=== PATIENT | male | born 1975 | race Caucasian/White ===

== ENCOUNTER 2016-05-29 22:00 | Emergency (ER) | payer OTHER ==
[~2016-05-29] VITALS: Ht 198.1 cm; Wt 113.0 kg
[~2016-05-29 22:00] MED LIST: COPA20KI INJ; PERC10TA27 PO
[2016-05-29 22:03] VITALS: BP 124/69; PULSE 60; RESP 16; TEMP 98; O2SAT 100
[2016-05-29] MEDS ORDERED: COPA20KI SQ ×2 (23:20→23:28)
--- NOTE | 2016-05-29 23:21 | PD ---
HPI Chief Complaint: Back/ Neck Pain or Injury Time Seen by Provider: 23:17 Travel History International Travel<30 days: No Contact w/Intl Traveler<30days: No Traveled to known affect area: No History of Present Illness HPI 40-year-old black male with a history of MS presents to emergency department requesting a refill of his medications. He states that he is in a residential. Someone has taken his medications. He states that he's been homeless now for the last several years. He has multiple sclerosis. He was sent to a residential this past week. He has had no recent illness. Patient complains of chronic muscle weakness. [facility] Past Medical History Narrative Medical MS, homelessness Neurologic: Yes (multiple sclerosis) Tetanus Vaccination: < 5 Years Past Surgical History Surgical History: No Previous Surgery Social History Alcohol Use: No Tobacco Use: Yes (03/29 PPD) Substance Use: Yes Allergies-Medications (Allergen,Severity, Reaction): Coded Allergies: No Known Allergies (Unverified , 05/29/16) Reported Meds & Prescriptions Reported Meds & Active Scripts Active Reported Copaxone Inj (Glatiramer Inj) 20 Mg/Ml Syr 20 Mg SQ DAILY Review of Systems Except as stated in HPI: all other systems reviewed are Neg General / Constitutional: No: Fever Eyes: No: Blurred Vision, Photophobia HENT: No: Sore Throat Cardiovascular: No: Chest Pain or Discomfort, Palpitations Respiratory: No: Cough, Shortness of Breath Gastrointestinal: No: Nausea, Vomiting Genitourinary: No: Dysuria, Hematuria Musculoskeletal: Positive: Myalgias, Arthralgias, Limited ROM, Pain (myalgias) Skin: No Rash, No Itching Neurologic: Positive: Weakness (chronic secondary to MS), Coordination Problem , No: Headache Physical Exam Narrative GENERAL: This is a well-nourished, well-developed patient, in no apparent distress. SKIN: No rashes, ecchymoses or lesions. Warm and dry. HEAD: Atraumatic. Normocephalic. EYES: PERRL, EOMI, no discharge or injection. No scleral icterus. EARS: Clear NOSE: Nasal turbinates appear normal. THROAT: Mucosa pink and moist. Airway patent. NECK: Trachea midline. supple, moves head freely. LUNGS: Clear to auscultation. CV: Regular in rhythm. ABDOMEN: Soft nontender. EXT: No clubbing cyanosis or edema. Chronic rigidity and muscle weakness secondary to his MS Data Data Last Documented VS Vital Signs Date Time Temp Pulse Resp B/P Pulse Ox O2 Delivery O2 Flow Rate FiO2 05/29/16 22:03 98.0 60 16 124/69 100 MDM Medical Decision Making Medical Screen Exam Complete: Yes Emergency Medical Condition: Yes Medical Record Reviewed: Yes Differential Diagnosis Differential diagnoses: Multiple sclerosis, med refill, homelessness Narrative Course Unfortunately we don't carry this medication here at the hospital. He is given a prescription and discharged in stable condition. This is medication refill, MS, homelessness Diagnosis Primary Impression: Medication refill Additional Impressions: Multiple sclerosis Homelessness Patient Instructions: General Instructions Additional Instructions: Rest. Medications as directed. Return to the ER for emergencies. Med/Other Pt SpecificInfo: Prescription(s) given Disposition: 01 DISCHARGE HOME Condition: Stable Marck Calvert May 29, 2016 23:21 Marck Calvert May 29, 2016 23:21
== END 2016-05-30 12:58 | disposition home or self-care (01) ==
LOC: NEPB 22:00
DX: G35 Multiple sclerosis (principal); Z76.0 Encounter for issue of repeat prescription; Z59.0 Homelessness
CPT/HCPCS: 99282

== ENCOUNTER 2016-06-14 19:30 | Emergency (ER) | payer OTHER ==
[~2016-06-14 19:30] MED LIST changes: -COPA20KI INJ; +COPA20KI SQ; -PERC10TA27 PO
[2016-06-14 19:33] VITALS: BP 141/68; PULSE 67; RESP 16; TEMP 97.9; O2SAT 98
[2016-06-14] MEDS ORDERED: SODIUM CHLORIDE 0.9% FLUSH 5 ML FLUSH IVF PRN (23:45)
[2016-06-14 23:56] LABS: AUTOMATED NEUTROPHIL # 6.4 TH/MM3 (1.8-7.7); BASOPHIL # 0.1 TH/MM3 (0-0.2); BASOPHIL % 0.8 % (0.0-2.0); EOSINOPHIL # 0.1 TH/MM3 (0-0.4); EOSINOPHIL % 1.4 % (0.0-4.0); HEMATOCRIT 38.8 % (39.0-51.0); HEMO FLAGS DIFF FINAL; LYMPH % 20.8 % (9.0-44.0); LYMPHOCYTE # 1.9 TH/MM3 (1.0-4.8); MEAN CELL VOLUME 95.3 FL (80.0-100.0); MEAN CORPUSCULAR HEMOGLOBIN 31.9 PG (27.0-34.0); MEAN CORPUSCULAR HGB CONC 33.5 % (32.0-36.0); MONO % 7.8 % (0.0-8.0); NEUT % 69.2 % (16.0-70.0); PLATELET COUNT 257 TH/MM3 (150-450); RED BLOOD COUNT 4.07 MIL/MM3 (4.50-5.90); RED CELL DISTRIBUTION WIDTH 15.3 % (11.6-17.2); WHITE BLOOD COUNT 9.2 TH/MM3 (4.0-11.0)
[2016-06-15] LABS: AMPHETAMINE, URINE NEG (NEG); BARBITURATES, URINE NEG (NEG); COCAINE, URINE NEG (NEG)
[2016-06-15 00:09] LABS: ALT (GPT) 29 U/L (12-78); ANION GAP 8 MEQ/L (5-15); AST (GOT) 18 U/L (15-37); BLOOD UREA NITROGEN 9 MG/DL (7-18); CHLORIDE 105 MEQ/L (98-107); GLOMERULAR FILTRATION RATE 99 ML/MIN (>89); POTASSIUM 4.1 MEQ/L (3.5-5.1); SODIUM (NA) 141 MEQ/L (136-145)
[2016-06-15 00:12] LABS: ACETAMINOPHEN LESS THAN 2.0 MCG/ML (10.0-30.0); ALKALINE PHOSPHATASE 92 U/L (45-117); TOTAL BILIRUBIN ADULT 0.4 MG/DL (0.2-1.0)
--- NOTE | 2016-06-15 01:15 | PD ---
HPI Chief Complaint: Edema Time Seen by Provider: 23:03 Travel History International Travel<30 days: No Contact w/Intl Traveler<30days: No Traveled to known affect area: No History of Present Illness HPI The patient's 40 years old. He arrives complaining of "my feet, my legs, my back." He reports history of chronic back pain. He's had no fever. He's had no chest pain. He denies drug or alcohol abuse today. Patient reports to the triage nurse he is homeless. He also reports he has had edema of the bilateral lower extremities for a couple months now. [facility] Past Medical History Diminished Hearing: No Musculoskeletal: Yes (back pain) Neurologic: Yes (multiple sclerosis) Tetanus Vaccination: > 5 Years Influenza Vaccination: No Past Surgical History Surgical History: No Previous Surgery Social History Alcohol Use: No Tobacco Use: Yes (1/2 PPD) Substance Use: Yes Allergies-Medications (Allergen,Severity, Reaction): Coded Allergies: No Known Allergies (Unverified , 06/14/16) Reported Meds & Prescriptions Reported Meds & Active Scripts Active Review of Systems Except as stated in HPI: all other systems reviewed are Neg General / Constitutional: No: Fever, Chills Musculoskeletal: Positive: Edema Physical Exam Narrative GENERAL: 40-year-old male, no acute distress, resting comfortably in his wheelchair SKIN: Warm and dry. HEAD: Atraumatic. Normocephalic. EYES: Pupils equal and round. No scleral icterus. No injection or drainage. ENT: No nasal bleeding or discharge. Mucous membranes pink and moist. NECK: Trachea midline. No JVD. CARDIOVASCULAR: Regular rate and rhythm. No murmur appreciated. RESPIRATORY: No accessory muscle use. Clear to auscultation. Breath sounds equal bilaterally. GASTROINTESTINAL: Abdomen soft, non-tender, nondistended. Hepatic and splenic margins not palpable. MUSCULOSKELETAL: No obvious deformities. No clubbing. No cyanosis. 2+ pitting edema of the dorsal feet to the knees. No asymmetry or erythema. History NEUROLOGICAL: Awake and alert. No obvious cranial nerve deficits. Motor grossly within normal limits. Normal speech. PSYCHIATRIC: Appropriate mood and affect; insight and judgment normal. Data Data Last Documented VS Vital Signs Date Time Temp Pulse Resp B/P Pulse Ox O2 Delivery O2 Flow Rate FiO2 06/14/16 23:02 18 Room Air 06/14/16 19:33 97.9 67 141/68 98 Vital signs reviewed Orders Complete Blood Count With Diff (06/14/16 23:32) Comprehensive Metabolic Panel (06/14/16 23:32) Blood Glucose (06/14/16 23:32) Ecg Monitoring (06/14/16 23:32) Iv Access Insert/Monitor (06/14/16 23:32) Oximetry (06/14/16 23:32) Sodium Chloride 0.9% Flush (Ns Flush) (06/14/16 23:45) Drug Screen, Random Urine (06/14/16 23:32) Alcohol (Ethanol) (06/14/16 23:32) Salicylates (Aspirin) (06/14/16 23:32) Tylenol (Acetaminophen) (06/14/16 23:32) Labs Laboratory Tests Test 06/14/16 23:40 White Blood Count 9.2 TH/MM3 Red Blood Count 4.07 MIL/MM3 Hemoglobin 13.0 GM/DL Hematocrit 38.8 % Mean Corpuscular Volume 95.3 FL Mean Corpuscular Hemoglobin 31.9 PG Mean Corpuscular Hemoglobin 33.5 % Concent Red Cell Distribution Width 15.3 % Platelet Count 257 TH/MM3 Mean Platelet Volume 7.6 FL Neutrophils (%) (Auto) 69.2 % Lymphocytes (%) (Auto) 20.8 % Monocytes (%) (Auto) 7.8 % Eosinophils (%) (Auto) 1.4 % Basophils (%) (Auto) 0.8 % Neutrophils # (Auto) 6.4 TH/MM3 Lymphocytes # (Auto) 1.9 TH/MM3 Monocytes # (Auto) 0.7 TH/MM3 Eosinophils # (Auto) 0.1 TH/MM3 Basophils # (Auto) 0.1 TH/MM3 CBC Comment DIFF FINAL Differential Comment Sodium Level 141 MEQ/L Potassium Level 4.1 MEQ/L Chloride Level 105 MEQ/L Carbon Dioxide Level 28.0 MEQ/L Anion Gap 8 MEQ/L Blood Urea Nitrogen 9 MG/DL Creatinine 0.85 MG/DL Estimat Glomerular Filtration 99 ML/MIN Rate Random Glucose 107 MG/DL Calcium Level 9.0 MG/DL Total Bilirubin 0.4 MG/DL Aspartate Amino Transf 18 U/L (AST/SGOT) Alanine Aminotransferase 29 U/L (ALT/SGPT) Alkaline Phosphatase 92 U/L Total Protein 7.8 GM/DL Albumin 4.0 GM/DL Salicylates Level 4.0 MG/DL Urine Opiates Screen NEG Acetaminophen Level LESS THAN 2.0 MCG/ML Urine Barbiturates Screen NEG Urine Amphetamines Screen NEG Urine Benzodiazepines Screen NEG Urine Cocaine Screen NEG Urine Cannabinoids Screen POS Ethyl Alcohol Level LESS THAN 3 MG/DL MDM Medical Decision Making Medical Screen Exam Complete: Yes Emergency Medical Condition: Yes Medical Record Reviewed: Yes Differential Diagnosis Hypoalbuminemia, anemia, renal failure Narrative Course CBC & BMP Diagram 06/14/16 23:40 LFTs normal U drug screen wen-negative EtOH < 3 Patient has rested comfortably throughout his ER stay. Workup is essentially unremarkable. The patient can be discharged. Diagnosis Primary Impression: Bilateral lower extremity edema Referrals: Primary Care Physician 2 days Additional Instructions: You have a choice when it comes to health care, and we are glad that you chose [facility]. Hopefully, we have met your expectations on today's visit. You are welcome to return to [facility] at any time, as we are committed to meeting the health care needs of our community. Med/Other Pt SpecificInfo: No Change to Meds Disposition: 01 DISCHARGE HOME Condition: Tin Mckinney MD Jun 15, 2016 01:15
[2016-06-15 03:48] VITALS: BP 139/95; PULSE 84; RESP 18; TEMP 98.4; O2SAT 100
== END 2016-06-15 04:33 | disposition home or self-care (01) ==
LOC: NEPE 19:30
DX: R60.0 Localized edema (principal); G35 Multiple sclerosis; G89.29 Other chronic pain; F17.210 Nicotine dependence, cigarettes, uncomplicated
CPT/HCPCS: 80053; 80307; 85025; 99284

== ENCOUNTER 2016-06-18 03:09 | Emergency (ER) | payer OTHER ==
[2016-06-18 03:28] VITALS: BP 132/74; PULSE 76; RESP 18; TEMP 97.6; O2SAT 96
--- NOTE | 2016-06-18 03:38 | PD ---
HPI Chief Complaint: chronic leg swelling Time Seen by Provider: 03:31 Travel History International Travel<30 days: No Contact w/Intl Traveler<30days: No Traveled to known affect area: No History of Present Illness HPI 40-year-old male presents to emergency department by EMS for evaluation of leg swelling. This is a patient who had just been seen here in the ER a few days ago for the same problem. Police responded to people loitering at a convenience store. Once they arrived on scene one of the 2 individuals requested medical care. The other individual was arrested and brought to residential. The patient has a history of MS and is wheelchair-bound. He is homeless. He has a history of chronic leg edema and lower back pain. His presenting complaint is the same. There has been no acute changes since his last evaluation. The patient here closes his eyes and goes to sleep readily. He wakes up only momentarily to answer a few questions and falls back to sleep. PFSH Past Medical History Narrative Medical Multiple sclerosis, CHRONIC BACK PAIN, CHRONIC PEDAL EDEMA Diminished Hearing: No Musculoskeletal: Yes (back pain) Neurologic: Yes (multiple sclerosis) Tetanus Vaccination: Unknown Social History Alcohol Use: No Tobacco Use: Yes (03/29 PPD) Substance Use: Yes Allergies-Medications (Allergen,Severity, Reaction): Coded Allergies: No Known Allergies (Unverified , 06/14/16) Reported Meds & Prescriptions Reported Meds & Active Scripts Active Review of Systems Except as stated in HPI: all other systems reviewed are Neg General / Constitutional: No: Fever, Chills Eyes: No: Blurred Vision, Photophobia HENT: No: Headaches, Neck Stiffness Cardiovascular: No: Chest Pain or Discomfort, Palpitations Respiratory: No: Cough, Shortness of Breath Gastrointestinal: No: Nausea, Vomiting Genitourinary: No: Dysuria, Hematuria Musculoskeletal: Positive: Arthralgias, Weakness, Edema, Pain Skin: No Rash Physical Exam Narrative GENERAL: This is a well-nourished, well-developed patient, in no apparent distress. SKIN: No rashes, ecchymoses or lesions. Warm and dry. HEAD: Atraumatic. Normocephalic. EYES: PERRL, EOMI, no discharge or injection. No scleral icterus. EARS: Clear NOSE: Nasal turbinates appear normal. THROAT: Mucosa pink and moist. Airway patent. NECK: Trachea midline. supple, moves head freely. LUNGS: Clear to auscultation. CV: Regular in rhythm. ABDOMEN: Soft nontender. EXT: No clubbing cyanosis has 2+ pitting edema from the knees down into the feet. The skin is intact. He has intact gross sensation and Refill. MDM Medical Decision Making Medical Screen Exam Complete: Yes Emergency Medical Condition: Yes Medical Record Reviewed: Yes Differential Diagnosis Differential diagnoses: Electrolyte abnormality, chronic pedal edema, chronic back pain, malingering Narrative Course This is a 40-year-old homeless male with a history of chronic back pain and pedal edema in a wheelchair. I suspect his complaint for evaluation is directed related to the police encounter. The patient has no emergent condition identified. I've reviewed his record from a few days ago. There is no secondary intervention needed. The patient is somnolent. He's arousable for exam but falls asleep readily. I suspect this is most likely a malingering aspect on the patient Chronic pedal edema, chronic back pain Diagnosis Primary Impression: Bilateral lower extremity edema Additional Impressions: Chronic back pain Malingering Additional Instructions: Rest. Follow-up with a primary care doctor for recheck next week. [facility]. Med/Other Pt SpecificInfo: No Meds Exist/No RX given Disposition: 01 DISCHARGE HOME Condition: Stable Marck Calvert Jun 18, 2016 03:38
== END 2016-06-18 06:10 | disposition home or self-care (01) ==
LOC: NEPB 03:09
DX: R60.0 Localized edema (principal); M54.5 Low back pain; G89.29 Other chronic pain; G35 Multiple sclerosis; F17.200 Nicotine dependence, unspecified, uncomplicated; Z76.5 Malingerer [conscious simulation]; Z99.3 Dependence on wheelchair; Z59.0 Homelessness; Z87.39 Personal history of other diseases of the musculoskeletal system and connective tissue
CPT/HCPCS: 99283

== ENCOUNTER 2016-06-21 01:14 | Emergency (ER) | payer OTHER ==
[~2016-06-21] VITALS: Ht 198.1 cm; Wt 100.0 kg
[2016-06-21 01:29] VITALS: BP 145/100; PULSE 88; RESP 18; TEMP 98.1; O2SAT 99
--- NOTE | 2016-06-21 01:34 | PD ---
HPI Chief Complaint: Psychiatric Symptoms Time Seen by Provider: 01:31 Travel History International Travel<30 days: No Contact w/Intl Traveler<30days: No Traveled to known affect area: No History of Present Illness HPI Patient comes in under [place] act by police for having suicidal thoughts. He states he thought about rolling his wheelchair in front of the truck however the right truck had not come along yet and is why he could not do it. Patient states he is just tired of everything and tired of being homeless. Patient's only medical complaint is his chronic back pain and chronic bilateral lower extremity edema. Denies any chest pain, shortness breath, fever, headaches, or abdominal pain. PFSH Past Medical History Diminished Hearing: No Musculoskeletal: Yes (back pain) Neurologic: Yes (multiple sclerosis) ?: Not Social History Alcohol Use: No Tobacco Use: Yes (1/2 PPD) Substance Use: Yes Allergies-Medications (Allergen,Severity, Reaction): Coded Allergies: No Known Allergies (Unverified , 06/14/16) Reported Meds & Prescriptions Reported Meds & Active Scripts Active Review of Systems Except as stated in HPI: all other systems reviewed are Neg Physical Exam Narrative GENERAL: Well-developed, well nourished, in no acute distress, and non-ill appearing. SKIN: Warm and dry. HEAD: Atraumatic. Normocephalic. EYES: Pupils equal and round. EOMI. No scleral icterus. No injection or drainage. ENT: No nasal bleeding or discharge. Mucous membranes pink and moist. NECK: Trachea midline. Supple. No nuclear rigidity. CARDIOVASCULAR: Regular rate and rhythm. No murmur appreciated. RESPIRATORY: No accessory muscle use. No respiratory distress. Clear to auscultation. Breath sounds equal bilaterally. MUSCULOSKELETAL: No obvious deformities. No clubbing. No cyanosis. 2+ pitting edema bilateral lower extremities dorsal aspect of feet to the knee. Appears unchanged from previous visits and is reported to chronic by patient.. Full range of motion of bilateral upper extremities. NEUROLOGICAL: Awake and alert. No obvious cranial nerve deficits. Motor grossly within normal limits. Normal speech. PSYCHIATRIC: Appropriate mood and affect. Data Data Last Documented VS Vital Signs Date Time Temp Pulse Resp B/P Pulse Ox O2 Delivery O2 Flow Rate FiO2 06/21/16 01:29 98.1 88 18 145/100 99 Orders Complete Blood Count With Diff (06/21/16 01:21) Comprehensive Metabolic Panel (06/21/16 01:21) Psych Screen (06/21/16 01:21) Drug Screen, Random Urine (06/21/16 01:21) Alcohol (Ethanol) (06/21/16 01:21) Salicylates (Aspirin) (06/21/16 01:21) Tylenol (Acetaminophen) (06/21/16 01:21) Labs Laboratory Tests Test 06/21/16 01:30 White Blood Count 7.1 TH/MM3 Red Blood Count 3.82 MIL/MM3 Hemoglobin 12.4 GM/DL Hematocrit 35.8 % Mean Corpuscular Volume 93.7 FL Mean Corpuscular Hemoglobin 32.5 PG Mean Corpuscular Hemoglobin 34.7 % Concent Red Cell Distribution Width 15.6 % Platelet Count 344 TH/MM3 Mean Platelet Volume 9.1 FL Neutrophils (%) (Auto) 49.4 % Lymphocytes (%) (Auto) 35.3 % Monocytes (%) (Auto) 11.7 % Eosinophils (%) (Auto) 2.4 % Basophils (%) (Auto) 1.2 % Neutrophils # (Auto) 3.5 TH/MM3 Lymphocytes # (Auto) 2.5 TH/MM3 Monocytes # (Auto) 0.8 TH/MM3 Eosinophils # (Auto) 0.2 TH/MM3 Basophils # (Auto) 0.1 TH/MM3 CBC Comment DIFF FINAL Differential Comment Sodium Level 139 MEQ/L Potassium Level 4.5 MEQ/L Chloride Level 107 MEQ/L Carbon Dioxide Level 26.2 MEQ/L Anion Gap 6 MEQ/L Blood Urea Nitrogen 15 MG/DL Creatinine 0.82 MG/DL Estimat Glomerular Filtration 104 ML/MIN Rate Random Glucose 97 MG/DL Calcium Level 8.7 MG/DL Total Bilirubin 0.3 MG/DL Aspartate Amino Transf 28 U/L (AST/SGOT) Alanine Aminotransferase 22 U/L (ALT/SGPT) Alkaline Phosphatase 88 U/L Total Protein 7.4 GM/DL Albumin 3.7 GM/DL Salicylates Level 3.7 MG/DL Acetaminophen Level LESS THAN 2.0 MCG/ML Ethyl Alcohol Level LESS THAN 3 MG/DL MDM Medical Decision Making Medical Screen Exam Complete: Yes Emergency Medical Condition: Yes Differential Diagnosis Homicidal, suicidal, malingering, electrolyte abnormality, homeless, other Narrative Course Patient was seen and examined. Labs were obtained and reviewed with the exception urine drug screen that has not been sent. Patient medically cleared for further treatment and evaluation by psych. Final disposition per psych. Diagnosis Primary Impression: Suicidal ideation Additional Impression: Bilateral lower extremity edema Condition: Stable Og Oseguera Jun 21, 2016 01:34
[2016-06-21 01:44] LABS: AUTOMATED NEUTROPHIL # 3.5 TH/MM3 (1.8-7.7); BASOPHIL # 0.1 TH/MM3 (0-0.2); BASOPHIL % 1.2 % (0.0-2.0); EOSINOPHIL # 0.2 TH/MM3 (0-0.4); EOSINOPHIL % 2.4 % (0.0-4.0); HEMATOCRIT 35.8 % (39.0-51.0); HEMO FLAGS DIFF FINAL; LYMPH % 35.3 % (9.0-44.0); LYMPHOCYTE # 2.5 TH/MM3 (1.0-4.8); MEAN CELL VOLUME 93.7 FL (80.0-100.0); MEAN CORPUSCULAR HEMOGLOBIN 32.5 PG (27.0-34.0); MEAN CORPUSCULAR HGB CONC 34.7 % (32.0-36.0); MONO % 11.7 % (0.0-8.0); NEUT % 49.4 % (16.0-70.0); PLATELET COUNT 344 TH/MM3 (150-450); RED BLOOD COUNT 3.82 MIL/MM3 (4.50-5.90); RED CELL DISTRIBUTION WIDTH 15.6 % (11.6-17.2); WHITE BLOOD COUNT 7.1 TH/MM3 (4.0-11.0)
[2016-06-21 01:57] LABS: ALKALINE PHOSPHATASE 88 U/L (45-117); TOTAL BILIRUBIN ADULT 0.3 MG/DL (0.2-1.0)
[2016-06-21 02:12] LABS: ALT (GPT) 22 U/L (12-78); AST (GOT) 28 U/L (15-37); BLOOD UREA NITROGEN 15 MG/DL (7-18); GLOMERULAR FILTRATION RATE 104 ML/MIN (>89)
[2016-06-21 02:13] LABS: ACETAMINOPHEN LESS THAN 2.0 MCG/ML (10.0-30.0); ANION GAP 6 MEQ/L (5-15); BICARBONATE 26.2 MEQ/L (21.0-32.0); CHLORIDE 107 MEQ/L (98-107); POTASSIUM 4.5 MEQ/L (3.5-5.1); SODIUM (NA) 139 MEQ/L (136-145)
[2016-06-21 05:45] LABS: AMPHETAMINE, URINE NEG (NEG); BARBITURATES, URINE NEG (NEG); COCAINE, URINE NEG (NEG)
[2016-06-21 06:51] VITALS: BP 166/81; PULSE 79; RESP 18; TEMP 97.6; O2SAT 97
[2016-06-21 11:43] VITALS: BP 129/76; PULSE 71; RESP 18; O2SAT 98
--- NOTE | 2016-06-21 16:21 | PD ---
History of Present Illness Chief Complaint: Psychiatric Symptoms Time Seen by Provider: 15:00 Travel History International Travel<30 Days: No Contact w/Intl Traveler<30days: No Known affected area: No Legal Status Legal Status: Miguel Act Mgiuel Act Signed By: Jessica Cerda History of Present Illness: History of Present Illness HPI Patient is a 40 year old male with no previous psychiatric history who comes in under Miguel act initiated by police. As per the report he reported to the police that he was going to roll his wheelchair into traffic so that a car would hit him. Also reported feeling depressed with no where to go. Patient reports he is homeless. As per ED documentation he told the ed provider " he thought about rolling his wheelchair in front of the truck however the right truck had not come along yet and is why he could not do it." Patient has presented to ED twice within this week with complaints of swelling in his legs and has not reported any depression or suicidal ideation. EMR is reviewed. He was evaluated as an ex parte in 2015 and was discharged home as he presented no justifiable criteria or psychiatric symptoms. Current toxicology is positive for cannabinoids. Patient is seen in [facility]. He is asleep but awakens but is sleepy. He is unkempt and very tanned. His speech is hyperverbal. No pressure,. It is clear and logical. He does not appear internally stimulated and denies any hallucinatory problems. He states " I need a place to live and I need to get my money. I have been living on the streets since I got out of longterm and I'm tired of that. No one is doing anything for me. He does not endorse any suicidal ideation at this time . He is focused on getting an apartment and getting his social security check. I inform him that [facility] get [facility] connected with a skilled nursing . He initially refuses this option and states " I am not looking for a skilled nursing I need my own apartment". He comes across as very demanding and entitled. [facility] Past Medical History Diminished Hearing: No Musculoskeletal: Yes (back pain) Neurologic: Yes (multiple sclerosis) ?: Not Past Surgical History Surgical History: No Previous Surgery Psychiatric History Psychiatric History Hx Psychiatric Treatment: PT STATES HX OF ADHD A CHILD No tx as an adult History of Inpatient Treatment: No Guns or firearms in home: No Social History Born in [place]. Single. Homeless x 4 months. Has been incarcerated for most of his adult life. Hx Alcohol Use: No Hx Tobacco Use: Yes (1/2 PPD) Hx Substance Use: Yes Substance Use Type: Alcohol, Crack, Marijuana, Nicotine/Cigarettes Other Substances Used: HX OF Hx of Substance Use Treatment: Yes Family Psychiatric History None reported Allergies-Medications (Allergen,Severity, Reaction): Coded Allergies: No Known Allergies (Unverified , 06/14/16) Reported Meds & Prescriptions Reported Meds & Active Scripts Active Active Prescriptions or Reported Medications Unobtainable Review of Systems Constitutional: COMPLAINS OF: Fatigue Endocrine: DENIES: Heat/cold intolerance, Polydipsia, Polyuria, Polyphagia Eyes: DENIES: Blurred vision, Diplopia, Eye inflammation, Eye pain, Vision loss , Photosensitivity, Double Vision Ears, nose, mouth, throat: DENIES: Tinnitus, Hearing loss, Vertigo, Nasal discharge, Oral lesions, Throat pain, Hoarseness, Ear Pain, Running Nose, Epistaxis, Sinus Pain, Toothache, Odynophagia Respiratory: DENIES: Apneas, Cough, Snoring, Wheezing, Hemoptysis, Sputum production, Shortness of breath Cardiovascular: COMPLAINS OF: Lower Extremity Edema Gastrointestinal: DENIES: Abdominal pain, Black stools, Bloody stools, Constipation, Diarrhea, Nausea, Vomiting, Difficulty Swallowing, Anorexia Genitourinary: COMPLAINS OF: Urinary incontinence Musculoskeletal: COMPLAINS OF: Joint pain, Back pain Integumentary: DENIES: Abnormal pigmentation, Nail changes, Pruritus, Rash Hematologic/lymphatic: DENIES: Bruising, Lymphadenopathy Immunologic/allergic: DENIES: Eczema, Urticaria Neurologic: COMPLAINS OF: Localized weakness, Poor Balance (pt wheelchair bound ) Psychiatric: DENIES: Anxiety, Confusion, Mood changes, Depression, Hallucinations, Agitation, Suicidal Ideation, Homicidal Ideation, Delusions Exam Alert: Yes [place]: Person (ox4) Mood: Angry Affect: Euthymic Speech: Clear, Logical, Fast Eye Contact: Indirect Memory Intact: Comment (no impairmetn) Hallucinations: Other (neagtive) Delusions: No Suicidal: Ideation (denies any) Homicidal: Ideation (denies any) Insight/Judgement poor. not impaired MDM Medical Decision Making Medical Record Reviewed: Yes Assessment/Plan 40 year old male with MS, wheelchair bound, homeless after release from longterm who presents to ED under a BA after he reported to the police he was thinking of rolling his wheelchair into traffic. Patient with no significant psychiatric symptomatology . He had presented twice before to the Ed and presented no suicidality. I strongly suspect that he is malingering his symptoms in order to obtain housing. I will lift the BA as he does not meet criteria. Unfortunately we cannot discharge him to the street due to his medical concerns. The hospital counselors have made plans for him to be transported to [facility] tomorrow. Orders Complete Blood Count With Diff (06/21/16 01:21) Comprehensive Metabolic Panel (06/21/16 01:21) Psych Screen (06/21/16 01:21) Drug Screen, Random Urine (06/21/16 01:21) Alcohol (Ethanol) (06/21/16 01:21) Salicylates (Aspirin) (06/21/16 01:21) Tylenol (Acetaminophen) (06/21/16 01:21) Diet Regular Basic (06/21/16 Breakfast) Diet Regular Basic (06/21/16 Lunch) Results Vital Signs Date Time Temp Pulse Resp B/P Pulse Ox O2 Delivery O2 Flow Rate FiO2 06/21/16 11:43 71 18 129/76 98 Room Air 06/21/16 06:51 97.6 79 18 166/81 97 Room Air 06/21/16 01:29 98.1 88 18 145/100 99 Laboratory Tests Test 06/21/16 06/21/16 01:30 05:10 White Blood Count 7.1 Red Blood Count 3.82 Hemoglobin 12.4 Hematocrit 35.8 Mean Corpuscular Volume 93.7 Mean Corpuscular Hemoglobin 32.5 Mean Corpuscular Hemoglobin 34.7 Concent Red Cell Distribution Width 15.6 Platelet Count 344 Mean Platelet Volume 9.1 Neutrophils (%) (Auto) 49.4 Lymphocytes (%) (Auto) 35.3 Monocytes (%) (Auto) 11.7 Eosinophils (%) (Auto) 2.4 Basophils (%) (Auto) 1.2 Neutrophils # (Auto) 3.5 Lymphocytes # (Auto) 2.5 Monocytes # (Auto) 0.8 Eosinophils # (Auto) 0.2 Basophils # (Auto) 0.1 CBC Comment DIFF FINAL Differential Comment Sodium Level 139 Potassium Level 4.5 Chloride Level 107 Carbon Dioxide Level 26.2 Anion Gap 6 Blood Urea Nitrogen 15 Creatinine 0.82 Estimat Glomerular Filtration 104 Rate Random Glucose 97 Calcium Level 8.7 Total Bilirubin 0.3 Aspartate Amino Transf 28 (AST/SGOT) Alanine Aminotransferase 22 (ALT/SGPT) Alkaline Phosphatase 88 Total Protein 7.4 Albumin 3.7 Salicylates Level 3.7 Acetaminophen Level LESS THAN 2.0 Ethyl Alcohol Level LESS THAN 3 Urine Opiates Screen NEG Urine Barbiturates Screen NEG Urine Amphetamines Screen NEG Urine Benzodiazepines Screen NEG Urine Cocaine Screen NEG Urine Cannabinoids Screen NEG Diagnosis Primary Impression: Malingering Additional Impression: Bilateral lower extremity edema Ruled Out: Suicidal ideation Prescriptions Unable to Obtain Active Prescriptions or Reported Meds Condition: Stable Problem Qualifiers Gisell Lundberg Jun 21, 2016 16:20
[2016-06-21 18:23] VITALS: BP 148/70; PULSE 87; RESP 18; O2SAT 98
[2016-06-21 22:36] VITALS: BP 114/61; PULSE 75; RESP 18; O2SAT 97
[2016-06-22 02:25] VITALS: BP 150/80; PULSE 75; RESP 19; O2SAT 98
[2016-06-22 06:33] VITALS: BP 135/71; PULSE 83; RESP 16; O2SAT 99
== END 2016-06-22 10:17 | disposition home or self-care (01) ==
LOC: NEPA 01:14 → NEPJ 06-22 10:17
DX: R45.851 Suicidal ideations (principal); Z76.5 Malingerer [conscious simulation]; R60.0 Localized edema; G35 Multiple sclerosis; G89.29 Other chronic pain; F17.210 Nicotine dependence, cigarettes, uncomplicated; Z59.0 Homelessness
CPT/HCPCS: 80053; 80307; 85025; 99283

== ENCOUNTER 2016-07-04 22:02 | Inpatient (IN) | payer OTHER ==
[~2016-07-04] VITALS: Ht 198.1 cm; Wt 126.8 kg
[2016-07-04 22:26] VITALS: BP 163/98; PULSE 74; RESP 18; TEMP 98.2; O2SAT 100
[2016-07-05] VITALS (7 sets, daily range): BP systolic 125–150; BP diastolic 69–95; PULSE 73–94; RESP 16–20; TEMP 97.8–99; O2SAT 96–98
[2016-07-05] MEDS ORDERED: CLINDAMYCIN INJ 600 MG in SODIUM CHLORIDE 0.9% INJ 100 ML IV ONE (04:00)
[2016-07-05] MEDS ORDERED: ceFAZolin 2 GM PREMIX 50 ML IV ONE (04:00)
--- NOTE | 2016-07-05 04:04 | PD ---
HPI Chief Complaint: Edema Time Seen by Provider: 03:26 Travel History International Travel<30 days: No Contact w/Intl Traveler<30days: No Traveled to known affect area: No History of Present Illness HPI The patient is a 40 year old male who presents to the [facility] emergency department with a history of lower extremity edema and pain that he reports first began a month ago. Unfortunately, the patient is a poor historian and from reviewing his electronic medical record he has been in to this facility previously with reports of lower extremity edema that is chronic. The patient however at this time reports that he is concerned that he may need antibiotic. On further examination of his right lower extremity is noted to have a draining abscess along the right anterior archuleta. He is unsure exactly how long that is been there. He denies any insect bites or any known injuries. The patient is currently homeless. The patient is using a wheelchair for mobility as he does have a history of multiple sclerosis that was diagnosed in 2000. The patient reports that he has had a subjective fever and chills. He reports that he is also had occasional diarrhea. He denies having any vomiting. The patient denies any cough, congestion, neck pain, chest pain, shortness of breath, abdominal pain, new urinary symptoms, or new neurologic symptoms. [facility] Past Medical History Narrative Medical The patient's past medical history is significant for multiple sclerosis that is of the remitting relapsing nature. The patient has a history of urinary incontinence related to his multiple sclerosis. The patient has a history of chronic lower extremity edema. He denies any prior history of problems with skin infections, history of chronic back pain. Diminished Hearing: No Musculoskeletal: Yes (back pain) Neurologic: Yes (multiple sclerosis) Social History Alcohol Use: No Tobacco Use: Yes (1/2 PPD) Substance Use: Yes (marijuana occasionally) Allergies-Medications (Allergen,Severity, Reaction): Coded Allergies: No Known Allergies (Unverified , 07/05/16) Reported Meds & Prescriptions Reported Meds & Active Scripts Active Review of Systems Except as stated in HPI: all other systems reviewed are Neg General / Constitutional: Positive: Fever, Chills Eyes: No: Visual changes HENT: No: Headaches Cardiovascular: Positive: Edema, No: Chest Pain or Discomfort Respiratory: No: Shortness of Breath Gastrointestinal: Positive: Diarrhea, Changes in Bowel Habits, No: Nausea, Vomiting, Abdominal Pain, Indigestion, Loss of Appetite Genitourinary: No: Dysuria Musculoskeletal: Positive: Myalgias, Edema, Pain Skin: Positive Lumps, Positive Change in Pigmentation, No Rash Neurologic: No: Weakness, Focal Abnormalities, Change in Mentation, Slurred Speech, Sensory Disturbance Psychiatric: No: Depression Endocrine: No: Polydipsia Hematologic/Lymphatic: No: Easy Bruising Physical Exam Narrative General: The patient is well-developed well-nourished male, drowsy on arrival, although arousable to voice. Head and Neck exam: Head is normocephalic atraumatic. Eyes: EOMI, pupils are equal round and reactive to light. Nose: Midline septum with pink mucous membranes Mouth: Dentition unremarkable. Moist mucus membranes. Posterior oropharynx is not erythematous. No tonsillar hypertrophy. Uvula midline. Airway patent. Neck: No palpable lymphadenopathy. No nuchal rigidity. No thyromegaly. Cardiovascular: Regular rate and rhythm without murmurs, gallops, or rubs. Lungs: Clear to auscultation bilaterally. No wheezes, rhonchi, or rales. Abdomen: Soft, without tenderness to palpation in all 4 quadrants of the abdomen. No guarding, rebound, or rigidity. Normal bowel sounds are audible. No tenderness on palpation of McBurney's point. Extremities: No clubbing or cyanosis. The patient has 2+ pitting edema bilateral lower extremities, slightly worse on the right compared to the left with on examination of the right lower extremity and area of draining abscess along the anterior right archuleta with surrounding cellulitis and tenderness on palpation. The patient's legs bilaterally are tender to palpation. There is swelling noted and bilateral inguinal areas. Back: No spinous process tenderness to palpation. No costovertebral angle tenderness to palpation. Neurologic Exam: Grossly non-focal Data Data Last Documented VS Vital Signs Date Time Temp Pulse Resp B/P Pulse Ox O2 Delivery O2 Flow Rate FiO2 07/05/16 06:30 77 16 150/95 96 Room Air 07/04/16 22:26 98.2 Orders Complete Blood Count With Diff (07/05/16 03:46) Basic Metabolic Panel (Bmp) (07/05/16 03:46) C-Reactive Protein (Crp) (07/05/16 03:46) Urinalysis - C+S If Indicated (07/05/16 03:46) Wound Culture And Gram Stain (07/05/16 03:46) Iv Access Insert/Monitor (07/05/16 03:46) Ecg Monitoring (07/05/16 03:46) Oximetry (07/05/16 03:46) Cefazolin 2 Gm Premix (Ancef 2 Gm Premix (07/05/16 04:00) Clindamycin Inj (Cleocin Inj) (07/05/16 04:00) Us Leg Venous Doppler Bilat (07/05/16 03:48) Lorazepam Inj (Ativan Inj) (07/05/16 05:30) Admit Order (Ed Use Only) (07/05/16 07:19) Labs Laboratory Tests Test 07/05/16 07/05/16 03:50 04:00 Urine Color YELLOW Urine Turbidity CLEAR Urine pH 6.0 Urine Specific [place] 1.033 Urine Protein TRACE mg/dL Urine Glucose (UA) NEG mg/dL Urine Ketones NEG mg/dL Urine Occult Blood NEG Urine Nitrite NEG Urine Bilirubin NEG Urine Urobilinogen 2.0 MG/DL Urine Leukocyte Esterase NEG Urine RBC 2 /hpf Urine WBC LESS THAN 1 /hpf Urine Calcium Oxalate Crystals OCC /hpf Urine Mucus FEW /lpf Microscopic Urinalysis Comment CULT NOT INDICATED White Blood Count 7.1 TH/MM3 Red Blood Count 3.65 MIL/MM3 Hemoglobin 11.9 GM/DL Hematocrit 34.6 % Mean Corpuscular Volume 94.9 FL Mean Corpuscular Hemoglobin 32.5 PG Mean Corpuscular Hemoglobin 34.3 % Concent Red Cell Distribution Width 14.4 % Platelet Count 278 TH/MM3 Mean Platelet Volume 7.3 FL Neutrophils (%) (Auto) 56.3 % Lymphocytes (%) (Auto) 28.1 % Monocytes (%) (Auto) 12.3 % Eosinophils (%) (Auto) 2.4 % Basophils (%) (Auto) 0.9 % Neutrophils # (Auto) 4.0 TH/MM3 Lymphocytes # (Auto) 2.0 TH/MM3 Monocytes # (Auto) 0.9 TH/MM3 Eosinophils # (Auto) 0.2 TH/MM3 Basophils # (Auto) 0.1 TH/MM3 CBC Comment DIFF FINAL Differential Comment Sodium Level 143 MEQ/L Potassium Level 4.5 MEQ/L Chloride Level 109 MEQ/L Carbon Dioxide Level 27.3 MEQ/L Anion Gap 7 MEQ/L Blood Urea Nitrogen 17 MG/DL Creatinine 0.88 MG/DL Estimat Glomerular Filtration 95 ML/MIN Rate Random Glucose 87 MG/DL Calcium Level 8.7 MG/DL C-Reactive Protein 0.36 MG/DL Albumin 3.4 GM/DL MDM Medical Decision Making Medical Screen Exam Complete: Yes Emergency Medical Condition: Yes Interpretation(s) Last Impressions Lower Extremity Ultrasound 07/05/16 0348 Signed Impressions: Service Date/Time: Tuesday, July 05, 2016 05:18 - CONCLUSION: 1. Limited study but no definite deep venous thrombosis in the lower extremities. 2. Enlarged lymph nodes in each groin bilaterally. Serjio Bob MD Differential Diagnosis Draining abscess with associated cellulitis, versus sepsis, versus DVT Narrative Course During the course of the patients emergency department visit, the patients history, examination, and differential diagnosis were reviewed with the patient. The patient had IV access obtained and blood work sent for analysis. The patient was placed on a monitor technician with oximetry and blood pressure monitoring. An ultrasound of bilateral lower extremities was ordered. The patient was provided Ancef 2 g IV, clindamycin 600 mg IV. The patients laboratory studies were reviewed and remarkable for a white count of 7.1, hemoglobin 11.9, platelets 278 with monocytes 12.3, BNP is remarkable for chloride of 109, C-reactive protein 0.36, urinalysis is unremarkable. Radiology studies were reviewed and remarkable for an ultrasound of bilateral lower extremities that was limited as the patient was having difficulty lying still related to the pain and also because of spasms in his legs from multiple sclerosis. The patient was given Ativan 1 mg IV for this. The ultrasound revealed no evidence of DVT, enlarged lymph nodes bilaterally with in greatest dimension on the right 5.2 cm lymph node, and on the left 4.8 cm lymph node. Given these findings and the patient's poor access to follow-up, the patient will be admitted for IV antibiotic and consideration of biopsy to rule out lymphoma. The patients results were discussed with the patient, including the plan of care. I explained that further testing and/ or monitoring is indicated based on the patients history, examination, and/ or laboratory findings. Therefore, I recommended admission for additional evaluation. The patient expressed understanding and was agreeable with this plan. The patient was admitted to the hospital in stable condition and [facility] Physician Communication Physician Communication The patient's [facility] The patient's case was discussed with . Diagnosis Primary Impression: Cellulitis and abscess of leg Additional Impression: Inguinal lymphadenopathy Admitting Information Admitting Physician Requests: Admit Laurie Ramirez MD Jul 05, 2016 04:04 Laurie Ramirez MD Jul 05, 2016 04:04
[2016-07-05 04:19] LABS: BASOPHIL # 0.1 TH/MM3 (0-0.2); BASOPHIL % 0.9 % (0.0-2.0); EOSINOPHIL # 0.2 TH/MM3 (0-0.4); EOSINOPHIL % 2.4 % (0.0-4.0); HEMATOCRIT 34.6 % (39.0-51.0); HEMO FLAGS DIFF FINAL; LYMPH % 28.1 % (9.0-44.0); MEAN CELL VOLUME 94.9 FL (80.0-100.0); MEAN CORPUSCULAR HEMOGLOBIN 32.5 PG (27.0-34.0); MEAN CORPUSCULAR HGB CONC 34.3 % (32.0-36.0); MONO % 12.3 % (0.0-8.0); NEUT % 56.3 % (16.0-70.0); PLATELET COUNT 278 TH/MM3 (150-450); RED BLOOD COUNT 3.65 MIL/MM3 (4.50-5.90); RED CELL DISTRIBUTION WIDTH 14.4 % (11.6-17.2); WHITE BLOOD COUNT 7.1 TH/MM3 (4.0-11.0)
[2016-07-05 04:29] LABS: BLOOD, URINE NEG (NEG); CALCIUM OXALATE CRYSTALS,URINE OCC /hpf; GLUCOSE,URINE NEG (NEG); KETONE, URINE NEG (NEG); MUCUS URINE FEW /lpf (OCC); NITRITE,URINE NEG (NEG); URINE COLOR YELLOW (YELLW/STRAW)
[2016-07-05 04:30] LABS: COMMENT (UR) CULT NOT INDICATED; CULTURE IF INDICATED CULT NOT INDICATED
[2016-07-05 04:37] LABS: BICARBONATE 27.3 MEQ/L (21.0-32.0); POTASSIUM 4.5 MEQ/L (3.5-5.1)
[2016-07-05] MEDS ORDERED: LORazepam 2 MG/ML VIAL IV PUSH ONE (05:30)
--- NOTE | 2016-07-05 06:26 | RADRPT ---
EXAM DATE/TIME: 07/05/2016 05:18 [place] COMPARISON: No previous studies available for comparison. INDICATIONS : Bilateral leg swelling and pain. MEDICAL HISTORY : Multiple sclerosis. Substance abuse. Attempted suicide. SURGICAL HISTORY : None. ENCOUNTER: Initial ACUITY: 1 month PAIN SCORE: 4/10 LOCATION: Bilateral legs. TECHNIQUE: Venous ultrasound of the left and right leg was performed from the inguinal ligament to the proximal calf. Real-time, color Doppler and spectral tracing, compression and augmentation techniques were us ed. FINDINGS: Exam is mildly limited. RIGHT LEG: There is normal compressibility of the deep venous system from the inguinal region to the proximal ca lf. No echogenic clot is seen in the lumen of the common femoral, femoral, popliteal, and posterior tibial veins. There is a normal response of the venous system to proximal and distal augmentation an d respiration. Enlarged lymph node in the right groin measures 5.2 x 2.7 x 1.6 cm. LEFT LEG: There is normal compressibility of the deep venous system from the inguinal region to the proximal ca lf. No echogenic clot is seen in the lumen of the common femoral, femoral, popliteal, and posterior tibial veins. There is a normal response of the venous system to proximal and distal augmentation an d respiration. Enlarged lymph node in the left groin measures 4.8 x 1.6 x 0.8 cm. CONCLUSION: 1. Limited study but no definite deep venous thrombosis in the lower extremities. 2. Enlarged lymph nodes in each groin bilaterally. Serjio Bob MD on July 05, 2016 at 6:22 Board Certified Radiologist. This report was verified electronically.
[2016-07-05] MEDS ORDERED: CEPH-460 PO (06:30)
[2016-07-05] MEDS ORDERED: BACT800T5 PO (06:30)
[2016-07-05] MEDS ORDERED: ACETAMINOPHEN 325 MG TAB PO PRN (07:45)
[2016-07-05] MEDS ORDERED: ONDANSETRON HCL 4 MG/2 ML VIAL IV PUSH PRN (07:45)
--- NOTE | 2016-07-05 07:52 | HHI.HP ---
[facility] Primary Care Physician No Primary Care Physician Admission Diagnosis bilateral inguinal lymphadenopathy, leg cellulitis with abscess R Diagnoses: (1) Bilateral lower extremity edema Diagnosis: Principal (2) Cellulitis and abscess of leg Diagnosis: Principal Chief Complaint: edema of both legs Travel History International Travel<30 Days: No Contact w/Intl Traveler <30 Da: No Traveled to Known Affected Are: No History of Present Illness patient is a 40 y/o male, homeless, poor historian, with reported history of MS who presented to ER with swelling of both legs. he was seen in ER a few times recently for the same reason. information is limited since the patient is not a good historian. however reports the edema in the legs for the past month. he denies any fever or chills. he was resting comfortably at the time of my evaluation. Review of Systems ROS Limitations: Poor Historian Cardiovascular: COMPLAINS OF: Lower Extremity Edema Past Family Social History Past Medical History MS Reported Medications none reported. Allergies: Coded Allergies: No Known Allergies (Unverified , 07/05/16) Active Ordered Medications Current Medications Cefazolin Sodium/ Dextrose 50 ml @ 100 mls/hr ONCE ONCE IV Last administered on 07/05/16 04:06; Start 07/05/16 at 04:00; Stop 07/05/16 at 04:29; Status DC Clindamycin Phosphate/Sodium Chloride (Cleocin Inj/NS Inj) 104 ml @ 208 mls/hr ONCE ONCE IV Last administered on 07/05/16 04:45; Start 07/05/16 at 04:00; Stop 07/05/16 at 04:29; Status DC Lorazepam (Ativan Inj) 1 mg ONCE ONCE IV PUSH Last administered on 07/05/16 05:37; Start 07/05/16 at 05:30; Stop 07/05/16 at 05:35; Status DC Social History he smokes half a pack a day and smokes marijuana occasionally. Physical Exam Vital Signs Vital Signs Date Time Temp Pulse Resp B/P Pulse Ox O2 Delivery O2 Flow Rate FiO2 07/05/16 06:30 77 16 150/95 96 Room Air 07/05/16 03:37 76 16 137/87 97 Room Air 07/04/16 22:26 98.2 74 18 163/98 100 Room Air Physical Exam GENERAL: This is a well-nourished, well-developed patient, in no apparent distress. SKIN: open wound noted on the right leg with mild discharge HEAD: Atraumatic. Normocephalic. No temporal or scalp tenderness. EYES: Pupils equal round and reactive. Extraocular motions intact. No scleral icterus. No injection or drainage. ENT: Nose without bleeding, purulent drainage or septal hematoma. Throat without erythema, tonsillar hypertrophy or exudate. Uvula midline. Airway patent. NECK: Trachea midline. No JVD or lymphadenopathy. Supple, nontender, no meningeal signs. CARDIOVASCULAR: Regular rate and rhythm without murmurs, gallops, or rubs. RESPIRATORY: Clear to auscultation. Breath sounds equal bilaterally. No wheezes , rales, or rhonchi. GASTROINTESTINAL: Abdomen soft, non-tender, nondistended. No hepato-splenomegaly , or palpable masses. No guarding. MUSCULOSKELETAL: bilateral leg edema- worse on the right NEUROLOGICAL: Awake and alert. Cranial nerves II through XII intact. Motor and sensory grossly within normal limits. Five out of 5 muscle strength in all muscle groups. Normal speech. Laboratory Laboratory Tests Test 07/05/16 07/05/16 03:50 04:00 Urine Color YELLOW Urine Turbidity CLEAR Urine pH 6.0 Urine Specific [place] 1.033 Urine Protein TRACE Urine Glucose (UA) NEG Urine Ketones NEG Urine Occult Blood NEG Urine Nitrite NEG Urine Bilirubin NEG Urine Urobilinogen 2.0 Urine Leukocyte Esterase NEG Urine RBC 2 Urine WBC LESS THAN 1 Urine Calcium Oxalate Crystals OCC Urine Mucus FEW Microscopic Urinalysis Comment CULT NOT INDICATED White Blood Count 7.1 Red Blood Count 3.65 Hemoglobin 11.9 Hematocrit 34.6 Mean Corpuscular Volume 94.9 Mean Corpuscular Hemoglobin 32.5 Mean Corpuscular Hemoglobin 34.3 Concent Red Cell Distribution Width 14.4 Platelet Count 278 Mean Platelet Volume 7.3 Neutrophils (%) (Auto) 56.3 Lymphocytes (%) (Auto) 28.1 Monocytes (%) (Auto) 12.3 Eosinophils (%) (Auto) 2.4 Basophils (%) (Auto) 0.9 Neutrophils # (Auto) 4.0 Lymphocytes # (Auto) 2.0 Monocytes # (Auto) 0.9 Eosinophils # (Auto) 0.2 Basophils # (Auto) 0.1 CBC Comment DIFF FINAL Differential Comment Sodium Level 143 Potassium Level 4.5 Chloride Level 109 Carbon Dioxide Level 27.3 Anion Gap 7 Blood Urea Nitrogen 17 Creatinine 0.88 Estimat Glomerular Filtration 95 Rate Random Glucose 87 Calcium Level 8.7 C-Reactive Protein 0.36 Date/Time Procedure Status Source Growth 07/05/16 03:50 Gram Stain Received Wound Leg Pending 07/05/16 03:50 Wound Culture Received Wound Leg Pending Result Diagram: 07/05/1639907/05/16399 Imaging Last Impressions Lower Extremity Ultrasound 07/05/16347 Signed Impressions: Service Date/Time: Tuesday, July 05, 2016 05:18 - CONCLUSION: 1. Limited study but no definite deep venous thrombosis in the lower extremities. 2. Enlarged lymph nodes in each groin bilaterally. Serjio Bob MD Assessment and Plan Assessment and Plan A/P -cellulitis of the lower extremities with an open wound on the right leg continue with IV antibiotic- obtain the wound culture- check the soft tissue sonogram of the right leg- keep the legs elevated consult wound care. check albumin level . venous doppler negative for DVT. -MS; consult PT -homeless situation; consult case management -DVT prophylaxis with subq lovenox Discussed Condition With ER physician and the patient. Physician Certification 2 Midnight Certification Type: Admission for Inpatient Services Order for Inpatient Services The services are ordered in accordance with Medicare regulations or non- Medicare payer requirements, as applicable. In the case of services not specified as inpatient-only, they are appropriately provided as inpatient services in accordance with the 2-midnight benchmark. Estimated LOS (days): 2 days is the estimated time the patient will need to remain in the hospital, assuming treatment plan goals are met and no additional complications. Post-Hospital Plan: Not yet determined Keli Johnson MD Jul 05, 2016 07:52
--- NOTE | 2016-07-05 09:03 | RADRPT ---
EXAM DATE/TIME: 07/05/2016 08:18 [place] COMPARISON: No previous studies available for comparison. INDICATIONS : Right lower leg abscess. MEDICAL HISTORY : Multiple sclerosis. Substance abuse. Attempted suicide. SURGICAL HISTORY : None. ENCOUNTER: Initial ACUITY: 1 month PAIN SCORE: 0/10 LOCATION: Right leg. AREA EVALUATED: Right lower leg. FINDINGS: There is apparently a visible wound in the right midcalf region. Ultrasound of this area reveals a le ss than 2 cm heterogeneous hypoechoic process in the superficial subcutaneous tissues which may be an area of phlegmonous fluid. CONCLUSION: Small superficial subcutaneous collection Raphael Salas MD on July 05, 2016 at 8:59 Board Certified Radiologist. This report was verified electronically.
[2016-07-05] MEDS: CLINDAMYCIN INJ 600 MG in SODIUM CHLORIDE 0.9% INJ 100 ML IV SCH ×3 (09:50→21:59)
[2016-07-05] MEDS: ENOXAPARIN SODIUM 40 MG/0.4 ML SYRINGE SQ SCH (09:50)
[2016-07-05] MEDS ORDERED: CLINDAMYCIN 600 MG/NS 100 ML IV SCH ×2 (10:00)
[2016-07-05] MEDS: ACETAMINOPHEN/HYDROcodone 325 MG/5 MG TAB PO PRN (20:01)
[2016-07-06] VITALS: BP 128/67; PULSE 96; RESP 22; TEMP 98.5; O2SAT 97
[2016-07-06] MEDS: ACETAMINOPHEN/HYDROcodone 325 MG/5 MG TAB PO PRN ×5 (00:18→20:58)
[2016-07-06 04:00] VITALS: BP 121/70; PULSE 78; RESP 18; TEMP 98.2; O2SAT 96
[2016-07-06] MEDS: CLINDAMYCIN INJ 600 MG in SODIUM CHLORIDE 0.9% INJ 100 ML IV SCH ×4 (04:06→20:58)
[2016-07-06 08:33] VITALS: BP 134/64; PULSE 68; RESP 18; TEMP 98.2; O2SAT 98
[2016-07-06] MEDS: ENOXAPARIN SODIUM 40 MG/0.4 ML SYRINGE SQ SCH (08:33)
--- NOTE | 2016-07-06 10:34 | HHI.PR ---
Subjective Remarks resting comfortably with no distress. remains afebrile. pain is fairly controlled. Objective Vitals Vital Signs Date Time Temp Pulse Resp B/P Pulse Ox O2 Delivery O2 Flow Rate FiO2 07/06/16 08:33 98.2 68 18 134/64 98 07/06/16 04:00 98.2 78 18 121/70 96 07/06/16 00:00 98.5 96 22 128/67 97 07/05/16 20:00 98.7 94 20 125/73 98 07/05/16 16:04 99.0 94 18 149/69 96 07/05/16 14:15 98.5 77 18 141/72 97 07/05/16 12:30 97.8 78 16 136/88 96 Room Air 07/05/16 10:34 73 16 132/88 97 Room Air I/O 07/05/16 07/05/16 07/05/16 07/06/16 07/06/16 07/06/16 07:00 15:00 23:00 07:00 15:00 23:00 Intake Total 240 ml 580 ml Output Total 900 ml 2700 ml Balance -660 ml -2120 ml Intake Oral 240 ml 480 ml IV Total 100 ml Output Urine Total 900 ml 2700 ml # Bowel Movements 0 0 Result Diagram: 07/05/16 0400 07/05/16 0400 Imaging Last Impressions Lower Extremity Ultrasound 07/05/16 0348 Signed Impressions: Service Date/Time: Tuesday, July 05, 2016 05:18 - CONCLUSION: 1. Limited study but no definite deep venous thrombosis in the lower extremities. 2. Enlarged lymph nodes in each groin bilaterally. Serjio Bob MD Objective Remarks GENERAL: This is a well-nourished, well-developed patient, in no apparent distress. CARDIOVASCULAR: Regular rate and regular rhythm without murmurs, gallops, or rubs. RESPIRATORY: Clear to auscultation. Breath sounds equal bilaterally. No wheezes , rales, or rhonchi. GASTROINTESTINAL: Abdomen soft, non-tender, nondistended. Normal, active bowel sounds MUSCULOSKELETAL: Extremities without clubbing, cyanosis, or edema. NEURO: Alert & Oriented x4 to person, place, time, situation. Moves all ext x4 Medications and IVs Current Medications Cefazolin Sodium/ Dextrose 50 ml @ 100 mls/hr ONCE ONCE IV Last administered on 07/05/16 04:06; Start 07/05/16 at 04:00; Stop 07/05/16 at 04:29; Status DC Clindamycin Phosphate/Sodium Chloride (Cleocin Inj/NS Inj) 104 ml @ 208 mls/hr ONCE ONCE IV Last administered on 07/05/16 04:45; Start 07/05/16 at 04:00; Stop 07/05/16 at 04:29; Status DC Lorazepam 1 mg 1 mg ONCE ONCE IV PUSH Last administered on 07/05/16 05:37; Start 07/05/16 at 05:30; Stop 07/05/16 at 05:35; Status DC Clindamycin Phosphate/Sodium Chloride (Cleocin Inj/NS Inj) 104 ml @ 208 mls/hr Q6H IV Last administered on 07/06/16 08:33; Start 07/05/16 at 10:00 Acetaminophen (Tylenol) 650 mg Q4H PRN PO FEVER/ PAIN 1-3; Start 07/05/16 at 07 :45 Ondansetron HCl (Zofran Inj) 4 mg Q8HR PRN IV PUSH NAUSEA; Start 07/05/16 at 07 :45 Enoxaparin Sodium 40 mg 40 mg Q24H SQ Last administered on 07/06/16 08:33; Start 07/05/16 at 09:00 Clindamycin Phosphate/Sodium Chloride (Cleocin Inj/NS Inj) 104 ml @ 208 mls/hr Q6H IV ; Start 07/05/16 at 10:00; Status Cancel Acetaminophen/ Hydrocodone Bitart ([place] 5-325 Mg) 1 tab Q4H PRN PO PAIN 4-7; Start 07/05/16 at 18:30 Acetaminophen/ Hydrocodone Bitart ([place] 5-325 Mg) 2 tab Q4H PRN PO PAIN 8-10 Last administered on 07/06/16 08:34; Start 07/05/16 at 18:30 A/P Assessment and Plan -cellulitis of the lower extremities with an open wound on the right leg continue with IV antibiotic- follow the wound culture- keep the legs elevated soft tissue sonogram of the right leg with small superficial fluid collection. venous doppler negative for DVT. wound care consult appreciated. -groin lymphadenopathy- suspect due to cellulitis of the leg- will need f/u in a few weeks after the antibiotic therapy to ensure the resolution of lymphadenopathy. -MS; consulted PT -homeless situation; consult case management -DVT prophylaxis with subq Keil Montaño MD Jul 06, 2016 10:34
[2016-07-06 12:22] VITALS: BP 141/72; PULSE 68; RESP 18; TEMP 98.2; O2SAT 100
[2016-07-06 16:13] VITALS: BP 122/68; PULSE 82; RESP 18; TEMP 98.2; O2SAT 100
[2016-07-06 20:00] VITALS: BP 137/66; PULSE 80; RESP 18; TEMP 98.5; O2SAT 95
[2016-07-07] VITALS (7 sets, daily range): BP systolic 120–170; BP diastolic 61–87; PULSE 67–84; RESP 12–20; TEMP 98–98.6; O2SAT 94–100
[2016-07-07] MEDS: ACETAMINOPHEN/HYDROcodone 325 MG/5 MG TAB PO PRN ×5 (00:12→21:54)
[2016-07-07] MEDS: CLINDAMYCIN INJ 600 MG in SODIUM CHLORIDE 0.9% INJ 100 ML IV SCH ×2 (04:22→09:00)
[2016-07-07] MEDS: ENOXAPARIN SODIUM 40 MG/0.4 ML SYRINGE SQ SCH (08:00)
[2016-07-07] MEDS ORDERED: VANCOMYCIN INJ 1,000 MG in SODIUM CHLOR 0.9% 250 ML INJ 250 ML IV ONE (10:15)
[2016-07-07] MEDS ORDERED: Vancomycin Consult Pharmacy 1 EA OTHER SCH (10:15)
--- NOTE | 2016-07-07 10:15 | HHI.PR ---
Subjective Remarks resting comfortably with no distress. afebrile. pain is controlled. Objective Vitals Vital Signs Date Time Temp Pulse Resp B/P Pulse Ox O2 Delivery O2 Flow Rate FiO2 07/07/16 08:42 98.3 75 14 150/87 100 07/07/16 08:00 98.3 67 16 132/73 100 07/07/16 04:00 98.0 80 17 137/63 95 07/07/16 00:00 98.4 81 17 120/61 99 07/06/16 20:00 98.5 80 18 137/66 95 07/06/16 16:13 98.2 82 18 122/68 100 07/06/16 12:22 98.2 68 18 141/72 100 I/O 07/06/16 07/06/16 07/06/16 07/07/16 07/07/16 07/07/16 07:00 15:00 23:00 07:00 15:00 23:00 Intake Total 580 ml 1000 ml 680 ml Output Total 2700 ml 940 ml 200 ml 1400 ml Balance -2120 ml 60 ml -200 ml -720 ml Intake Oral 480 ml 1000 ml 480 ml IV Total 100 ml 200 ml Output Urine Total 2700 ml 940 ml 200 ml 1400 ml # Bowel Movements 0 0 Result Diagram: 07/05/16 0400 07/05/16 040 Imaging Last Impressions Lower Extremity Ultrasound 07/05/16 0348 Signed Impressions: Service Date/Time: Tuesday, July 05, 2016 05:18 - CONCLUSION: 1. Limited study but no definite deep venous thrombosis in the lower extremities. 2. Enlarged lymph nodes in each groin bilaterally. Serjio Bob MD Objective Remarks GENERAL: This is a well-nourished, well-developed patient, in no apparent distress. CARDIOVASCULAR: Regular rate and regular rhythm without murmurs, gallops, or rubs. RESPIRATORY: Clear to auscultation. Breath sounds equal bilaterally. No wheezes , rales, or rhonchi. GASTROINTESTINAL: Abdomen soft, non-tender, nondistended. Normal, active bowel sounds MUSCULOSKELETAL: Extremities without clubbing, cyanosis, or edema. NEURO: Alert & Oriented x4 to person, place, time, situation. Moves all ext x4 Medications and IVs Current Medications Cefazolin Sodium/ Dextrose 50 ml @ 100 mls/hr ONCE ONCE IV Last administered on 07/05/16 04:06; Start 07/05/16 at 04:00; Stop 07/05/16 at 04:29; Status DC Clindamycin Phosphate/Sodium Chloride (Cleocin Inj/NS Inj) 104 ml @ 208 mls/hr ONCE ONCE IV Last administered on 07/05/16 04:45; Start 07/05/16 at 04:00; Stop 07/05/16 at 04:29; Status DC Lorazepam 1 mg 1 mg ONCE ONCE IV PUSH Last administered on 07/05/16 05:37; Start 07/05/16 at 05:30; Stop 07/05/16 at 05:35; Status DC Clindamycin Phosphate/Sodium Chloride (Cleocin Inj/NS Inj) 104 ml @ 208 mls/hr Q6H IV Last administered on 07/07/16 09:00; Start 07/05/16 at 10:00 Acetaminophen (Tylenol) 650 mg Q4H PRN PO FEVER/ PAIN 1-3; Start 07/05/16 at 07 :45 Ondansetron HCl (Zofran Inj) 4 mg Q8HR PRN IV PUSH NAUSEA; Start 07/05/16 at 07 :45 Enoxaparin Sodium 40 mg 40 mg Q24H SQ Last administered on 07/07/16 08:00; Start 07/05/16 at 09:00 Clindamycin Phosphate/Sodium Chloride (Cleocin Inj/NS Inj) 104 ml @ 208 mls/hr Q6H IV ; Start 07/05/16 at 10:00; Status Cancel Acetaminophen/ Hydrocodone Bitart ([place] 5-325 Mg) 1 tab Q4H PRN PO PAIN 4-7; Start 07/05/16 at 18:30 Acetaminophen/ Hydrocodone Bitart ([place] 5-325 Mg) 2 tab Q4H PRN PO PAIN 8-10 Last administered on 07/07/16 08:01; Start 07/05/16 at 18:30 A/P Assessment and Plan -cellulitis of the lower extremities with an open wound on the right leg wound culture with MRSA- dc Clinda and start IV Vanco- pharmacy consulted for dosing- keep the legs elevated soft tissue sonogram of the right leg with small superficial fluid collection. venous doppler negative for DVT. wound care consult appreciated. -groin lymphadenopathy- suspect due to cellulitis of the leg- will need f/u in a few weeks after the antibiotic therapy to ensure the resolution of lymphadenopathy. -MS; consulted PT -homeless situation; consulted case management -DVT prophylaxis with subq loveKeli Buitrago MD Jul 07, 2016 10:15
[2016-07-07] MEDS: VANCOMYCIN INJ 1,500 MG in SODIUM CHLORID 0.9% 500 ML INJ 500 ML IV SCH (12:28)
[2016-07-08] VITALS: BP 151/78; PULSE 73; RESP 20; TEMP 98.1; O2SAT 97
[2016-07-08] MEDS: VANCOMYCIN INJ 1,500 MG in SODIUM CHLORID 0.9% 500 ML INJ 500 ML IV SCH ×2 (00:33→12:14)
[2016-07-08 04:00] VITALS: BP 144/81; PULSE 78; RESP 20; TEMP 98.6; O2SAT 98
[2016-07-08] MEDS: ACETAMINOPHEN/HYDROcodone 325 MG/5 MG TAB PO PRN ×4 (05:05→20:53)
[2016-07-08 08:00] VITALS: BP 143/75; PULSE 83; RESP 16; TEMP 97.3; O2SAT 100
[2016-07-08] MEDS: ENOXAPARIN SODIUM 40 MG/0.4 ML SYRINGE SQ SCH (08:46)
[2016-07-08] MEDS ORDERED: FUROSEMIDE 20 MG/2 ML VIAL IV PUSH ONE (09:00)
--- NOTE | 2016-07-08 09:02 | HHI.PR ---
Subjective Remarks resting comfortably with no distress. no fever. denies pain. Objective Vitals Vital Signs Date Time Temp Pulse Resp B/P Pulse Ox O2 Delivery O2 Flow Rate FiO2 07/08/16 04:00 98.6 78 20 144/81 98 07/08/16 00:00 98.1 73 20 151/78 97 07/07/16 20:00 98.6 84 20 170/84 94 07/07/16 16:00 98.4 80 16 132/72 98 07/07/16 11:44 98.4 73 12 137/85 100 I/O 07/07/16 07/07/16 07/07/16 07/08/16 07/08/16 07/08/16 07:00 15:00 23:00 07:00 15:00 23:00 Intake Total 680 ml 960 ml 720 ml 480 ml Output Total 1400 ml 650 ml 2100 ml Balance -720 ml 960 ml 70 ml -1620 ml Intake Oral 480 ml 960 ml 720 ml 480 ml IV Total 200 ml Output Urine Total 1400 ml 650 ml 2100 ml # Voids 4 # Bowel Movements 0 Result Diagram: 07/05/16 0400 07/08/16 0420 Imaging Last Impressions Lower Extremity Ultrasound 07/05/16 0348 Signed Impressions: Service Date/Time: Tuesday, July 05, 2016 05:18 - CONCLUSION: 1. Limited study but no definite deep venous thrombosis in the lower extremities. 2. Enlarged lymph nodes in each groin bilaterally. Serjio Bob MD Objective Remarks GENERAL: This is a well-nourished, well-developed patient, in no apparent distress. CARDIOVASCULAR: Regular rate and regular rhythm without murmurs, gallops, or rubs. RESPIRATORY: Clear to auscultation. Breath sounds equal bilaterally. No wheezes , rales, or rhonchi. GASTROINTESTINAL: Abdomen soft, non-tender, nondistended. Normal, active bowel sounds MUSCULOSKELETAL: Extremities without clubbing, cyanosis, or edema. NEURO: Alert & Oriented x4 to person, place, time, situation. Moves all ext x4 Medications and IVs Current Medications Cefazolin Sodium/ Dextrose 50 ml @ 100 mls/hr ONCE ONCE IV Last administered on 07/05/16t 04:06; Start 07/05/16 at 04:00; Stop 07/05/16 at 04:29; Status DC Clindamycin Phosphate/Sodium Chloride (Cleocin Inj/NS Inj) 104 ml @ 208 mls/hr ONCE ONCE IV Last administered on 07/05/16 04:45; Start 07/05/16 at 04:00; Stop 07/05/16 at 04:29; Status DC Lorazepam 1 mg 1 mg ONCE ONCE IV PUSH Last administered on 07/05/16 05:37; Start 07/05/16 at 05:30; Stop 07/05/16 at 05:35; Status DC Clindamycin Phosphate/Sodium Chloride (Cleocin Inj/NS Inj) 104 ml @ 208 mls/hr Q6H IV Last administered on 07/07/16 09:00; Start 07/05/16 at 10:00; Stop 03/13 at 10:13; Status DC Acetaminophen (Tylenol) 650 mg Q4H PRN PO FEVER/ PAIN 1-3; Start 07/05/16 at 07 :45 Ondansetron HCl (Zofran Inj) 4 mg Q8HR PRN IV PUSH NAUSEA; Start 07/05/16 at 07 :45 Enoxaparin Sodium 40 mg 40 mg Q24H SQ Last administered on 07/08/16 08:46; Start 07/05/16 at 09:00 Clindamycin Phosphate/Sodium Chloride (Cleocin Inj/NS Inj) 104 ml @ 208 mls/hr Q6H IV ; Start 07/05/16 at 10:00; Status Cancel Acetaminophen/ Hydrocodone Bitart ([place] 5-325 Mg) 1 tab Q4H PRN PO PAIN 4-7; Start 07/05/16 at 18:30 Acetaminophen/ Hydrocodone Bitart 2 tab 2 tab Q4H PRN PO PAIN 8-10 Last administered on 07/08/16 08:46; Start 07/05/16 at 18:30 Vancomycin HCl 1000 mg/Sodium Chloride 250 ml @ 250 mls/hr ONCE ONCE IV ; Start 07/07/16 at 10:15; Stop 07/07/16 at 11:14; Status Cancel Pharmacy Profile Note 0 ml @ 0 mls/hr UNSCH OTHER ; Start 07/07/16 at 10:15 Vancomycin HCl/ Sodium Chloride (Vancomycin Inj/ NS 500 ml Inj) 515 ml @ 250 mls/hr Q12H IV Last administered on 4/13/17at 00:33; Start 07/07/16 at 12:00 Miscellaneous Information SPECIFIC LAB TO BE DRAWN:VANCOMYCIN TROUGH DATE TO... ONCE ONCE .XX ; Start 07/09/16 at 11:45; Stop 07/09/16 at 11:46 A/P Assessment and Plan -cellulitis of the lower extremities with an open wound on the right leg- improving slowly. wound culture with MRSA-continue IV Vanco- pharmacy consulted for dosing- keep the legs elevated soft tissue sonogram of the right leg with small superficial fluid collection. venous doppler negative for DVT. wound care follow-up appreciated. -groin lymphadenopathy- suspect due to cellulitis of the leg- will need f/u in 2-3 weeks after the antibiotic therapy to ensure the resolution of lymphadenopathy. -MS; consulted PT -homeless situation; consulted case management -DVT prophylaxis with subq lovenox Discharge Planning patient is homeless- previously d/w the licensed insurance agent; dc planning early next week to ensure further improvement of the open wound/ cellulitis of the right leg. Keli Johnson MD Jul 08, 2016 09:02
[2016-07-08 12:00] VITALS: BP 130/65; PULSE 84; RESP 18; TEMP 98.2; O2SAT 97
[2016-07-08 16:00] VITALS: BP 122/64; PULSE 89; RESP 18; TEMP 97.4; O2SAT 97
[2016-07-08 20:00] VITALS: BP 157/86; PULSE 71; RESP 18; TEMP 97.8; O2SAT 98
[2016-07-09] VITALS: BP 116/69; PULSE 78; RESP 18; TEMP 98.1; O2SAT 96
[2016-07-09] MEDS: VANCOMYCIN INJ 1,500 MG in SODIUM CHLORID 0.9% 500 ML INJ 500 ML IV SCH ×2 (00:48→11:43)
[2016-07-09] MEDS: ACETAMINOPHEN/HYDROcodone 325 MG/5 MG TAB PO PRN ×2 (00:50→08:57)
[2016-07-09 04:00] VITALS: BP 120/73; PULSE 74; RESP 18; TEMP 98.3; O2SAT 98
[2016-07-09 08:03] VITALS: BP 110/66; PULSE 85; RESP 19; TEMP 98.2; O2SAT 98
[2016-07-09] MEDS: ENOXAPARIN SODIUM 40 MG/0.4 ML SYRINGE SQ SCH (08:57)
[2016-07-09] MEDS ORDERED: BACT800T5 PO (11:21)
--- NOTE | 2016-07-09 11:21 | HHI.PR ---
Subjective Remarks resting comfortably with no distress. no fever. no new complaints. Objective Vitals Vital Signs Date Time Temp Pulse Resp B/P Pulse Ox O2 Delivery O2 Flow Rate FiO2 07/09/16 08:03 98.2 85 19 110/66 98 07/09/16 04:00 98.3 74 18 120/73 98 07/09/16 00:00 98.1 78 18 116/69 96 07/08/16 20:00 97.8 71 18 157/86 98 07/08/16 16:00 97.4 89 18 122/64 97 07/08/16 12:00 98.2 84 18 130/65 97 I/O 07/08/16 07/08/16 07/08/16 07/09/16 07/09/16 07/09/16 07:00 15:00 23:00 07:00 15:00 23:00 Intake Total 480 ml 960 ml 480 ml 240 ml Output Total 2100 ml 2500 ml 500 ml Balance -1620 ml -1540 ml 480 ml -260 ml Intake Oral 480 ml 960 ml 480 ml 240 ml Output Urine Total 2100 ml 2500 ml 500 ml # Voids 1 1 # Bowel Movements 1 1 0 Result Diagram: 07/05/16 0400 07/08/16 0420 Imaging Last Impressions Lower Extremity Ultrasound 07/05/16 0348 Signed Impressions: Service Date/Time: Tuesday, July 05, 2016 05:18 - CONCLUSION: 1. Limited study but no definite deep venous thrombosis in the lower extremities. 2. Enlarged lymph nodes in each groin bilaterally. Serjio Bob MD Objective Remarks GENERAL: This is a well-nourished, well-developed patient, in no apparent distress. CARDIOVASCULAR: Regular rate and regular rhythm without murmurs, gallops, or rubs. RESPIRATORY: Clear to auscultation. Breath sounds equal bilaterally. No wheezes , rales, or rhonchi. GASTROINTESTINAL: Abdomen soft, non-tender, nondistended. Normal, active bowel sounds MUSCULOSKELETAL: Extremities without clubbing, cyanosis, or edema. NEURO: Alert & Oriented x4 to person, place, time, situation. Moves all ext x4 Procedures none Medications and IVs Current Medications Cefazolin Sodium/ Dextrose 50 ml @ 100 mls/hr ONCE ONCE IV Last administered on 07/05/16t 04:06; Start 07/05/16 at 04:00; Stop 07/05/16 at 04:29; Status DC Clindamycin Phosphate/Sodium Chloride (Cleocin Inj/NS Inj) 104 ml @ 208 mls/hr ONCE ONCE IV Last administered on 07/05/16 04:45; Start 07/05/16 at 04:00; Stop 07/05/16 at 04:29; Status DC Lorazepam 1 mg 1 mg ONCE ONCE IV PUSH Last administered on 07/05/16 05:37; Start 07/05/16 at 05:30; Stop 07/05/16 at 05:35; Status DC Clindamycin Phosphate/Sodium Chloride (Cleocin Inj/NS Inj) 104 ml @ 208 mls/hr Q6H IV Last administered on 07/07/16 09:00; Start 07/05/16 at 10:00; Stop 03/13 at 10:13; Status DC Acetaminophen (Tylenol) 650 mg Q4H PRN PO FEVER/ PAIN 1-3; Start 07/05/16 at 07 :45 Ondansetron HCl (Zofran Inj) 4 mg Q8HR PRN IV PUSH NAUSEA; Start 07/05/16 at 07 :45 Enoxaparin Sodium 40 mg 40 mg Q24H SQ Last administered on 07/09/16 08:57; Start 07/05/16 at 09:00 Clindamycin Phosphate/Sodium Chloride (Cleocin Inj/NS Inj) 104 ml @ 208 mls/hr Q6H IV ; Start 07/05/16 at 10:00; Status Cancel Acetaminophen/ Hydrocodone Bitart ([place] 5-325 Mg) 1 tab Q4H PRN PO PAIN 4-7 Last administered on 07/09/16 08:57; Start 07/05/16 at 18:30 Acetaminophen/ Hydrocodone Bitart 2 tab 2 tab Q4H PRN PO PAIN 8-10 Last administered on 07/09/16 00:50; Start 07/05/16 at 18:30 Vancomycin HCl 1000 mg/Sodium Chloride 250 ml @ 250 mls/hr ONCE ONCE IV ; Start 07/07/16 at 10:15; Stop 07/07/16 at 11:14; Status Cancel Pharmacy Profile Note 0 ml @ 0 mls/hr UNSCH OTHER ; Start 07/07/16 at 10:15 Vancomycin HCl/ Sodium Chloride (Vancomycin Inj/ NS 500 ml Inj) 515 ml @ 250 mls/hr Q12H IV Last administered on 07/09/16 00:48; Start 07/07/16 at 12:00 Miscellaneous Information SPECIFIC LAB TO BE DRAWN:VANCOMYCIN TROUGH DATE TO... ONCE ONCE .XX ; Start 07/09/16 at 11:45; Stop 07/09/16 at 11:46 Furosemide (Lasix Inj) 20 mg ONCE ONCE IV PUSH Last administered on 07/08/16 09:49; Start 07/08/16 at 09:00; Stop 07/08/16 at 09:22; Status DC A/P Assessment and Plan -cellulitis of the lower extremities with an open wound on the right leg- improved. wound culture with MRSA-on IV Vanco- pharmacy consulted for dosing- will switch to po abx upon discharge. keep the legs elevated soft tissue sonogram of the right leg with small superficial fluid collection. venous doppler negative for DVT. wound care follow-up appreciated. -groin lymphadenopathy- suspect due to cellulitis of the leg- will need f/u in 2-3 weeks after the antibiotic therapy to ensure the resolution of lymphadenopathy. this was d/w the patient. -MS; consulted PT -homeless situation; consulted case management -DVT prophylaxis with subq lovenox Discharge Planning discharge today if outpatient wound care can be arranged. f/u; pcp. d/w the patient and case management. time spent 32 min. Keli Johnson MD Jul 09, 2016 11:21
--- NOTE | 2016-07-09 11:22 | HHI.DS ---
Discharge Summary Admission Date Jul 05, 2016 at 07:21 Discharge Date: Jul 09, 2016 Admitting Diagnosis bilateral inguinal lymphadenopathy, leg cellulitis with abscess R (1) Bilateral lower extremity edema ICD Code: R60.0 Diagnosis: Principal (2) Cellulitis and abscess of leg ICD Code: L02.419 Diagnosis: Principal Procedures none Brief History - From Admission patient is a 40 y/o male, homeless, poor historian, with reported history of MS who presented to ER with swelling of both legs. he was seen in ER a few times recently for the same reason. information is limited since the patient is not a good historian. however reports the edema in the legs for the past month. he denies any fever or chills. he was resting comfortably at the time of my evaluation. CBC/BMP: 07/05/16 0400 07/08/16 0420 Imaging Last Impressions Lower Extremity Ultrasound 07/05/16 0348 Signed Impressions: Service Date/Time: Tuesday, July 05, 2016 05:18 - CONCLUSION: 1. Limited study but no definite deep venous thrombosis in the lower extremities. 2. Enlarged lymph nodes in each groin bilaterally. Serjio Bob MD PE at Discharge GENERAL: This is a well-nourished, well-developed patient, in no apparent distress. CARDIOVASCULAR: Regular rate and regular rhythm without murmurs, gallops, or rubs. RESPIRATORY: Clear to auscultation. Breath sounds equal bilaterally. No wheezes , rales, or rhonchi. GASTROINTESTINAL: Abdomen soft, non-tender, nondistended. Normal, active bowel sounds MUSCULOSKELETAL: Extremities without clubbing, cyanosis, or edema. NEURO: Alert & Oriented x4 to person, place, time, situation. Moves all ext x4 Hospital Course -cellulitis of the lower extremities with an open wound on the right leg- improved. wound culture with MRSA-on IV Vanco- pharmacy consulted for dosing- will switch to po abx upon discharge. keep the legs elevated soft tissue sonogram of the right leg with small superficial fluid collection. venous doppler negative for DVT. wound care follow-up appreciated. -groin lymphadenopathy- suspect due to cellulitis of the leg- will need f/u in 2-3 weeks after the antibiotic therapy to ensure the resolution of lymphadenopathy. this was d/w the patient. -MS; consulted PT -homeless situation; consulted case management -DVT prophylaxis with subq lovenox Pt Condition on Discharge: Good Discharge Disposition: Discharge Home Discharge Time: > 30 minutes Discharge Instructions DIET: Follow Instructions for: As Tolerated, No Restrictions Activities you can perform: Regular-No Restrictions Follow up Referrals: PCP Follow-up New Medications: Sulfamethoxazole-Trimethoprim (Bactrim DS) 800-160 Mg Tab 1 TAB PO BID Infection #14 Ref 0 TAB Keli Johnson MD Jul 09, 2016 11:22
--- NOTE | 2016-07-09 11:22 | HHI.DCPOC ---
Discharge Care Plan Diagnosis: (1) Cellulitis and abscess of leg Your Health Problems Are: Inflammation Swelling Leg Swelling Goals to Promote Your Health * To prevent worsening of your condition and complications * To maintain your health at the optimal level Directions to Meet Your Goals Take your medications as prescribed Follow your dietary instruction Follow activity as directed Keep your appointments as scheduled Take your immunizations and boosters as scheduled If your symptoms worsen call your PCP, if no PCP go to Urgent Care Center or Emergency Room Smoking is Dangerous to Your Health. Avoid second hand smoke Call the 24-hour hour crisis hotline for domestic abuse at Keli Johnson MD Jul 09, 2016 11:22
[2016-07-09] MEDS ORDERED: PHARMACY ORDERED LAB ONE (11:45)
[2016-07-09 12:03] VITALS: BP 115/70; PULSE 87; RESP 19; TEMP 98.5; O2SAT 98
[2016-07-09 12:09] LABS: BICARBONATE 31.8 MEQ/L (21.0-32.0); POTASSIUM 4.6 MEQ/L (3.5-5.1)
[2016-07-09 16:03] VITALS: BP 125/74; PULSE 95; RESP 19; TEMP 98.6; O2SAT 94
== END 2016-07-09 19:05 | disposition home or self-care (01) | DRG 603 ==
LOC: NEPE 22:02 → NEDA 07-05 07:21 → N04A 07-05 14:04
PROVIDERS: ADMIT Internal Medicine; ATTEND Internal Medicine
DX: L03.115 Cellulitis of right lower limb (principal); G35 Multiple sclerosis; L02.415 Cutaneous abscess of right lower limb; B95.62 Methicillin resistant Staphylococcus aureus infection as the cause of diseases classified elsewhere; R60.0 Localized edema; Z59.0 Homelessness; R32 Unspecified urinary incontinence; F17.210 Nicotine dependence, cigarettes, uncomplicated; Z99.3 Dependence on wheelchair; F12.90 Cannabis use, unspecified, uncomplicated; R59.0 Localized enlarged lymph nodes
CPT/HCPCS: 76882; 80048; 80202; 81001; 82040; 82565; 85025; 86140; 86403; 87070; 87147; 87186; 87205; 93970; 96365; 96367; 96375; J0690; J1650; J1940; J2060; J3370; J7040

== ENCOUNTER 2016-07-18 02:32 | Emergency (ER) | payer OTHER ==
[~2016-07-18] VITALS: Ht 195.6 cm; Wt 80.0 kg
[~2016-07-18 02:32] MED LIST changes: +BACT800T5 PO; -COPA20KI SQ
[2016-07-18 03:17] VITALS: BP 142/64; PULSE 74; RESP 18; O2SAT 100
--- NOTE | 2016-07-18 03:33 | PD ---
HPI Chief Complaint: Back/ Neck Pain or Injury Time Seen by Provider: 03:09 Travel History International Travel<30 days: No Contact w/Intl Traveler<30days: No Traveled to known affect area: No History of Present Illness HPI This patient is a local homeless person. When I went in the room to evaluate him, he was sound asleep. Upon waking him up, he gets irate and started swearing at me. I'm trying to ascertain a chief complaint but it's very challenging. He just wants to sleep in the bed. When I wake him up to talk to him he swears at me and gets mad. I'm not sure why he is really here. He says he has no where else to go. He was recently here for leg cellulitis but says that's improved. He denies recent fever or injury. 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 No mass or crepitus. Thyroid without enlargement, tenderness, or mass. GASTROINTESTINAL: Abdomen soft, non-tender, nondistended. Positive bowel sounds. No hepato-splenomegaly, or palpable masses. No guarding. CARDIOVASCULAR: Regular rate and rhythm without murmur. Extremities showed some mild edema. There is a right thigh shallow healing wound Data Data Last Documented VS Vital Signs Date Time Temp Pulse Resp B/P Pulse Ox O2 Delivery O2 Flow Rate FiO2 07/18/16 03:17 74 18 142/64 100 Room Air MDM Medical Decision Making Medical Screen Exam Complete: Yes Emergency Medical Condition: Yes Medical Record Reviewed: Yes Differential Diagnosis Malingering, homeless, tired and belligerent Narrative Course I have reviewed the patient's electronic medical record. Reviewed her discharge summary from earlier this month when he was admitted for cellulitis Patient has normal vital signs He does not voice any specific complaint but seems to just want to sleep and when I wake him up he gets mad and repeatedly swears at me. I don't see any indication for emergent studies based on that. Going to discharge him and recommend primary care follow-up Diagnosis Primary Impression: Malingering Additional Impression: Homelessness Additional Instructions: The patient was advised to follow up with their physician and return if they worsen. Med/Other Pt SpecificInfo: Other Disposition: DISCHARGE HOME Condition: Stable Adrien Barbosa MD Jul 18, 2016 03:33
== END 2016-07-18 05:46 | disposition home or self-care (01) ==
LOC: NEPE 02:32
DX: R45.4 Irritability and anger (principal); G35 Multiple sclerosis; F17.210 Nicotine dependence, cigarettes, uncomplicated; F12.90 Cannabis use, unspecified, uncomplicated; Z76.5 Malingerer [conscious simulation]; Z59.0 Homelessness
CPT/HCPCS: 99283

== ENCOUNTER 2016-07-29 03:41 | Emergency (ER) | payer OTHER ==
[~2016-07-29] VITALS: Ht 198.1 cm; Wt 115.0 kg
[2016-07-29 03:45] VITALS: BP 145/94; PULSE 69; RESP 14; TEMP 97.7; O2SAT 100
[2016-07-29 04:56] VITALS: BP 146/83; PULSE 64; RESP 20; O2SAT 97
--- NOTE | 2016-07-29 05:17 | PD ---
HPI . Right leg wound Chief Complaint: Edema Time Seen by Provider: 04:55 Travel History International Travel<30 days: No Contact w/Intl Traveler<30days: No Traveled to known affect area: No History of Present Illness HPI Patient is sleeping and refuses to talk. History is obtained by reviewing his records. This is a homeless man who is wheelchair bound because of multiple sclerosis who presents here frequently looking for a place to sleep. Someone called [facility] tonight. We're not sure who called or why they called. The only complaint that I been able to get from the patient is that he has a wound on his right leg. PFSH Past Medical History Diminished Hearing: No Musculoskeletal: Yes (back pain) Neurologic: Yes (multiple sclerosis) Tetanus Vaccination: Unknown Past Surgical History Surgical History: No Previous Surgery Social History Alcohol Use: No Tobacco Use: Yes (/2 PPD) Substance Use: Yes (marijuana occasionally) Allergies-Medications (Allergen,Severity, Reaction): Coded Allergies: *MDRO Multi-Drug Resistant Organism (Verified Adverse Reaction, Unknown, ) MRSA (leg)-07/05/16 & 07/20/16 Reported Meds & Prescriptions Reported Meds & Active Scripts Active No Active Prescriptions or Reported Medications Review of Systems ROS Limitations: Uncooperative, Refused Physical Exam Narrative GENERAL: Sleeping but arousable. No acute distress. SKIN: Warm and dry. He does have a wound on his right lower extremity which is almost healed. It does not appear infected. There is no purulent drainage. HEAD: Atraumatic. Normocephalic. EYES: Pupils equal and round. NECK: Trachea midline. Neck is supple. CARDIOVASCULAR: Regular rate and rhythm. Heart sounds are normal. RESPIRATORY: No accessory muscle use. Respirations are nonlabored. Breath sounds are full and equal and clear. MUSCULOSKELETAL: No obvious deformities. 2+ pretibial pitting edema NEUROLOGICAL: Asleep. No apparent focal neurological deficits. PSYCHIATRIC: Unable to assess. Data Data Last Documented VS Vital Signs Date Time Temp Pulse Resp B/P Pulse Ox O2 Delivery O2 Flow Rate FiO2 07/29/16 04:57 64 97 Room Air 07/29/16 04:56 20 146/83 07/29/16 03:45 97.7 MDM Medical Decision Making Medical Screen Exam Complete: Yes Emergency Medical Condition: Yes Medical Record Reviewed: Yes (I have reviewed his recent medical records. He does come quite frequently apparently looking for a place to sleep.) Differential Diagnosis My differential diagnosis includes but is not limited to localized wound infection, cellulitis, abscess Narrative Course This is a homeless man who presents to us via [facility] only complaint that I was able to elicit of a right leg wound. He is sleeping and unwilling to talk. He has a healing wound on his right lower extremity which does not appear infected. He will be discharged. He does have bilateral lower extremity edema but this is a chronic problem. Diagnosis Primary Impression: Bilateral lower extremity edema Scripts No Active Prescriptions or Reported Meds Disposition: 01 DISCHARGE HOME Condition: Stable Beverley Her MD July 29, 2016 05:17
== END 2016-07-29 06:27 | disposition home or self-care (01) ==
LOC: NEPE 03:41
DX: R60.0 Localized edema (principal); G35 Multiple sclerosis; F17.210 Nicotine dependence, cigarettes, uncomplicated; Z99.3 Dependence on wheelchair; Z59.0 Homelessness
CPT/HCPCS: 99283

== ENCOUNTER 2016-07-29 12:42 | Emergency (ER) | payer OTHER ==
[~2016-07-29] VITALS: Ht 198.1 cm; Wt 106.0 kg
[2016-07-29 12:54] VITALS: BP 136/79; PULSE 74; RESP 16; O2SAT 98
[2016-07-29] MEDS ORDERED: KETOROLAC TROMETHAMINE 30 MG/ML (IVP) VIAL IV PUSH ONE (13:00)
[2016-07-29] MEDS ORDERED: SODIUM CHLORIDE 0.9% FLUSH 10 ML FLUSH IVF PRN (13:00)
[2016-07-29 13:15] VITALS: BP 143/78; PULSE 74; RESP 16; O2SAT 98
[2016-07-29 13:30] LABS: AUTOMATED NEUTROPHIL # 4.4 TH/MM3 (1.8-7.7); BASOPHIL # 0.1 TH/MM3 (0-0.2); BASOPHIL % 0.7 % (0.0-2.0); EOSINOPHIL # 0.3 TH/MM3 (0-0.4); EOSINOPHIL % 3.7 % (0.0-4.0); HEMATOCRIT 36.7 % (39.0-51.0); HEMO FLAGS DIFF FINAL; LYMPH % 24.3 % (9.0-44.0); LYMPHOCYTE # 1.7 TH/MM3 (1.0-4.8); MEAN CELL VOLUME 95.7 FL (80.0-100.0); MEAN CORPUSCULAR HEMOGLOBIN 31.5 PG (27.0-34.0); MEAN CORPUSCULAR HGB CONC 32.9 % (32.0-36.0); MONO % 9.8 % (0.0-8.0); NEUT % 61.5 % (16.0-70.0); PLATELET COUNT 220 TH/MM3 (150-450); RED BLOOD COUNT 3.83 MIL/MM3 (4.50-5.90); RED CELL DISTRIBUTION WIDTH 14.5 % (11.6-17.2); WHITE BLOOD COUNT 7.1 TH/MM3 (4.0-11.0)
[2016-07-29 13:38] LABS: APTT (PATIENT) 27.1 SEC (24.3-30.1); PROTHROMBIN TIME - PATIENT 10.8 SEC (9.8-11.6)
[2016-07-29 13:55] LABS: ALT (GPT) 24 U/L (12-78); ANION GAP 4 MEQ/L (5-15); AST (GOT) 25 U/L (15-37); BICARBONATE 27.4 MEQ/L (21.0-32.0); BLOOD UREA NITROGEN 14 MG/DL (7-18); CHLORIDE 110 MEQ/L (98-107); GLOMERULAR FILTRATION RATE 94 ML/MIN (>89); POTASSIUM 4.4 MEQ/L (3.5-5.1); SODIUM (NA) 141 MEQ/L (136-145)
--- NOTE | 2016-07-29 13:58 | RADRPT ---
EXAM DATE/TIME: 07/29/2016 12:57 [facility] COMPARISON: No previous studies available for comparison. INDICATIONS : Short of breath MEDICAL HISTORY : Multiple sclerosis. SURGICAL HISTORY : ENCOUNTER: Initial ACUITY: 1 day PAIN SCORE: Non-responsive. LOCATION: Bilateral chest FINDINGS: 2 frontal views of the chest demonstrate a normal-sized cardiac silhouette. Lungs are underinflated w ith mild opacity at the lung bases. No pleural effusion or pneumothorax is identified. Bones and soft tissues demonstrate no acute finding. CONCLUSION: Underinflated examination with mild bibasilar opacity most likely representing atelectasis related to the underinflation. Otherwise, no acute finding is appreciated. Raphael Sevilla MD on July 29, 2016 at 13:55 Board Certified Radiologist. This report was verified electronically.
[2016-07-29 13:59] LABS: ALKALINE PHOSPHATASE 91 U/L (45-117); TOTAL BILIRUBIN ADULT 0.3 MG/DL (0.2-1.0)
[2016-07-29 14:01] LABS: BLOOD, URINE NEG (NEG); COMMENT (UR) CULT NOT INDICATED; CULTURE IF INDICATED CULT NOT INDICATED; GLUCOSE,URINE NEG (NEG); KETONE, URINE NEG (NEG); MUCUS URINE MANY /lpf (OCC); NITRITE,URINE NEG (NEG); SQUAMOUS EPITHELIAL CELL URINE <1 /hpf (0-5); URINE COLOR YELLOW (YELLW/STRAW)
--- NOTE | 2016-07-29 15:18 | PD ---
HPI Chief Complaint: Edema Time Seen by Provider: 12:57 Travel History International Travel<30 days: No Contact w/Intl Traveler<30days: No Traveled to known affect area: No History of Present Illness HPI Patient is a 40-year-old male who comes in complaining of bilateral leg swelling. Patient was here this morning per documentation to sleep, and went to [facility] where police were called due to trespassing. Police then called EMS. Patient has chronic history of lower leg swelling. He has been here multiple times for this. He is not having any shortness of breath. He was here early June for cellulitis of his legs. He denies fever or chills. 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 SKIN: Focused skin assessment warm/dry. Healing lesion to right lower extremity just below the knee. No areas of erythema or warmth. HEAD: Atraumatic. Normocephalic. EYES: Pupils equal and round. No scleral icterus. ENT: Mucous membranes pink and moist. NECK: Trachea midline. No JVD. CARDIOVASCULAR: Regular rate and rhythm. No murmur appreciated. RESPIRATORY: No accessory muscle use. Clear to auscultation. Breath sounds equal bilaterally. GASTROINTESTINAL: Abdomen soft, non-tender, nondistended. MUSCULOSKELETAL: No obvious deformities. No clubbing. No cyanosis. 2+ edema bilateral lower extremities. No calf tenderness. NEUROLOGICAL: Awake and alert. No obvious cranial nerve deficits. Motor grossly within normal limits. Normal speech. PSYCHIATRIC: Appropriate mood and affect; insight and judgment normal. Data Data Last Documented VS Vital Signs Date Time Temp Pulse Resp B/P Pulse Ox O2 Delivery O2 Flow Rate FiO2 07/29/16 13:15 98 07/29/16 13:15 74 16 143/78 Room Air Orders Complete Blood Count With Diff (07/29/16 12:57) Comprehensive Metabolic Panel (07/29/16 12:57) B-Type Natriuretic Peptide (07/29/16 12:57) Act Partial Throm Time (Ptt) (07/29/16 12:57) Prothrombin Time / Inr (Pt) (07/29/16 12:57) Troponin I (07/29/16 12:57) Urinalysis - C+S If Indicated (07/29/16 12:57) Ua Includes Microscopic (07/29/16 12:57) Iv Access Insert/Monitor (07/29/16 12:57) Electrocardiogram (07/29/16 12:57) Ecg Monitoring (07/29/16 12:57) Oximetry (07/29/16 12:57) Chest, Single Ap (07/29/16 12:57) Sodium Chloride 0.9% Flush (Ns Flush) (07/29/16 13:00) Ketorolac Inj (Toradol Inj) (07/29/16 13:00) Labs Laboratory Tests Test 07/29/16 07/29/16 13:10 13:30 White Blood Count 7.1 TH/MM3 Red Blood Count 3.83 MIL/MM3 Hemoglobin 12.1 GM/DL Hematocrit 36.7 % Mean Corpuscular Volume 95.7 FL Mean Corpuscular Hemoglobin 31.5 PG Mean Corpuscular Hemoglobin 32.9 % Concent Red Cell Distribution Width 14.5 % Platelet Count 220 TH/MM3 Mean Platelet Volume 7.4 FL Neutrophils (%) (Auto) 61.5 % Lymphocytes (%) (Auto) 24.3 % Monocytes (%) (Auto) 9.8 % Eosinophils (%) (Auto) 3.7 % Basophils (%) (Auto) 0.7 % Neutrophils # (Auto) 4.4 TH/MM3 Lymphocytes # (Auto) 1.7 TH/MM3 Monocytes # (Auto) 0.7 TH/MM3 Eosinophils # (Auto) 0.3 TH/MM3 Basophils # (Auto) 0.1 TH/MM3 CBC Comment DIFF FINAL Differential Comment Prothrombin Time 10.8 SEC Prothromb Time International 1.0 RATIO Ratio Activated Partial 27.1 SEC Thromboplast Time Sodium Level 141 MEQ/L Potassium Level 4.4 MEQ/L Chloride Level 110 MEQ/L Carbon Dioxide Level 27.4 MEQ/L Anion Gap 4 MEQ/L Blood Urea Nitrogen 14 MG/DL Creatinine 0.89 MG/DL Estimat Glomerular Filtration 94 ML/MIN Rate Random Glucose 99 MG/DL Calcium Level 8.8 MG/DL Total Bilirubin 0.3 MG/DL Aspartate Amino Transf 25 U/L (AST/SGOT) Alanine Aminotransferase 24 U/L (ALT/SGPT) Alkaline Phosphatase 91 U/L Troponin I LESS THAN 0.02 NG/ML B-Type Natriuretic Peptide 4 PG/ML Total Protein 7.2 GM/DL Albumin 3.5 GM/DL Urine Color YELLOW Urine Turbidity CLEAR Urine pH 6.0 Urine Specific [place] 1.035 Urine Protein TRACE mg/dL Urine Glucose (UA) NEG mg/dL Urine Ketones NEG mg/dL Urine Occult Blood NEG Urine Nitrite NEG Urine Bilirubin NEG Urine Urobilinogen 2.0 MG/DL Urine Leukocyte Esterase NEG Urine RBC 1 /hpf Urine WBC 1 /hpf Urine Squamous Epithelial <1 /hpf Cells Urine Mucus MANY /lpf Microscopic Urinalysis Comment CULT NOT INDICATED MDM Medical Decision Making Medical Screen Exam Complete: Yes Emergency Medical Condition: Yes Medical Record Reviewed: Yes Interpretation(s) ECG shows sinus rhythm at 74, early repolarization. Differential Diagnosis CHF versus cellulitis versus dependent edema Narrative Course Patient is a 40-year-old male who has been here multiple times for bilateral lower extremity swelling. Exam shows edema of the bilateral lower extremities. There are no signs of infection at this time. IV established, labs sent. Troponin, BMP, BNP are all within normal limits. Labs show no acute abnormalities. Chest x-ray shows poor effort, no evidence of disease, no cardiomegaly or pulmonary edema. Patient is sleeping comfortably. Informed that he needs to elevate his legs and wear compression stockings. Advised follow-up with a primary care doctor. Advised to return to the ED as needed for any worsening symptoms. Diagnosis Primary Impression: Bilateral lower extremity edema Referrals: [facility] call for appointment Patient Instructions: General Instructions, Leg Edema (ED) Additional Instructions: Keep your legs elevated. Wear compression stalkings. Return to the ED as needed for any worsening symptoms. Scripts No Active Prescriptions or Reported Meds Disposition: 01 DISCHARGE HOME Condition: Stable Sonia Abraham MD July 29, 2016 15:18
[2016-07-29 15:50] VITALS: BP 141/63
[2016-07-29 16:51] VITALS: BP 135/75
--- NOTE | 2016-07-30 15:45 | EKG ---
Date Performed: 07/29/2016 Time Performed: 13:32:24 PTAGE: 40 years EKG: Sinus rhythm MODERATE INTRAVENTRICULAR CONDUCTION DELAY ST ELEVATION, PROBABLY EARLY REPOLARIZATION BORDERLINE EC G NO PREVIOUS TRACING DOCTOR: Jim Young Interpretating Date/Time 07/30/2016 15:37:43
== END 2016-07-29 19:09 | disposition home or self-care (01) ==
LOC: NEPD 12:42
DX: R60.0 Localized edema (principal); R94.31 Abnormal electrocardiogram [ECG] [EKG]; G35 Multiple sclerosis; Z99.3 Dependence on wheelchair; Z95.0 Presence of cardiac pacemaker; Z72.0 Tobacco use
CPT/HCPCS: 71010; 80053; 81001; 83880; 84484; 85025; 85610; 85730; 93005; 96374; 99284; J1885

== ENCOUNTER 2016-08-16 23:44 | Emergency (ER) | payer OTHER ==
[~2016-08-16] VITALS: Ht 185.4 cm; Wt 100.0 kg
[2016-08-16 23:46] VITALS: BP 161/83; PULSE 76; RESP 18; TEMP 98.1; O2SAT 98
--- NOTE | 2016-08-17 00:54 | RADRPT ---
EXAM DATE/TIME: 08/17/2016 00:31 [facility] COMPARISON: CHEST SINGLE AP, July 29, 2016, 12:57. INDICATIONS : Shortness of breath. MEDICAL HISTORY : Multiple sclerosis. SURGICAL HISTORY : None. ENCOUNTER: Initial ACUITY: 1 day PAIN SCORE: 0/10 LOCATION: Bilateral chest FINDINGS: There is haziness to the perivascular structures partially technical, however mild interstitial proce ss is difficult to exclude. Focal consolidation is not seen. Heart and mediastinum are unremarkable f or technique. CONCLUSION: There is prominence of the perivascular markings with crowding of the bronchovascular markings may be due to expiratory state of this radiograph, however slight interstitial process is not excluded. Gabbi Echavarria MD on August 17, 2016 at 0:51 Board Certified Radiologist. This report was verified electronically.
--- NOTE | 2016-08-17 01:05 | PD ---
HPI Chief Complaint: General Weakness Time Seen by Provider: 00:08 Travel History International Travel<30 days: No Contact w/Intl Traveler<30days: No Traveled to known affect area: No History of Present Illness HPI The patient is a 41 year old male who presents to the [facility] emergency department with a history of generalized weakness and lower extremity edema that he reports became worse prompting his visit to the emergency department today. He reports he was at the bus stop trying to get to the emergency department when he called ambulance services. The patient is well-known to this facility area the patient has a history of multiple sclerosis and uses a wheelchair for transportation. The patient on arrival reports that his main concern is that is wheelchair is to big for him to use and get on the bus. The patient additionally reports that he was recently diagnosed with a skin infection of his legs and has lost his antibiotic prescription. From reviewing the electronic medical record, the patient was admitted in June related to a cellulitis involving the legs. The patient was last seen in this emergency department on July 29, 2016 related to his lower extremity edema. The patient underwent a full workup including laboratory studies and a BNP. The BNP was found to be within normal limits. White count at that time was 7.1. The patient was encouraged at that time to elevate his legs frequently and wear compression stockings. The patient at this time arrives by ambulance services with no compression stockings in place. A review of systems, the patient denies any recent fevers, cough, congestion, neck pain, chest pain, shortness of breath, abdominal pain, vomiting, diarrhea, urinary symptoms, or other new neurologic symptoms. [facility] Past Medical History Narrative Medical The patient's past medical history is significant for multiple sclerosis, chronic back pain, chronic lower extremity edema, history of cellulitis of his legs. Diminished Hearing: No Musculoskeletal: Yes (back pain) Neurologic: Yes (multiple sclerosis) Tetanus Vaccination: Unknown Influenza Vaccination: No Past Surgical History Narrative Surgical The patient's past surgical history is reportedly none. 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 Reported Meds & Prescriptions Reported Meds & Active Scripts Active Bactrim DS (Sulfamethoxazole-Trimethoprim) 800-160 Mg Tab 1 Tab PO BID Review of Systems Except as stated in HPI: all other systems reviewed are Neg General / Constitutional: No: Fever Eyes: No: Visual changes HENT: No: Headaches Cardiovascular: Positive: Edema, No: Chest Pain or Discomfort, Dyspnea on exertion Respiratory: No: Shortness of Breath Gastrointestinal: No: Nausea, Vomiting, Diarrhea, Abdominal Pain Genitourinary: No: Dysuria Musculoskeletal: Positive: Edema, No: Pain Skin: No Rash Neurologic: Positive: Weakness (generalized weakness), No: Focal Abnormalities , Change in Mentation, Slurred Speech, Sensory Disturbance Psychiatric: No: Depression Endocrine: No: Polydipsia Hematologic/Lymphatic: No: Easy Bruising Physical Exam Narrative General: The patient is a well-developed well-nourished male in no acute distress. Head and Neck exam: Head is normocephalic atraumatic. Eyes: EOMI, pupils are equal round and reactive to light. Nose: Midline septum with pink mucous membranes Mouth: Dentition unremarkable. Moist mucus membranes. Posterior oropharynx is not erythematous. No tonsillar hypertrophy. Uvula midline. Airway patent. Neck: No palpable lymphadenopathy. No nuchal rigidity. No thyromegaly. Cardiovascular: Regular rate and rhythm without murmurs, gallops, or rubs. Lungs: Clear to auscultation bilaterally. No wheezes, rhonchi, or rales. Abdomen: Soft, without tenderness to palpation in all 4 quadrants of the abdomen. No guarding, rebound, or rigidity. Normal bowel sounds are audible. No tenderness on palpation of McBurney's point. Negative Lechuga's sign. Extremities: No clubbing or cyanosis. 2+ pulses in all 4 extremities. The patient has 1+ pitting edema bilateral lower extremities. The patient has a healing wound along the right anterior archuleta. The patient's prior wounds that were examined by me previously in the emergency department have greatly improved compared to previously. Back: No costovertebral angle tenderness to palpation. Neurologic Exam: Cranial nerves 2-12 were intact on exam. Strength is 5/5 in all 4 extremities. No sensory deficits noted. The patient has been intermittent spasms noted of the lower extremities. Skin Exam: No rash noted. Data Data Last Documented VS Vital Signs Date Time Temp Pulse Resp B/P Pulse Ox O2 Delivery O2 Flow Rate FiO2 08/17/16 01:19 18 97 Room Air 08/16/16 23:46 98.1 76 161/83 Orders Complete Blood Count With Diff (08/17/16 00:17) Basic Metabolic Panel (Bmp) (08/17/16 00:17) Urinalysis - C+S If Indicated (08/17/16 00:17) Chest, Single Ap (08/17/16 00:17) Iv Access Insert/Monitor (08/17/16 00:17) Ecg Monitoring (08/17/16 00:17) Oximetry (08/17/16 00:17) Labs Laboratory Tests Test 08/17/16 01:00 White Blood Count 8.0 TH/MM3 Red Blood Count 3.76 MIL/MM3 Hemoglobin 12.0 GM/DL Hematocrit 36.0 % Mean Corpuscular Volume 95.8 FL Mean Corpuscular Hemoglobin 31.9 PG Mean Corpuscular Hemoglobin 33.3 % Concent Red Cell Distribution Width 13.5 % Platelet Count 240 TH/MM3 Mean Platelet Volume 7.1 FL Neutrophils (%) (Auto) 60.2 % Lymphocytes (%) (Auto) 24.5 % Monocytes (%) (Auto) 11.6 % Eosinophils (%) (Auto) 2.9 % Basophils (%) (Auto) 0.8 % Neutrophils # (Auto) 4.8 TH/MM3 Lymphocytes # (Auto) 2.0 TH/MM3 Monocytes # (Auto) 0.9 TH/MM3 Eosinophils # (Auto) 0.2 TH/MM3 Basophils # (Auto) 0.1 TH/MM3 CBC Comment DIFF FINAL Differential Comment Urine Color YELLOW Urine Turbidity CLEAR Urine pH 6.0 Urine Specific [place] 1.029 Urine Protein TRACE mg/dL Urine Glucose (UA) NEG mg/dL Urine Ketones NEG mg/dL Urine Occult Blood NEG Urine Nitrite NEG Urine Bilirubin NEG Urine Urobilinogen 2.0 MG/DL Urine Leukocyte Esterase NEG Urine RBC 1 /hpf Urine WBC 1 /hpf Urine Squamous Epithelial <1 /hpf Cells Urine Hyaline Casts 1 /lpf Urine Mucus FEW /lpf Microscopic Urinalysis Comment CULT NOT INDICATED Sodium Level 142 MEQ/L Potassium Level 3.8 MEQ/L Chloride Level 107 MEQ/L Carbon Dioxide Level 28.2 MEQ/L Anion Gap 7 MEQ/L Blood Urea Nitrogen 14 MG/DL Creatinine 0.82 MG/DL Estimat Glomerular Filtration 103 ML/MIN Rate Random Glucose 94 MG/DL Calcium Level 8.4 MG/DL MDM Medical Decision Making Medical Screen Exam Complete: Yes Emergency Medical Condition: Yes Medical Record Reviewed: Yes Interpretation(s) Last Impressions Chest X-Ray 08/17/16 0017 Signed Impressions: Service Date/Time: Wednesday, August 17, 2016 00:31 - CONCLUSION: There is prominence of the perivascular markings with crowding of the bronchovascular markings may be due to expiratory state of this radiograph, however slight interstitial process is not excluded. Gabbi Echavarria MD Differential Diagnosis Peripheral edema related to venous abnormalities of the legs, versus hypoalbuminemia, versus dependent edema from sitting in a wheelchair daily Narrative Course During the course of the patients emergency department visit, the patients history, examination, and differential diagnosis were reviewed with the patient. The patient had IV access obtained and blood work sent for analysis. The patient was placed on a gate cutter with oximetry and blood pressure monitoring. The patients laboratory studies were reviewed and remarkable for a white count of 8, hemoglobin 12, platelets 240 with a monocytosis of 11.6, BMP is unremarkable, urinalysis is unremarkable. Radiology studies were reviewed and remarkable for a chest x-ray that shows no acute abnormality. The patient's electronic medical record was reviewed and the patient was previously on Bactrim for a skin infection. He reports that the prescription was lost, therefore he was given a new prescription. The patient is resting comfortably and feels better, is alert and in no distress. The patients results and examination findings were discussed with the patient. The repeat examination is unremarkable and benign. The history, exam, diagnostic testing, and current condition do not suggest any significant pathology to warrant further testing, continued ED treatment, admission, or surgical evaluation at this point. The vital signs have been stable. The patient does not have uncontrollable pain, intractable vomiting, or other significant symptoms. The patient's condition is stable and appropriate for discharge. The patient will pursue further outpatient evaluation with a primary care physician or other designated or consulting physician as indicated in the discharge instructions. The patient expressed understanding and was agreeable with this plan. Diagnosis Primary Impression: Bilateral lower extremity edema Additional Impression: Generalized weakness Referrals: Primary Care Physician 2 days Additional Instructions: Review of the electronic medical record reveals that the patient was previously placed on Bactrim. The patient reports that he lost his prescription. The patient will be given another prescription to replace this. The patient is encouraged to elevate his legs frequently. The patient is encouraged to wear compression stockings. Med/Other Pt SpecificInfo: Prescription(s) given Scripts Sulfamethoxazole-Trimethoprim (Bactrim DS)800-160 Mg Tab1 Tab PO BID #14 TAB Ref 0 Prov:Laurie Ramirez MD 08/17/16 Disposition: 01 DISCHARGE HOME Condition: Stable Laurie Ramirez MD August 17, 2016 01:05
[2016-08-17 01:12] LABS: AUTOMATED NEUTROPHIL # 4.8 TH/MM3 (1.8-7.7); BASOPHIL # 0.1 TH/MM3 (0-0.2); BASOPHIL % 0.8 % (0.0-2.0); EOSINOPHIL # 0.2 TH/MM3 (0-0.4); EOSINOPHIL % 2.9 % (0.0-4.0); HEMO FLAGS DIFF FINAL; LYMPH % 24.5 % (9.0-44.0); MEAN CELL VOLUME 95.8 FL (80.0-100.0); MEAN CORPUSCULAR HEMOGLOBIN 31.9 PG (27.0-34.0); MEAN CORPUSCULAR HGB CONC 33.3 % (32.0-36.0); MONO % 11.6 % (0.0-8.0); NEUT % 60.2 % (16.0-70.0); PLATELET COUNT 240 TH/MM3 (150-450); RED BLOOD COUNT 3.76 MIL/MM3 (4.50-5.90); RED CELL DISTRIBUTION WIDTH 13.5 % (11.6-17.2)
[2016-08-17 01:19] VITALS: RESP 18; O2SAT 97
[2016-08-17 01:22] LABS: BLOOD, URINE NEG (NEG); COMMENT (UR) CULT NOT INDICATED; CULTURE IF INDICATED CULT NOT INDICATED; GLUCOSE,URINE NEG (NEG); HYALINE CAST, URINE 1 /lpf (RARE); KETONE, URINE NEG (NEG); MUCUS URINE FEW /lpf (OCC); NITRITE,URINE NEG (NEG); SQUAMOUS EPITHELIAL CELL URINE <1 /hpf (0-5); URINE COLOR YELLOW (YELLW/STRAW)
[2016-08-17 01:39] LABS: BICARBONATE 28.2 MEQ/L (21.0-32.0); POTASSIUM 3.8 MEQ/L (3.5-5.1)
[2016-08-17] MEDS ORDERED: BACT800T5 PO (02:07)
== END 2016-08-17 02:29 | disposition home or self-care (01) ==
LOC: NEPC 23:44
DX: R60.0 Localized edema (principal); R53.1 Weakness; G35 Multiple sclerosis; Z72.0 Tobacco use; Z87.39 Personal history of other diseases of the musculoskeletal system and connective tissue
CPT/HCPCS: 71010; 80048; 81001; 85025; 99284

== ENCOUNTER 2016-09-01 01:11 | Observation (INO) | payer OTHER ==
[~2016-09-01] VITALS: Ht 195.6 cm; Wt 136.2 kg
[2016-09-01] VITALS (9 sets, daily range): BP systolic 107–136; BP diastolic 58–76; PULSE 71–95; RESP 16–24; TEMP 94.3–98.5; O2SAT 93–98
--- NOTE | 2016-09-01 03:40 | PD ---
HPI Chief Complaint: Edema Time Seen by Provider: 02:22 Travel History International Travel<30 days: No Contact w/Intl Traveler<30days: No Traveled to known affect area: No History of Present Illness HPI The patient is a 41 year old male who presents to the [facility] emergency department with a history of generalized weakness with difficulty staying awake most days that he reports is been chronic although worsening with time. The patient is currently homeless. The patient has a history of multiple sclerosis and uses a wheelchair for mobility, however he does report that he attempts to walk regularly to maintain his strength in his legs. He reports that he is normally on Copaxone, however he has not been able to take this over the last at least 2 months as it requires refrigeration and he has been living on the [address]. The patient incidentally reports having lower extremity edema, however this is also been chronic in nature. I'm review of systems, the patient denies having any known recent fevers, congestion, neck pain, chest pain, shortness of breath, abdominal pain, vomiting, diarrhea, urinary symptoms, or other neurologic symptoms. [facility] Past Medical History Narrative Medical The patient's past medical history is significant for multiple sclerosis, chronic back pain, chronic lower extremity edema, history of recurrent cellulitis of the lower extremities. Diminished Hearing: No Musculoskeletal: Yes (back pain) Neurologic: Yes (multiple sclerosis) Immunizations Current: Yes Tetanus Vaccination: Unknown Influenza Vaccination: No Past Surgical History Narrative Surgical The patient's past surgical history is significant for none. Social History Alcohol Use: No Tobacco Use: Yes Substance Use: Yes ("weed") Allergies-Medications (Allergen,Severity, Reaction): Coded Allergies: *MDRO Multi-Drug Resistant Organism (Verified Adverse Reaction, Unknown, ) MRSA (leg)-07/05/16 & 07/20/16 Reported Meds & Prescriptions Reported Meds & Active Scripts Active No Active Prescriptions or Reported Medications Review of Systems Except as stated in HPI: all other systems reviewed are Neg General / Constitutional: No: Fever Eyes: No: Visual changes HENT: No: Headaches, Congestion Cardiovascular: No: Chest Pain or Discomfort Respiratory: Positive: Cough, No: Shortness of Breath Gastrointestinal: No: Nausea, Vomiting, Diarrhea, Abdominal Pain Genitourinary: No: Dysuria Musculoskeletal: No: Pain Skin: No Rash Neurologic: Positive: Weakness (generalized weakness), Other (difficulty staying awake), No: Focal Abnormalities, Change in Mentation, Slurred Speech, Sensory Disturbance Psychiatric: No: Depression Endocrine: No: Polydipsia Hematologic/Lymphatic: No: Easy Bruising Physical Exam Narrative General: The patient is a well-developed well-nourished male, sleeping soundly on my arrival to the room, initially difficult to awaken, however with further stimulation he was able to provide history. Head and Neck exam: Head is normocephalic atraumatic. Eyes: EOMI, pupils are equal round and reactive to light. Nose: Midline septum with pink mucous membranes Mouth: Dentition unremarkable. Moist mucus membranes. Posterior oropharynx is not erythematous. No tonsillar hypertrophy. Uvula midline. Airway patent. Neck: No palpable lymphadenopathy. No nuchal rigidity. No thyromegaly. Cardiovascular: Regular rate and rhythm without murmurs, gallops, or rubs. Lungs: Clear to auscultation bilaterally. No wheezes, rhonchi, or rales. Abdomen: Soft, without tenderness to palpation in all 4 quadrants of the abdomen. No guarding, rebound, or rigidity. Normal bowel sounds are audible. No tenderness on palpation of McBurney's point. Extremities: No clubbing or cyanosis. The patient has 1+ to 2+ pitting edema bilateral lower extremities. The patient has an abrasion along the left anterior lower leg. 2+ pulses in all 4 extremities. Back: No spinous process tenderness to palpation. No costovertebral angle tenderness to palpation. Neurologic Exam: Cranial nerves 2-12 were intact on exam. Strength is 5/5 in all 4 extremities. No sensory deficits noted. The patient on examination has some spastic movements of his lower extremities which he reports is chronic related to the MS. Skin Exam: No rash noted. Data Data Last Documented VS Vital Signs Date Time Temp Pulse Resp B/P Pulse Ox O2 Delivery O2 Flow Rate FiO2 09/01/16 04:14 98.5 09/01/16 04:07 71 16 136/69 97 Room Air Orders Complete Blood Count With Diff (09/01/16 03:24) Comprehensive Metabolic Panel (09/01/16 03:24) Creatine Kinase (Cpk) (09/01/16 03:24) Ckmb (Isoenzyme) Profile (09/01/16 03:24) Troponin I (09/01/16 03:24) B-Type Natriuretic Peptide (09/01/16 03:24) Westergren Sedimentation Rate (09/01/16 03:24) Magnesium (Mg) (09/01/16 03:24) Thyroid Stimulating Hormone (09/01/16 03:24) Chest, Single Ap (09/01/16 03:24) Iv Access Insert/Monitor (09/01/16 03:24) Ecg Monitoring (09/01/16 03:24) Oximetry (09/01/16 03:24) Electrocardiogram (09/01/16 03:40) CKMB (09/01/16 03:35) CKMB% (09/01/16 03:35) Admit Order (Ed Use Only) (09/01/16 04:37) Labs Laboratory Tests Test 09/01/16 03:35 White Blood Count 7.9 TH/MM3 Red Blood Count 3.89 MIL/MM3 Hemoglobin 12.4 GM/DL Hematocrit 37.6 % Mean Corpuscular Volume 96.6 FL Mean Corpuscular Hemoglobin 31.8 PG Mean Corpuscular Hemoglobin 32.9 % Concent Red Cell Distribution Width 13.3 % Platelet Count 262 TH/MM3 Mean Platelet Volume 7.4 FL Neutrophils (%) (Auto) 58.4 % Lymphocytes (%) (Auto) 28.4 % Monocytes (%) (Auto) 9.8 % Eosinophils (%) (Auto) 2.8 % Basophils (%) (Auto) 0.6 % Neutrophils # (Auto) 4.6 TH/MM3 Lymphocytes # (Auto) 2.2 TH/MM3 Monocytes # (Auto) 0.8 TH/MM3 Eosinophils # (Auto) 0.2 TH/MM3 Basophils # (Auto) 0.0 TH/MM3 CBC Comment DIFF FINAL Differential Comment Erythrocyte Sedimentation Rate 18 mm/hr Sodium Level 140 MEQ/L Potassium Level 4.1 MEQ/L Chloride Level 107 MEQ/L Carbon Dioxide Level 24.9 MEQ/L Anion Gap 8 MEQ/L Blood Urea Nitrogen 15 MG/DL Creatinine 0.87 MG/DL Estimat Glomerular Filtration 96 ML/MIN Rate Random Glucose 94 MG/DL Calcium Level 8.6 MG/DL Magnesium Level 2.1 MG/DL Total Bilirubin 0.2 MG/DL Aspartate Amino Transf 20 U/L (AST/SGOT) Alanine Aminotransferase 19 U/L (ALT/SGPT) Alkaline Phosphatase 98 U/L Total Creatine Kinase 247 U/L Creatine Kinase MB 4.0 NG/ML Troponin I LESS THAN 0.02 NG/ML B-Type Natriuretic Peptide 22 PG/ML Total Protein 7.2 GM/DL Albumin 3.3 GM/DL Thyroid Stimulating Hormone 2.920 uIU/ML 3rd Gen [facility] Medical Decision Making Medical Screen Exam Complete: Yes Emergency Medical Condition: Yes Medical Record Reviewed: Yes Interpretation(s) Last Impressions Chest X-Ray 09/01/16 0324 Signed Impressions: Service Date/Time: Thursday, September 01, 2016 03:36 - CONCLUSION: Questionable early airspace disease right lower lobe could be a small area of pneumonia.. Xavi Mejia MD Differential Diagnosis Generalized weakness and fatigue related to progression of multiple sclerosis off of his medication, versus sleep apnea, versus underlying infectious process Narrative Course During the course of the patients emergency department visit, the patients history, examination, and differential diagnosis were reviewed with the patient. The patient had IV access obtained and blood work sent for analysis. The patient states on a hospital monitor with oximetry and blood pressure monitoring. The case management consultation in the emergency department occurred. I discussed with the case making machine operatorsales manager [place] for this patient in rehabilitation for generalized weakness. She reports that it appears that he would qualify. The patient had an EKG done on arrival. The patient's EKG reveals a sinus rhythm heart rate of 78, moderate intraventricular conduction delay with a QRS duration of 112 ms, QTC [address] segment elevation or depression, T waves are inverted in V1 The patients laboratory studies were reviewed and remarkable for a white count of 7.9, hemoglobin 12.4, platelets 262 with 9.8 monocytes, sedimentation rate is 18, CMP is remarkable for an albumin of 3.3, cardiac enzymes are within normal limits, BNP is 22, TSH 2.92. Radiology studies were reviewed and remarkable for a chest x-ray that reveals questionable early airspace disease in the right lower lobe which could be a small area of pneumonia. The patient was treated with Zithromax 500 by mouth. The patients results were discussed with the patient, including the plan of care. I explained that further testing and/ or monitoring is indicated based on the patients history, examination, and/ or laboratory findings. Therefore, I recommended admission for additional evaluation. The patient expressed understanding and was agreeable with this plan. The patient was admitted to the hospital in stable condition and sent to a bed under the care of the [facility]. Physician Communication Physician Communication The patient's case was discussed with Dr. Sargent who did agree to admit the patient for further evaluation and treatment at this time. Diagnosis Primary Impression: Generalized weakness Additional Impressions: Multiple sclerosis Lung infiltrate Admitting Information Admitting Physician Requests: Observation Scripts No Active Prescriptions or Reported Meds Laurie Ramirez MD Sep 01, 2016 03:40
[2016-09-01 03:50] LABS: AUTOMATED NEUTROPHIL # 4.6 TH/MM3 (1.8-7.7); BASOPHIL % 0.6 % (0.0-2.0); EOSINOPHIL # 0.2 TH/MM3 (0-0.4); EOSINOPHIL % 2.8 % (0.0-4.0); HEMATOCRIT 37.6 % (39.0-51.0); HEMO FLAGS DIFF FINAL; LYMPH % 28.4 % (9.0-44.0); LYMPHOCYTE # 2.2 TH/MM3 (1.0-4.8); MEAN CELL VOLUME 96.6 FL (80.0-100.0); MEAN CORPUSCULAR HEMOGLOBIN 31.8 PG (27.0-34.0); MEAN CORPUSCULAR HGB CONC 32.9 % (32.0-36.0); MONO % 9.8 % (0.0-8.0); NEUT % 58.4 % (16.0-70.0); PLATELET COUNT 262 TH/MM3 (150-450); RED BLOOD COUNT 3.89 MIL/MM3 (4.50-5.90); RED CELL DISTRIBUTION WIDTH 13.3 % (11.6-17.2); WHITE BLOOD COUNT 7.9 TH/MM3 (4.0-11.0)
--- NOTE | 2016-09-01 03:52 | RADRPT ---
EXAM DATE/TIME: 09/01/2016 03:36 [facility] COMPARISON: CHEST SINGLE AP, August 17, 2016, 0:31. INDICATIONS : Cough. MEDICAL HISTORY : Multiple sclerosis. SURGICAL HISTORY : None. ENCOUNTER: Initial ACUITY: 1 day PAIN SCORE: 0/10 LOCATION: Bilateral chest FINDINGS: A single view of the chest demonstrates the lungs to be symmetrically aerated without evidence of mas s, or effusion. There may be a tiny amount of airspace disease in the right lower lobe The cardiomedi astinal contours are unremarkable. Osseous structures are intact. CONCLUSION: Questionable early airspace disease right lower lobe could be a small area of pneumonia.. Xavi Mejia MD on September 01, 2016 at 3:50 Board Certified Radiologist. This report was verified electronically.
[2016-09-01 03:57] LABS: ALT (GPT) 19 U/L (12-78); ANION GAP 8 MEQ/L (5-15); AST (GOT) 20 U/L (15-37); BICARBONATE 24.9 MEQ/L (21.0-32.0); BLOOD UREA NITROGEN 15 MG/DL (7-18); CHLORIDE 107 MEQ/L (98-107); GLOMERULAR FILTRATION RATE 96 ML/MIN (>89); MAGNESIUM 2.1 MG/DL (1.5-2.5); POTASSIUM 4.1 MEQ/L (3.5-5.1); SODIUM (NA) 140 MEQ/L (136-145)
[2016-09-01 04:06] LABS: ALKALINE PHOSPHATASE 98 U/L (45-117); CREATINE KINASE 247 U/L (39-308); TOTAL BILIRUBIN ADULT 0.2 MG/DL (0.2-1.0)
[2016-09-01] MEDS ORDERED: NALOXONE HCL 0.4 MG/ML AMP IV PRN (05:15)
[2016-09-01] MEDS ORDERED: ONDANSETRON HCL 4 MG/2 ML VIAL IVP PRN (05:15)
[2016-09-01] MEDS ORDERED: MORPHINE SULFATE 4 MG/ML INJ IV PRN ×2 (05:15)
[2016-09-01] MEDS ORDERED: SODIUM CHLORIDE 0.9% FLUSH 10 ML FLUSH IV FLUSH PRN (05:15)
[2016-09-01] MEDS ORDERED: oxyCODONE/ACETAMINOPHEN 5 MG/325 MG TAB PO PRN (05:15)
[2016-09-01] MEDS ORDERED: AZITHROMYCIN 250 MG TAB PO ONE (05:30)
[2016-09-01] MEDS: HEPARIN SODIUM - SQ 10,000 UNITS/ML VIAL SQ SCH ×3 (06:00→22:57)
[2016-09-01] MEDS: DOCUSATE SODIUM 50 MG/SENNA 8.6 MG TAB PO SCH ×2 (09:42→22:56)
[2016-09-01] MEDS: SODIUM CHLORIDE 0.9% FLUSH 10 ML FLUSH IV FLUSH SCH (09:42)
--- NOTE | 2016-09-01 15:01 | HHI.HP ---
[facility] No Primary Care Physician Admission Diagnosis Inability to ambulate, medication non-compliance Diagnoses: (1) Multiple sclerosis Diagnosis: Principal (2) Exacerbation of multiple sclerosis Diagnosis: Principal (3) Generalized weakness Diagnosis: Principal Travel History International Travel<30 Days: No Contact w/Intl Traveler <30 Da: No Traveled to Known Affected Are: No History of Present Illness Mr. Nichols is a 41-year-old male. He has multiple sclerosis at baseline. At baseline he was on Copaxone as a management for his MS. He says he has a prescription for this but he is now homeless and does not have a refrigerator to keep his medications and so he has not been able take this medication for 1- 2 months. In this phase and especially recently he has had a progressive onset of weakness. At this point he cannot ambulate. No fevers reported. No diarrhea. No nausea or vomiting. No headaches. It was reported to me that he was expressing suicidal ideations by the nurse. For me remains silent when I ask him this question. He is not very cooperative during the interview. I am unaware of his baseline mental status and personality. Nurses also reported he was confused, which may be related to MS flare. Review of Systems ROS Limitations: Altered Mental Status, Uncooperative, Refused Neurologic: COMPLAINS OF: Abnormal gait, Localized weakness, Poor Balance Past Family Social History Past Medical History Multiple sclerosis Past Surgical History None reported Reported Medications Reported Meds & Active Scripts Active No Active Prescriptions or Reported Medications Allergies: Coded Allergies: *MDRO Multi-Drug Resistant Organism (Verified Adverse Reaction, Unknown, ) MRSA (leg)-07/05/16 & 07/20/16 Active Ordered Medications Administered Medications Medications (Trade) Dose Ordered Sig/Sabine Route PRN Reason Start Time Stop Time Status Last Admin Dose Admin Sodium Chloride (NS Flush) 2 ml BID IV FLUSH 09/01/16 09:00 09/01/16 09:42 Senna/Docusate Sodium (Herlinda-Colace) 1 tab BID PO 09/01/16 09:00 09/01/16 09:42 Family History None reported Social History Patient declines to answer these questions Physical Exam Vital Signs Vital Signs Date Time Temp Pulse Resp B/P Pulse Ox O2 Delivery O2 Flow Rate FiO2 09/01/16 12:00 98.3 88 16 126/59 96 09/01/16 08:14 93 21 09/01/16 05:34 97 09/01/16 04:14 98.5 09/01/16 04:07 71 16 136/69 97 Room Air 09/01/16 03:40 16 09/01/16 01:49 94.3 71 18 123/58 98 Physical Exam GENERAL: NAD, A&Ox2 SKIN: Warm and dry. HEAD: Normocephalic. EYES: No scleral icterus. No injection or drainage. NECK: Supple, trachea midline. No JVD or lymphadenopathy. CARDIOVASCULAR: Regular rate and rhythm without murmurs, gallops, or rubs. RESPIRATORY: Breath sounds equal bilaterally. No accessory muscle use. GASTROINTESTINAL: Abdomen soft, non-tender, nondistended. MUSCULOSKELETAL: No cyanosis, or edema. Lower extremity weakness Laboratory Laboratory Tests Test 09/01/16 03:35 White Blood Count 7.9 Red Blood Count 3.89 Hemoglobin 12.4 Hematocrit 37.6 Mean Corpuscular Volume 96.6 Mean Corpuscular Hemoglobin 31.8 Mean Corpuscular Hemoglobin 32.9 Concent Red Cell Distribution Width 13.3 Platelet Count 262 Mean Platelet Volume 7.4 Neutrophils (%) (Auto) 58.4 Lymphocytes (%) (Auto) 28.4 Monocytes (%) (Auto) 9.8 Eosinophils (%) (Auto) 2.8 Basophils (%) (Auto) 0.6 Neutrophils # (Auto) 4.6 Lymphocytes # (Auto) 2.2 Monocytes # (Auto) 0.8 Eosinophils # (Auto) 0.2 Basophils # (Auto) 0.0 CBC Comment DIFF FINAL Differential Comment Erythrocyte Sedimentation Rate 18 Sodium Level 140 Potassium Level 4.1 Chloride Level 107 Carbon Dioxide Level 24.9 Anion Gap 8 Blood Urea Nitrogen 15 Creatinine 0.87 Estimat Glomerular Filtration 96 Rate Random Glucose 94 Calcium Level 8.6 Magnesium Level 2.1 Total Bilirubin 0.2 Aspartate Amino Transf 20 (AST/SGOT) Alanine Aminotransferase 19 (ALT/SGPT) Alkaline Phosphatase 98 Total Creatine Kinase 247 Creatine Kinase MB 4.0 Troponin I LESS THAN 0.02 B-Type Natriuretic Peptide 22 Total Protein 7.2 Albumin 3.3 Thyroid Stimulating Hormone 2.920 3rd Gen Result Diagram: 09/01/16 0335 09/01/16 033 Imaging Last Impressions Chest X-Ray 09/01/16323 Signed Impressions: Service Date/Time: Tuesday, September 01, 2016 03:36 - CONCLUSION: Questionable early airspace disease right lower lobe could be a small area of pneumonia.. Xavi Mejia MD Assessment and Plan Problem List: (1) Exacerbation of multiple sclerosis ICD Code: G35 Status: Acute (2) Multiple sclerosis ICD Code: G35 Status: Acute (3) Generalized weakness ICD Code: R53.1 Status: Acute Assessment and Plan Assessment and plan 41-year-old male admitted with multiple sclerosis exacerbation Multiple sclerosis exacerbation Start Systemic steroids Monitor neurologic status MRI of brain Neurochecks Physical therapy Follow for improvement Suspected depression Possible suicidal ideology Obtain psychiatric consult DVT prophylaxis SCDs given fall risk Tin Gutierrez MD Sep 01, 2016 3:00 pm
[2016-09-01] MEDS ORDERED: DO NOT ADM ANY ANTICOAGULANT DRUGS PRN (16:00)
--- NOTE | 2016-09-01 16:09 | EKG ---
Date Performed: 09/01/2016 Time Performed: 03:58:43 PTAGE: 41 years EKG: Sinus rhythm MODERATE INTRAVENTRICULAR CONDUCTION DELAY BORDERLINE ECG PREVIOUS TRACING : 07/29/2016 13.32 Compared to prior tracing no significant change DOCTOR: Vern Boles Interpretating Date/Time 09/01/2016 16:09:10
[2016-09-01] MEDS: oxyCODONE/ACETAMINOPHEN 10 MG/325 MG TAB PO PRN (19:25)
[2016-09-02] VITALS: BP 109/81; PULSE 93; RESP 22; TEMP 97.1; O2SAT 96
[2016-09-02] MEDS: HEPARIN SODIUM - SQ 10,000 UNITS/ML VIAL SQ SCH ×3 (06:00→20:32)
[2016-09-02 06:19] LABS: AUTOMATED NEUTROPHIL # 4.5 TH/MM3 (1.8-7.7); BASOPHIL % 0.6 % (0.0-2.0); EOSINOPHIL # 0.2 TH/MM3 (0-0.4); EOSINOPHIL % 2.6 % (0.0-4.0); HEMO FLAGS DIFF FINAL; LYMPH % 25.1 % (9.0-44.0); LYMPHOCYTE # 1.8 TH/MM3 (1.0-4.8); MEAN CELL VOLUME 95.9 FL (80.0-100.0); MEAN CORPUSCULAR HEMOGLOBIN 31.6 PG (27.0-34.0); MONO % 9.3 % (0.0-8.0); NEUT % 62.4 % (16.0-70.0); PLATELET COUNT 261 TH/MM3 (150-450); RED BLOOD COUNT 3.96 MIL/MM3 (4.50-5.90); RED CELL DISTRIBUTION WIDTH 13.4 % (11.6-17.2); WHITE BLOOD COUNT 7.2 TH/MM3 (4.0-11.0)
[2016-09-02 06:39] LABS: BICARBONATE 29.2 MEQ/L (21.0-32.0); POTASSIUM 4.2 MEQ/L (3.5-5.1)
[2016-09-02 08:00] VITALS: BP 128/71; PULSE 87; RESP 18; TEMP 98.1; O2SAT 98
[2016-09-02] MEDS: oxyCODONE/ACETAMINOPHEN 10 MG/325 MG TAB PO PRN ×2 (08:53→20:45)
[2016-09-02] MEDS: MAGNESIUM HYDROXIDE SUSP 30 ML CUP PO PRN ×2 (08:54→20:31)
[2016-09-02] MEDS: DOCUSATE SODIUM 50 MG/SENNA 8.6 MG TAB PO SCH ×2 (08:55→20:32)
[2016-09-02] MEDS: methylPREDNISolone SOD SUCC 125 MG/2 ML VIAL IM SCH ×2 (08:55→20:33)
[2016-09-02] MEDS: SODIUM CHLORIDE 0.9% FLUSH 10 ML FLUSH IV FLUSH SCH ×2 (08:55→20:33)
[2016-09-02] MEDS ORDERED: INFLUENZA VIRUS VACCINE (QUADRIVALENT) 0.5 ML SYR IM ONE (10:00)
[2016-09-02] MEDS ORDERED: PNEUMOCOCCAL POLYVALENT INJ 25 MCG/0.5 ML SYR IM ONE (10:00)
[2016-09-02 12:00] VITALS: BP 122/66; PULSE 73; RESP 18; TEMP 99.4; O2SAT 97
--- NOTE | 2016-09-02 12:10 | HHI.PR ---
Subjective Remarks In bed, Says she can't move . Says he has no pain. no cp, sob, palpitations. Says he has weakness worsening but will like to have PT to improve. No fever or chills. Objective Vitals Vital Signs Date Time Temp Pulse Resp B/P Pulse Ox O2 Delivery O2 Flow Rate FiO2 09/02/16 08:00 98.1 87 18 128/71 98 09/02/16 00:00 97.1 93 22 109/81 96 09/01/16 20:00 97.1 95 24 107/76 94 09/01/16 15:12 98.2 89 16 123/62 96 I/O 09/01/16 09/01/16 09/01/16 09/02/16 09/02/16 09/02/16 07:00 15:00 23:00 07:00 15:00 23:00 Intake Total 1020 ml 480 ml Output Total 1100 ml Balance -80 ml 480 ml Intake Oral 1020 ml 480 ml Output Urine Total 1100 ml # Voids 3 2 # Bowel Movements 0 0 Result Diagram: 09/02/16 0529 09/02/16 0529 Imaging Last Impressions Chest X-Ray 09/01/16 0324 Signed Impressions: Service Date/Time: Thursday, September 01, 2016 03:36 - CONCLUSION: Questionable early airspace disease right lower lobe could be a small area of pneumonia.. Xavi Mejia MD Objective Remarks GENERAL: NAD, A&Ox2 SKIN: Warm and dry. HEAD: Normocephalic. EYES: No scleral icterus. No injection or drainage. NECK: Supple, trachea midline. No JVD or lymphadenopathy. CARDIOVASCULAR: Regular rate and rhythm without murmurs, gallops, or rubs. RESPIRATORY: Breath sounds equal bilaterally. No accessory muscle use. GASTROINTESTINAL: Abdomen soft, non-tender, nondistended. MUSCULOSKELETAL: No cyanosis, or edema. Lower extremity weakness A/P Problem List: (1) Exacerbation of multiple sclerosis ICD Code: G35 Status: Acute (2) Multiple sclerosis ICD Code: G35 Status: Acute (3) Generalized weakness ICD Code: R53.1 Status: Acute Assessment and Plan 41-year-old male admitted with multiple sclerosis exacerbation Multiple sclerosis with exacerbation Start Systemic steroids Monitor neurologic status MRI of brain Neurochecks Physical therapy Follow for improvement Consult neurology Suspected depression Possible suicidal ideology, psychiatry consulted DVT prophylaxis SCDs given fall risk Sis Spaulding MD Sep 02, 2016 12:10
[2016-09-02 16:00] VITALS: BP 128/73; PULSE 73; RESP 18; TEMP 98.3; O2SAT 95
[2016-09-02] MEDS ORDERED: GADODIAMIDE PF 287 MG/ML 20 ML VIAL (for RAD MRI) IV ONE (16:25)
--- NOTE | 2016-09-02 16:58 | RADRPT ---
EXAM DATE/TIME: 09/02/2016 15:52 [facility] COMPARISON: No previous studies available for comparison. INDICATIONS : Multiple sclerosis. CONTRAST: 20 cc Omniscan (gadodiamide) IV MEDICAL HISTORY : Multiple sclerosis. SURGICAL HISTORY : None. ENCOUNTER: Subsequent ACUITY: 4-6 days PAIN SCORE: 7/10 LOCATION: back. TECHNIQUE: Multiplanar, multisequence MRI of the brain was performed both prior to and following the administrat ion of paramagnetic contrast. FINDINGS: Axial inversion recovery images demonstrate abnormal T2 signal diffusely throughout the white matter. The abnormal white matter signal is significantly more than would be expected of a patient of this a ge and would suggest underlying demyelinative process. No abnormal signal is seen on the diffusion restricted images. No mass lesion is identified. The ventricular system is normal in size and configuration. No abnormal intra-or extra-axial fluid collections are seen. The appearance of the posterior fossa is unremarkable. The sinuses are clear. The orbits are intact. The examination does demonstrate a small amount of flui d within the mastoid air cells bilaterally. CONCLUSION: Extensive abnormal T2 signal throughout the white matter. In the appropriate clinical setting this wo uld suggest a demyelinative process. Tin Zamudio MD on September 02, 2016 at 16:51 Board Certified Radiologist. This report was verified electronically.
[2016-09-02 20:00] VITALS: BP 126/86; PULSE 91; RESP 22; TEMP 98.7; O2SAT 96
[2016-09-02] MEDS: SENNOSIDES 8.6 MG TAB PO PRN (20:36)
[2016-09-03] VITALS: BP 141/77; PULSE 71; RESP 21; TEMP 97.1; O2SAT 95
[2016-09-03] MEDS: HEPARIN SODIUM - SQ 10,000 UNITS/ML VIAL SQ SCH ×3 (06:13→21:57)
[2016-09-03 08:00] VITALS: BP 103/53; PULSE 77; RESP 16; TEMP 98; O2SAT 99
[2016-09-03] MEDS: methylPREDNISolone SOD SUCC 125 MG/2 ML VIAL IM SCH (08:28)
[2016-09-03] MEDS: DOCUSATE SODIUM 50 MG/SENNA 8.6 MG TAB PO SCH ×2 (08:28→21:55)
[2016-09-03] MEDS: oxyCODONE/ACETAMINOPHEN 10 MG/325 MG TAB PO PRN ×2 (08:28→17:32)
[2016-09-03] MEDS: MAGNESIUM HYDROXIDE SUSP 30 ML CUP PO PRN (08:28)
[2016-09-03] MEDS: SODIUM CHLORIDE 0.9% FLUSH 10 ML FLUSH IV FLUSH SCH ×2 (08:29→21:56)
--- NOTE | 2016-09-03 09:20 | MB ---
cc: GINETTE ELKINS M.D. DATE OF CONSULTATION 09/03/2016 REASON FOR CONSULTATION This is a 41-year-old seen in neurological consultation in regards to multiple sclerosis and weakness. The patient describes that he was diagnosed with MS in 1998. It affected his legs and this has been a progressive and intermittent disorder. He had been on Copaxone. He moved here from [place] about a year ago apparently to stay with some family here and had some disagreement with the family and has been alone. He says he is living on the streets and unable to take his Copaxone as he has no refrigerator. It appears that he is getting no medical care and he uses a wheelchair. He came in to the hospital because of worsening weakness. He has a somewhat poor historian. He admits having some difficulty with his bladder. He denies problems with the upper extremities. He has been in the wheelchair for a couple of years, although he is trying to get back to a walker. NEUROLOGICAL EXAM: The neurologic exam showed the patient to be alert, awake, trying to make phone calls, but he is not the best historian. He has a very mildly dysarthric speech. He is oriented to person and place. Ocular movements were full, no nystagmus. No double vision. The pupils were equal and reactive. I was unable to see the disks. No pupillary afferent defect. No facial symmetry. In the upper extremity, he has moderate strength and has also mild to moderate difficulty with fine finger and hand coordination that seems to be bilateral. In the lower extremities, the patient has severe paraparesis with spasticity and he has brisk reflexes with bilateral plantar extensor responses. Position sense with at least some mild impairment on the distal lower extremities. He is sitting in bed at the time of my exam. The patient had an MRI of the brain yesterday showing extensive white matter changes suggestive of a demyelinating process. Study was done with and without contrast. No abnormal enhancement. LABS The labs included a sed rate being 18, CBC with white count 7.2, hemoglobin 12.5, platelets 261. Basic chemistry normal and a more comprehensive chemistry from 09/01 was also unremarkable. TSH normal. ASSESSMENT Multiple sclerosis, exacerbation. This is primarily affecting gait and effects bladder and sphincter as well. He is a poor historian. Noncompliant to medication. He has been homeless and not getting any medical care, as far as I can gather. He gave me some vague history of being supported by the multiple sclerosis Society. At this point, I will switch him to Solu-Medrol 250 mg IV every six hours for three days, obtain an MRI of the cervical and thoracic spine. Mostly he is going to need social studies department chair and appropriate outpatient medical and neurological care. We will determine if any mini modulator treatment modalities will be available for him due to his social circumstances. Thank you for asking us to assist in his care. MD JEFE Garland/RODRIGUEZ /8:17 AM /9:09 AM
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
[2016-09-03] MEDS: PANTOPRAZOLE SOD 40 MG DELAYED RELEASE TAB PO SCH (11:09)
[2016-09-03 12:00] VITALS: BP 119/68; PULSE 73; RESP 16; TEMP 98.4; O2SAT 95
[2016-09-03] MEDS: methylPREDNISolone SOD SUCC 125 MG/2 ML VIAL IV SCH ×2 (12:12→17:31)
--- NOTE | 2016-09-03 13:59 | HHI.PR ---
Subjective Remarks Patient in bed. Says she feels some improvement. Still with weakness and spasticity of lower extremities. Plan for MRI spine No new motor deficit. No n/v/d/c. BS elevated 2/2 steroid use. will ass accu and ISS Objective Vitals Vital Signs Date Time Temp Pulse Resp B/P Pulse Ox O2 Delivery O2 Flow Rate FiO2 09/03/16 00:00 97.1 71 21 141/77 95 09/02/16 20:00 98.7 91 22 126/86 96 09/02/16 19:06 Room Air 09/02/16 16:00 98.3 73 18 128/73 95 I/O 09/02/16 09/02/16 09/02/16 09/03/16 09/03/16 09/03/16 07:00 15:00 23:00 07:00 15:00 23:00 Intake Total 480 ml 1100 ml 780 ml Output Total 750 ml 1500 ml Balance 480 ml 350 ml -720 ml Intake Oral 480 ml 1100 ml 780 ml Output Urine Total 750 ml 1500 ml # Voids 2 # Bowel Movements 0 0 0 Result Diagram: 09/02/16 0529 09/02/16 0529 Imaging Last Impressions Brain MRI 09/02/16 0000 Signed Impressions: Service Date/Time: August 15:52 - CONCLUSION: Extensive abnormal T2 signal throughout the white matter. In the appropriate clinical setting this would suggest a demyelinative process. Tin Zamudio MD Chest X-Ray 09/01/16 0324 Signed Impressions: Service Date/Time: Thursday, September 01, 2016 03:36 - CONCLUSION: Questionable early airspace disease right lower lobe could be a small area of pneumonia.. Xavi Mejia MD Objective Remarks GENERAL: NAD, A&Ox2 SKIN: Warm and dry. HEAD: Normocephalic. EYES: No scleral icterus. No injection or drainage. NECK: Supple, trachea midline. No JVD or lymphadenopathy. CARDIOVASCULAR: Regular rate and rhythm without murmurs, gallops, or rubs. RESPIRATORY: Breath sounds equal bilaterally. No accessory muscle use. GASTROINTESTINAL: Abdomen soft, non-tender, nondistended. MUSCULOSKELETAL: No cyanosis, or edema. Lower extremity weakness A/P Problem List: (1) Exacerbation of multiple sclerosis ICD Code: G35 Status: Acute (2) Multiple sclerosis ICD Code: G35 Status: Acute (3) Generalized weakness ICD Code: R53.1 Status: Acute Assessment and Plan 41-year-old male admitted with multiple sclerosis exacerbation Multiple sclerosis with exacerbation On IV steroids Monitor neurologic status MRI of brain reviewed Extensive abnormal T2 signal throughout the white matter. In the appropriate clinical setting this would suggest a demyelinative process. Neurochecks Physical therapy Follow for improvement Consult neurology . Recommends MRI spine Hyperglycemia: BS elevated 2/2 steroid use. will ass accu and ISS Suspected depression Possible suicidal ideology, psychiatry consulted DVT prophylaxis SCDs given fall risk Discussed with the patient., nurse,. Sis Spaulding MD Sep 03, 2016 13:59
[2016-09-03] MEDS ORDERED: DEXTROSE 50% IN WATER 50 ML VIAL(D50) IV PRN (14:00)
[2016-09-03] MEDS ORDERED: GLUCAGON 1 MG/ML VIAL OTHER PRN (14:00)
[2016-09-03] MEDS ORDERED: SOD PHOSPHATE/SOD BIPHOSPHATE (ADULT) ENEMA 133ML RECTAL PRN (15:00)
[2016-09-03] MEDS ORDERED: GADODIAMIDE PF 287 MG/ML 20 ML VIAL (for RAD MRI) IV ONE (15:25)
--- NOTE | 2016-09-03 15:25 | RADRPT ---
EXAM DATE/TIME: 09/03/2016 13:51 [facility] COMPARISON: No previous studies available for comparison. INDICATIONS : Multiple sclerosis. Back pain. CONTRAST: 20 cc Omniscan (gadodiamide) IV MEDICAL HISTORY : Multiple sclerosis. SURGICAL HISTORY : None. ENCOUNTER: Subsequent ACUITY: 4-6 days PAIN SCORE: 7/10 LOCATION: Back TECHNIQUE: Multiplanar multisequence MRI of the thoracic spine was performed. FINDINGS: By MRI marrow signal in thoracic vertebrae appear homogeneous and normal. There is abundant epidural fat present. On T1 where the acquisition is patchy areas of increased signal intensity are seen in the thoracic co rd worse at T9-T10. Following intravenous administration of gadolinium there is minimal epidural enhancement. There is n o enhancement within the cord. CONCLUSION: Abnormal signal within the thoracic cord. Given the history of multiple sclerosis this would be the m ost likely diagnosis. This is most significant towards the conus. There is no evidence for expansio n of the cord to suggest a mass lesion. Eduardo Zamudio MD FACR on September 03, 2016 at 15:14 Board Certified Radiologist. This report was verified electronically.
--- NOTE | 2016-09-03 15:45 | RADRPT ---
EXAM DATE/TIME: 09/03/2016 13:51 [facility] COMPARISON: No previous studies available for comparison. INDICATIONS : Multiple sclerosis. Back pain. CONTRAST: 20 cc Omniscan (gadodiamide) IV MEDICAL HISTORY : Multiple sclerosis. SURGICAL HISTORY : None. ENCOUNTER: Subsequent ACUITY: 4-6 days PAIN SCORE: 7/10 LOCATION: back TECHNIQUE: Multiplanar, multisequence MRI examination of the cervical spine was performed. FINDINGS: Patchy areas of increased signal are seen at the cervical cranial junction, posteriorly to C4 and C6 without cord expansion. Similar findings are seen in the thoracic spine. There is no evidence for disc herniation. Cerebellar tonsils are in normal anatomic position. CONCLUSION: Abnormal signal in the cervical cord consistent with a demyelinating process. Eduardo Zamudio MD FACR on September 03, 2016 at 15:19 Board Certified Radiologist. This report was verified electronically.
[2016-09-03 16:00] VITALS: BP 131/78; PULSE 80; RESP 16; TEMP 98; O2SAT 93
[2016-09-03] MEDS: INSULIN ASPART SUPPLEMENTAL SCALE SQ SCH ×2 (16:00→22:02)
[2016-09-03] MEDS: LACTULOSE SYRUP 20 GM/30 ML CUP PO PRN (17:31)
[2016-09-03 20:00] VITALS: BP 135/71; PULSE 71; RESP 20; TEMP 96.1; O2SAT 95
[2016-09-03] MEDS: OLANZapine ODT 5 MG TAB PO SCH (21:56)
[2016-09-04] VITALS: BP 137/81; PULSE 71; RESP 22; TEMP 96.6; O2SAT 97
[2016-09-04] MEDS: methylPREDNISolone SOD SUCC 125 MG/2 ML VIAL IV SCH ×4 (00:21→19:15)
[2016-09-04] MEDS: HEPARIN SODIUM - SQ 10,000 UNITS/ML VIAL SQ SCH ×3 (06:46→21:59)
[2016-09-04] MEDS: INSULIN ASPART SUPPLEMENTAL SCALE SQ SCH ×4 (07:00→22:02)
[2016-09-04 08:00] VITALS: BP 122/70; PULSE 70; RESP 18; TEMP 97.3; O2SAT 92
[2016-09-04] MEDS: SODIUM CHLORIDE 0.9% FLUSH 10 ML FLUSH IV FLUSH SCH ×2 (09:00→21:00)
[2016-09-04] MEDS: SENNOSIDES 8.6 MG TAB PO PRN (10:26)
[2016-09-04] MEDS: LACTULOSE SYRUP 20 GM/30 ML CUP PO PRN (10:26)
[2016-09-04] MEDS: PANTOPRAZOLE SOD 40 MG DELAYED RELEASE TAB PO SCH (10:26)
[2016-09-04] MEDS: DOCUSATE SODIUM 50 MG/SENNA 8.6 MG TAB PO SCH ×2 (10:26→21:58)
[2016-09-04] MEDS: MAGNESIUM HYDROXIDE SUSP 30 ML CUP PO PRN (10:26)
[2016-09-04] MEDS: OLANZapine ODT 5 MG TAB PO SCH ×2 (10:26→21:58)
[2016-09-04] MEDS: oxyCODONE/ACETAMINOPHEN 10 MG/325 MG TAB PO PRN (10:35)
[2016-09-04 12:00] VITALS: BP 124/57; PULSE 77; RESP 18; TEMP 97.6; O2SAT 94
[2016-09-04 16:00] VITALS: BP 117/71; PULSE 51; RESP 18; TEMP 96.5; O2SAT 98
--- NOTE | 2016-09-04 16:18 | HHI.PR ---
Subjective Remarks In bed. He says is not able to move. Says his legs are stiff. Otherwise normal deficit. Denies chest pain, shortness of breath, nausea, vomiting, diarrhea. Objective Vitals Vital Signs Date Time Temp Pulse Resp B/P Pulse Ox O2 Delivery O2 Flow Rate FiO2 09/04/16 12:00 97.6 77 18 124/57 94 09/04/16 08:00 97.3 70 18 122/70 92 09/04/16 00:00 96.6 71 22 137/81 97 09/03/16 20:00 96.1 71 20 135/71 95 I/O 09/03/16 09/03/16 09/03/16 09/04/16 09/04/16 09/04/16 07:00 15:00 23:00 07:00 15:00 23:00 Intake Total 780 ml 600 ml 780 ml 780 ml Output Total 1500 ml 1200 ml Balance -720 ml -600 ml 780 ml 780 ml Intake Oral 780 ml 600 ml 780 ml 780 ml Output Urine Total 1500 ml 1200 ml # Voids 5 3 # Bowel Movements 0 0 0 0 Result Diagram: 09/02/16 0529 09/02/16 0529 Imaging Last Impressions Thoracic Spine MRI 09/03/16 0000 Signed Impressions: Service Date/Time: Saturday, September 03, 2016 13:51 - CONCLUSION: Abnormal signal within the thoracic cord. Given the history of multiple sclerosis this would be the most likely diagnosis. This is most significant towards the conus. There is no evidence for expansion of the cord to suggest a mass lesion. Eduardo Zamudio MD FACR Cervical Spine MRI 09/03/16 0000 Signed Impressions: Service Date/Time: Saturday, September 03, 2016 13:51 - CONCLUSION: Abnormal signal in the cervical cord consistent with a demyelinating process. Eduardo Zamudio MD FACR Brain MRI 09/02/16 0000 Signed Impressions: Service Date/Time: August 15:52 - CONCLUSION: Extensive abnormal T2 signal throughout the white matter. In the appropriate clinical setting this would suggest a demyelinative process. Tin Zamudio MD Chest X-Ray 09/01/16 0324 Signed Impressions: Service Date/Time: Thursday, September 01, 2016 03:36 - CONCLUSION: Questionable early airspace disease right lower lobe could be a small area of pneumonia.. Xavi A. Sevigny, MD Objective Remarks GENERAL: NAD, A&Ox2 SKIN: Warm and dry. HEAD: Normocephalic. EYES: No scleral icterus. No injection or drainage. NECK: Supple, trachea midline. No JVD or lymphadenopathy. CARDIOVASCULAR: Regular rate and rhythm without murmurs, gallops, or rubs. RESPIRATORY: Breath sounds equal bilaterally. No accessory muscle use. GASTROINTESTINAL: Abdomen soft, non-tender, nondistended. MUSCULOSKELETAL: No cyanosis, or edema. Lower extremity weakness A/P Problem List: (1) Exacerbation of multiple sclerosis ICD Code: G35 Status: Acute (2) Multiple sclerosis ICD Code: G35 Status: Acute (3) Generalized weakness ICD Code: R53.1 Status: Acute Assessment and Plan 41-year-old male admitted with multiple sclerosis exacerbation Multiple sclerosis with exacerbation On IV steroids Monitor neurologic status MRI of brain reviewed Extensive abnormal T2 signal throughout the white matter. In the appropriate clinical setting this would suggest a demyelinative process. MRI spine reviewed Abnormal signal within the thoracic cord. Given the history of multiple sclerosis this would be the most likely diagnosis. This is most significant towards the conus. There is no evidence for expansion of the cord to suggest a mass lesion. Neurochecks Physical therapy Follow for improvement Consult neurology . Recommends MRI spine Hyperglycemia: BS elevated 2/2 steroid use. will ass accu and ISS Suspected depression Possible suicidal ideology, psychiatry consulted DVT prophylaxis SCDs given fall risk Discussed with the patient, nurse. DC plan: Difficult DC as patient is homeless. Patient however needs SNF. Case management consult, following Sis Spaulding MD Sep 04, 2016 16:18
[2016-09-04 20:25] VITALS: BP 119/57; PULSE 52; RESP 16; TEMP 97.3; O2SAT 95
[2016-09-05 00:20] VITALS: BP 121/70; PULSE 60; RESP 17; TEMP 96.8; O2SAT 95
[2016-09-05] MEDS: methylPREDNISolone SOD SUCC 125 MG/2 ML VIAL IV SCH ×3 (00:35→12:00)
[2016-09-05] MEDS: INSULIN ASPART SUPPLEMENTAL SCALE SQ SCH ×3 (06:10→17:45)
[2016-09-05] MEDS: HEPARIN SODIUM - SQ 10,000 UNITS/ML VIAL SQ SCH ×3 (06:11→21:24)
[2016-09-05 08:00] VITALS: BP 117/65; PULSE 63; RESP 18; TEMP 96.8; O2SAT 97
[2016-09-05] MEDS: PANTOPRAZOLE SOD 40 MG DELAYED RELEASE TAB PO SCH (09:44)
[2016-09-05] MEDS: OLANZapine ODT 5 MG TAB PO SCH ×2 (09:44→21:23)
[2016-09-05] MEDS: DOCUSATE SODIUM 50 MG/SENNA 8.6 MG TAB PO SCH ×2 (09:44→21:00)
[2016-09-05] MEDS: SODIUM CHLORIDE 0.9% FLUSH 10 ML FLUSH IV FLUSH SCH ×2 (09:44→21:00)
[2016-09-05 12:00] VITALS: BP 121/60; PULSE 70; RESP 18; TEMP 97.1; O2SAT 95
--- NOTE | 2016-09-05 15:20 | HHI.PR ---
Subjective Remarks Improved orientation and patient has actually ambulated though he is unsteady on his feet. She does not appear fully oriented 100 talk with him. He repeats a lot. He has a hard time sticking to the topic. Objective Vital Signs Date Time Temp Pulse Resp B/P Pulse Ox O2 Delivery O2 Flow Rate FiO2 09/05/16 12:00 97.1 70 18 121/60 95 09/05/16 08:00 96.8 63 18 117/65 97 09/05/16 00:20 96.8 60 17 121/70 95 09/04/16 20:25 97.3 52 16 119/57 95 09/04/16 16:00 96.5 51 18 117/71 98 I/O 09/04/16 09/04/16 09/04/16 09/05/16 09/05/16 09/05/16 07:00 15:00 23:00 07:00 15:00 23:00 Intake Total 780 ml 980 ml 240 ml 240 ml Output Total 800 ml Balance 780 ml 980 ml 240 ml -560 ml Intake Oral 780 ml 980 ml 240 ml 240 ml Output Urine Total 800 ml # Voids 3 3 0 # Bowel Movements 0 2 0 0 Result Diagram: 09/02/1652809/02/16528 Objective Remarks GENERAL: NAD, A&Ox2 HEAD: Normocephalic. NECK: Supple, trachea midline. No lymphadenopathy. EYES: No scleral icterus. No injection or drainage. CARDIOVASCULAR: Regular rate and rhythm without murmurs, gallops, or rubs. RESPIRATORY: Breath sounds equal bilaterally. No accessory muscle use. GASTROINTESTINAL: Abdomen soft, non-tender, nondistended. MUSCULOSKELETAL: No cyanosis, or edema. SKIN: Warm and dry. NEURO: Bilateral lower extremity weakness A/P Problem List: (1) Brief psychotic disorder ICD Code: F23 (2) Exacerbation of multiple sclerosis ICD Code: G35 (3) Multiple sclerosis ICD Code: G35 (4) Generalized weakness ICD Code: R53.1 Assessment and Plan Assessment and plan 41-year-old male admitted with multiple sclerosis exacerbation and acute psychosis (likely related). Multiple sclerosis with exacerbation Discontinue IV steroids given he has completed his 34 day treatment course of high-dose steroids Neurology following Continue physical therapy Hyperglycemia: Resolved Acute psychosis Improved Continue Zyprexa psychiatry consulted follow clinically DVT prophylaxis SCDs given fall risk Tin Gutierrez MD Sep 05, 2016 15:20
[2016-09-05 16:00] VITALS: BP 117/67; PULSE 60; RESP 18; TEMP 97.2; O2SAT 94
[2016-09-05 20:20] VITALS: BP 135/75; PULSE 63; RESP 17; TEMP 97.8; O2SAT 96
[2016-09-06 00:15] VITALS: BP 135/69; PULSE 72; RESP 17; TEMP 98.2; O2SAT 96
[2016-09-06] MEDS: HEPARIN SODIUM - SQ 10,000 UNITS/ML VIAL SQ SCH ×3 (06:22→22:11)
[2016-09-06] MEDS: OLANZapine ODT 5 MG TAB PO SCH ×2 (07:49→19:47)
[2016-09-06] MEDS: DOCUSATE SODIUM 50 MG/SENNA 8.6 MG TAB PO SCH ×2 (07:49→19:47)
[2016-09-06] MEDS: PANTOPRAZOLE SOD 40 MG DELAYED RELEASE TAB PO SCH (07:49)
[2016-09-06] MEDS: SODIUM CHLORIDE 0.9% FLUSH 10 ML FLUSH IV FLUSH SCH ×2 (07:50→19:47)
[2016-09-06 08:00] VITALS: BP 130/67; PULSE 52; RESP 20; TEMP 97.6; O2SAT 96
--- NOTE | 2016-09-06 10:05 | HHI.PR ---
Subjective Remarks Follow up. Patient laying in bed finishing up breakfast. His orientation is improving. States he does not walk with PT, states they do not do anything for him. He states he had a BM yesterday and feels much better. He denies any chest pain, sob, fever or chills. Objective Vitals Vital Signs Date Time Temp Pulse Resp B/P Pulse Ox O2 Delivery O2 Flow Rate FiO2 09/06/16 08:00 97.6 52 20 130/67 96 09/06/16 00:15 98.2 72 17 135/69 96 09/05/16 20:20 97.8 63 17 135/75 96 09/05/16 16:00 97.2 60 18 117/67 94 09/05/16 12:00 97.1 70 18 121/60 95 I/O 09/05/16 09/05/16 09/05/16 09/06/16 09/06/16 09/06/16 07:00 15:00 23:00 07:00 15:00 23:00 Intake Total 240 ml 960 ml 240 ml 240 ml Output Total 800 ml 350 ml 450 ml 400 ml Balance -560 ml 610 ml -210 ml -160 ml Intake Oral 240 ml 960 ml 240 ml 240 ml Output Urine Total 800 ml 350 ml 450 ml 400 ml # Bowel Movements 0 1 0 Result Diagram: 09/02/1652809/02/16528 Objective Remarks GENERAL: Well nourished patient in NAD SKIN: Warm and dry. HEAD: Atraumatic. Normocephalic. EYES: Pupils equal and round. No scleral icterus. No injection or drainage. ENT: No nasal bleeding or discharge. Mucous membranes pink and moist. NECK: Trachea midline. No JVD. CARDIOVASCULAR: Regular rate and rhythm. RESPIRATORY: No accessory muscle use. Clear to auscultation. Breath sounds equal bilaterally. GASTROINTESTINAL: Abdomen soft, non-tender, nondistended.BM yesterday. MUSCULOSKELETAL: Extremities without clubbing, cyanosis, or edema. No obvious deformities. NEUROLOGICAL: Awake and alert 2-3. Motor grossly within normal limits. Normal speech. Bilateral lower extremity weakness PSYCHIATRIC: Appropriate mood and affect; insight and judgment normal. Medications and IVs Current Medications Medications (Trade) Dose Ordered Sig/Sabine Route Start Time Stop Time Status Last Admin (NS Flush) 2 ml UNSCH PRN IV FLUSH 09/01/16 05:15 (NS Flush) 2 ml BID IV FLUSH 09/01/16 09:00 09/06/16 07:50 (Tylenol) 650 mg Q4H PRN PO 09/01/16 05:15 (Zofran Inj) 4 mg Q6H PRN IVP 09/01/16 05:15 (Heparin Inj) 5,000 units Q8H SQ 09/01/16 06:00 09/06/16 06:22 (Narcan Inj) 0.4 mg UNSCH PRN IV 09/01/16 05:15 (Herlinda-Colace) 1 tab BID PO 09/01/16 09:00 09/06/16 07:49 (Milk Of Magnesia Liq) 30 ml Q12H PRN PO 09/01/16 05:15 09/04/16 10:26 (Senokot) 17.2 mg Q12H PRN PO 09/01/16 05:15 09/04/16 10:26 (Percocet 5-325 Mg) 1 tab Q6H PRN PO 09/01/16 05:15 (Percocet 10-325 Mg) 1 tab Q6H PRN PO 09/01/16 05:15 09/04/16 10:35 (Morphine Inj) 2 mg Q3H PRN IV 09/01/16 05:15 (Morphine Inj) 4 mg Q3H PRN IV 09/01/16 05:15 (Protonix) 40 mg DAILY PO 09/03/16 09:00 09/06/16 07:49 (ZyPREXA ZYDIS ODT) 5 mg BID PO 09/03/16 21:00 09/06/16 07:49 (Lactulose Liq) 30 ml QID PRN PO 09/03/16 15:00 09/04/16 10:26 (Fleets Enema (Adult)) 133 ml Q24H PRN RECTAL 09/03/16 15:00 A/P Problem List: (1) Exacerbation of multiple sclerosis ICD Code: G35 Status: Acute (2) Multiple sclerosis ICD Code: G35 Status: Acute (3) Generalized weakness ICD Code: R53.1 Status: Acute Assessment and Plan 41-year-old male admitted with multiple sclerosis exacerbation and acute psychosis (likely related). Multiple sclerosis with exacerbation, completed steroids -Neurology following, recommends outpatient rehab -Continue daily physical therapy Hyperglycemia, resolved, likely steroid related -Follow blood sugars on labs Acute psychosis, improving -Continue Zyprexa -psychiatry has signed off, would like to be reconsulted if patent starts to refuse medications. DVT prophylaxis: SCDs given fall risk Discharge Planning 09/05/16-Pending placement, pt to be evaluated for PASSR Level 2 before placement can be determined Kailyn Hollins Sep 06, 2016 10:05 Kailyn Hollins Sep 06, 2016 10:05
[2016-09-06 12:37] VITALS: BP 111/62; PULSE 74; RESP 20; TEMP 98; O2SAT 97
[2016-09-06 16:00] VITALS: BP 110/62; PULSE 85; RESP 20; TEMP 96.6; O2SAT 95
[2016-09-06 20:15] VITALS: BP 126/70; PULSE 52; RESP 18; TEMP 98; O2SAT 96
[2016-09-06 22:00] VITALS: BP 110/67; PULSE 63; RESP 21; TEMP 98; O2SAT 98
[2016-09-07] MEDS: HEPARIN SODIUM - SQ 10,000 UNITS/ML VIAL SQ SCH ×3 (05:21→21:14)
[2016-09-07 05:50] VITALS: BP 110/61; PULSE 65; RESP 21; TEMP 96.7; O2SAT 100
[2016-09-07 08:00] VITALS: BP 138/76; PULSE 62; RESP 17; TEMP 98.1; O2SAT 96
[2016-09-07] MEDS: SODIUM CHLORIDE 0.9% FLUSH 10 ML FLUSH IV FLUSH SCH ×2 (09:00→21:14)
[2016-09-07] MEDS: OLANZapine ODT 5 MG TAB PO SCH ×2 (09:07→21:13)
[2016-09-07] MEDS: PANTOPRAZOLE SOD 40 MG DELAYED RELEASE TAB PO SCH (09:07)
[2016-09-07] MEDS: DOCUSATE SODIUM 50 MG/SENNA 8.6 MG TAB PO SCH ×2 (09:07→21:14)
--- NOTE | 2016-09-07 10:10 | HHI.PR ---
Subjective Remarks Follow-up for MS exacerbation, psychosis. Patient states his back hurts. He states he had a bowel movement the day before yesterday. Objective Vitals Vital Signs Date Time Temp Pulse Resp B/P Pulse Ox O2 Delivery O2 Flow Rate FiO2 09/07/16 08:00 98.1 62 17 138/76 96 09/07/16 07:05 97 Room Air 09/07/16 05:50 96.7 65 21 110/61 100 09/06/16 22:00 98.0 63 21 110/67 98 09/06/16 22:00 98 Room Air 09/06/16 20:15 98.0 52 18 126/70 96 09/06/16 18:49 Room Air 09/06/16 16:00 96.6 85 20 110/62 95 09/06/16 12:37 98.0 74 20 111/62 97 I/O 09/06/16 09/06/16 09/06/16 09/07/16 09/07/16 09/07/16 07:00 15:00 23:00 07:00 15:00 23:00 Intake Total 240 ml 960 ml 240 ml 240 ml Output Total 400 ml 400 ml 225 ml 400 ml 350 ml Balance -160 ml 560 ml 15 ml -160 ml -350 ml Intake Oral 240 ml 960 ml 240 ml 240 ml Output Urine Total 400 ml 400 ml 225 ml 400 ml 350 ml # Bowel Movements 0 Objective Remarks GENERAL: Tall, well-nourished, well-developed patient in apparent distress. SKIN: Warm and dry. HEAD: Atraumatic. Normocephalic. CARDIOVASCULAR: Regular rate and rhythm. RESPIRATORY: No accessory muscle use. Clear to auscultation. Breath sounds equal bilaterally. GASTROINTESTINAL: Abdomen soft, non-tender, nondistended. Indurated area over left lower abdomen from injections. BACK: Tender over right thoracic and lumbar muscles although also flinches with palpation on the left although he states it is non-tender in this area. NEUROLOGICAL: Awake and alert. Habilitation Assistant strength 4+/5 bilaterally. R foot weaker than L. Motor grossly within normal limits. Normal speech. PSYCHIATRIC: Appropriate mood and affect. Urinary Catheter: No Vascular Central Line Catheter: No A/P Problem List: (1) Exacerbation of multiple sclerosis ICD Code: G35 Status: Acute (2) Brief psychotic disorder ICD Code: F23 Status: Acute Assessment and Plan 41-year-old male admitted with multiple sclerosis exacerbation and acute psychosis (likely related). Multiple sclerosis with exacerbation: -Completed steroids -Neurology following, recommends outpatient rehab -Continue daily physical therapy -Has not used Percocet since 09/04, will discontinue. Does c/o back pain today. Order [place] 5/325 mg q12h only prn for pain 4-10. Hyperglycemia: Resolved, likely steroid related Acute psychosis: Improving -Continue Zyprexa -Psychiatry has signed off, but would like to be reconsulted if patent starts to refuse medications. GI prophylaxis: Continue bowel regimen. Had BM today. DVT prophylaxis: SCDs given fall risk Discharge Planning 09/05/16: Pending placement, pt to be evaluated for PASSR Level 2 before placement can be determined. Yuli Marte Sep 07, 2016 10:10
[2016-09-07 12:05] VITALS: BP 138/76; PULSE 62; RESP 17; TEMP 98.1; O2SAT 96
[2016-09-07 20:10] VITALS: BP 121/76; PULSE 60; RESP 19; TEMP 97.1; O2SAT 98
[2016-09-07] MEDS: ACETAMINOPHEN/HYDROcodone 325 MG/5 MG TAB PO PRN (21:21)
[2016-09-08] MEDS: HEPARIN SODIUM - SQ 10,000 UNITS/ML VIAL SQ SCH ×3 (06:18→21:20)
[2016-09-08] MEDS: DOCUSATE SODIUM 50 MG/SENNA 8.6 MG TAB PO SCH ×2 (08:16→21:00)
[2016-09-08] MEDS: OLANZapine ODT 5 MG TAB PO SCH ×2 (08:16→21:20)
[2016-09-08] MEDS: PANTOPRAZOLE SOD 40 MG DELAYED RELEASE TAB PO SCH (08:16)
[2016-09-08] MEDS: SODIUM CHLORIDE 0.9% FLUSH 10 ML FLUSH IV FLUSH SCH ×2 (08:17→21:00)
[2016-09-08] MEDS: ACETAMINOPHEN/HYDROcodone 325 MG/5 MG TAB PO PRN ×2 (08:20→21:20)
--- NOTE | 2016-09-08 13:30 | HHI.PR ---
Subjective Remarks Follow up for MS exacerbation, psychosis. Patient has no acute complaints. Objective Vitals Vital Signs Date Time Temp Pulse Resp B/P Pulse Ox O2 Delivery O2 Flow Rate FiO2 09/08/16 09:44 99 Room Air 09/08/16 09:30 14 09/07/16 20:10 97.1 60 19 121/76 98 09/07/16 19:13 98 Room Air I/O 09/07/16 09/07/16 09/07/16 09/08/16 09/08/16 09/08/16 07:00 15:00 23:00 07:00 15:00 23:00 Intake Total 240 ml 240 ml Output Total 400 ml 750 ml 400 ml Balance -160 ml -750 ml -160 ml Intake Oral 240 ml 240 ml Output Urine Total 400 ml 750 ml 400 ml # Bowel Movements 1 Objective Remarks GENERAL: Tall, well-nourished, well-developed patient in apparent distress sitting in wheelchair in room. SKIN: Warm and dry. CARDIOVASCULAR: Regular rate and rhythm. RESPIRATORY: No accessory muscle use. Clear to auscultation. Breath sounds equal bilaterally. GASTROINTESTINAL: Abdomen soft, non-tender, nondistended. NEUROLOGICAL: Awake and alert. Only partially oriented. Patient does not know the city. He knows the month but it takes him some time to think of it. He states the year is 2018. He knows the president. Normal speech. PSYCHIATRIC: Appropriate mood and affect. Urinary Catheter: No Vascular Central Line Catheter: No A/P Problem List: (1) Exacerbation of multiple sclerosis ICD Code: G35 Status: Acute (2) Brief psychotic disorder ICD Code: F23 Status: Acute Assessment and Plan 41-year-old male admitted with multiple sclerosis exacerbation and acute psychosis (likely related). Multiple sclerosis with exacerbation: -Completed steroids -Neurology following, recommends outpatient rehab -Continue daily physical therapy -[place] 5/325 mg q12h only prn for pain 4-10. Percocet was discontinued. Hyperglycemia: Resolved, likely steroid related Acute psychosis: Stable -Continue Zyprexa -Psychiatry has signed off, but would like to be reconsulted if patent starts to refuse medications. -09/08: Nurse reported patient had smeared fecal matter over the valadez of the bathroom yesterday. He still has some disorientation. GI prophylaxis: Continue bowel regimen. DVT prophylaxis: SCDs given fall risk Discharge Planning 09/08/16: Per CM, pt is to be evaluated for PASSR Level 2 before placement can be determined. [id number] signed. Yuli Marte Sep 08, 2016 13:30
[2016-09-08 20:06] VITALS: BP 115/68; PULSE 79; RESP 16; TEMP 98.8; O2SAT 98
[2016-09-09] MEDS: HEPARIN SODIUM - SQ 10,000 UNITS/ML VIAL SQ SCH ×3 (06:01→21:02)
[2016-09-09 08:00] VITALS: BP 121/63; PULSE 98; RESP 18; TEMP 98.5; O2SAT 97
[2016-09-09] MEDS: SODIUM CHLORIDE 0.9% FLUSH 10 ML FLUSH IV FLUSH SCH ×2 (09:00→20:54)
[2016-09-09] MEDS: PANTOPRAZOLE SOD 40 MG DELAYED RELEASE TAB PO SCH (09:27)
[2016-09-09] MEDS: DOCUSATE SODIUM 50 MG/SENNA 8.6 MG TAB PO SCH ×2 (09:27→20:53)
[2016-09-09] MEDS: ACETAMINOPHEN/HYDROcodone 325 MG/5 MG TAB PO PRN ×2 (09:28→20:52)
[2016-09-09] MEDS: OLANZapine ODT 5 MG TAB PO SCH ×2 (09:28→20:50)
--- NOTE | 2016-09-09 11:13 | HHI.PR ---
Subjective Remarks Follow up for MS exacerbation, psychosis. Patient has no acute complaints. Objective Vitals Vital Signs Date Time Temp Pulse Resp B/P Pulse Ox O2 Delivery O2 Flow Rate FiO2 09/09/16 08:00 98.5 98 18 121/63 97 09/08/16 20:06 98.8 79 16 115/68 98 09/08/16 19:00 98 Room Air I/O 09/08/16 09/08/16 09/08/16 09/09/16 09/09/16 09/09/16 07:00 15:00 23:00 07:00 15:00 23:00 Intake Total 1200 ml Balance 1200 ml Intake Oral 1200 ml # Voids 2 # Bowel Movements 0 Objective Remarks GENERAL: Well-nourished, well-developed patient in apparent distress sitting in wheelchair in room. SKIN: Warm and dry. CARDIOVASCULAR: Regular rate and rhythm. RESPIRATORY: No accessory muscle use. Clear to auscultation. Breath sounds equal bilaterally. GASTROINTESTINAL: Abdomen soft, non-tender, nondistended. NEUROLOGICAL: Awake and alert. Patient does not know the city, month, nor the year. He knows he is at the hospital in [place] and knows the president. Normal speech. 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 PSYCHIATRIC: Appropriate mood and affect. Urinary Catheter: No Vascular Central Line Catheter: No A/P Problem List: (1) Exacerbation of multiple sclerosis ICD Code: G35 Status: Acute (2) Brief psychotic disorder ICD Code: F23 Status: Acute Assessment and Plan 41-year-old male admitted with multiple sclerosis exacerbation and acute psychosis (likely related). Multiple sclerosis with exacerbation: -Completed steroids -Neurology following, recommends outpatient rehab -Continue OT and PT -[place] 5/325 mg q12h only prn for pain 4-10. Percocet was discontinued. Hyperglycemia: Resolved, likely steroid related Acute psychosis: Stable -Continue Zyprexa -Psychiatry has signed off, but would like to be reconsulted if patent starts to refuse medications. -09/07: Nurse reported patient had smeared fecal matter over the valadez of the bathroom. -Patient is still disoriented. Unsure if this is baseline, psychosis related, or MS related. Will obtain speech therapy cognitive evaluation for more thorough assessment. GI prophylaxis: Continue bowel regimen. DVT prophylaxis: SCDs given fall risk Discharge Planning 09/08/16: Per CM, pt is to be evaluated for PASSR Level 2 before placement can be determined. [id number] signed. Yuli Marte Sep 09, 2016 11:13
[2016-09-09 20:00] VITALS: BP 106/93; PULSE 81; RESP 16; TEMP 98; O2SAT 97
[2016-09-10] MEDS: HEPARIN SODIUM - SQ 10,000 UNITS/ML VIAL SQ SCH ×3 (05:09→21:29)
[2016-09-10] MEDS: SODIUM CHLORIDE 0.9% FLUSH 10 ML FLUSH IV FLUSH SCH ×2 (09:00→21:00)
[2016-09-10] MEDS: DOCUSATE SODIUM 50 MG/SENNA 8.6 MG TAB PO SCH ×2 (09:00→21:00)
[2016-09-10] MEDS: PANTOPRAZOLE SOD 40 MG DELAYED RELEASE TAB PO SCH (09:06)
[2016-09-10] MEDS: OLANZapine ODT 5 MG TAB PO SCH ×2 (09:06→21:22)
[2016-09-10 09:47] VITALS: BP 104/76; PULSE 66; RESP 14; TEMP 97.4; O2SAT 100
--- NOTE | 2016-09-10 11:58 | HHI.PR ---
Subjective Remarks Follow-up for MS, psychosis. Patient states his right knee is stiff admitting to an old injury. He states his knees are swollen. He is wondering when he is going to get treatment for his MS although I explained to him that his MS exacerbation has been treated with steroids. Objective Vitals Vital Signs Date Time Temp Pulse Resp B/P Pulse Ox O2 Delivery O2 Flow Rate FiO2 09/10/16 09:47 97.4 66 14 104/76 100 09/09/16 21:52 16 09/09/16 20:00 98.0 81 16 106/93 97 09/09/16 19:00 Room Air I/O 09/09/16 09/09/16 09/09/16 09/10/16 09/10/16 09/10/16 07:00 15:00 23:00 07:00 15:00 23:00 Intake Total 1250 ml 720 ml 720 ml Output Total 1850 ml 1000 ml 2400 ml Balance -600 ml -280 ml -1680 ml Intake Oral 1250 ml 720 ml 720 ml Output Urine Total 1850 ml 1000 ml 2400 ml # Bowel Movements 1 0 0 Objective Remarks GENERAL: Well-nourished, well-developed patient in apparent distress sitting in wheelchair. SKIN: Warm and dry. CARDIOVASCULAR: Regular rate and rhythm. RESPIRATORY: No accessory muscle use. Clear to auscultation. Breath sounds equal bilaterally. MUSCULOSKELETAL: No knee swelling bilaterally. Patient easily actively flexes L knee, but uses his hands to assist in flexing his R knee. NEUROLOGICAL: Awake and alert. Normal speech. 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 PSYCHIATRIC: Appropriate mood and affect. Urinary Catheter: No Vascular Central Line Catheter: No A/P Problem List: (1) Exacerbation of multiple sclerosis ICD Code: G35 Status: Acute (2) Brief psychotic disorder ICD Code: F23 Status: Acute (3) Cognitive impairment ICD Code: R41.89 Status: Acute Assessment and Plan 41-year-old male admitted with multiple sclerosis exacerbation and acute psychosis (likely related). Multiple sclerosis with exacerbation: -Completed steroids -Neurology following, recommends outpatient rehab -Continue OT and PT -[place] 5/325 mg q12h only prn for pain 4-10. Percocet was discontinued. -09/10: Patient complained of R knee pain and swelling but no swelling on exam. I spoke with physical therapist who states patient turns his right knee inward when he walks, attributed to MS, putting pressure on joint. Acute psychosis: Stable -Continue Zyprexa -Psychiatry has signed off, but would like to be reconsulted if patent starts to refuse medications. -09/07: Nurse reported patient had smeared fecal matter over the valadez of the bathroom. Cognitive impairment: Patient is still disoriented. Unsure if this is baseline, psychosis related, or MS related. -Speech therapy assessed patient and he has MOCA score of 12/30 indicating moderate to severe cognitive impairment. Hyperglycemia: Resolved, likely steroid related GI prophylaxis: Continue bowel regimen. DVT prophylaxis: SCDs given fall risk Discharge Planning 09/08/16: Per CM, pt is to be evaluated for PASSR Level 2 before placement can be determined. [id number] signed. Yuli Marte Sep 10, 2016 11:58
[2016-09-10] MEDS: LACTULOSE SYRUP 20 GM/30 ML CUP PO PRN (16:09)
[2016-09-10 20:00] VITALS: BP 122/81; PULSE 82; RESP 18; TEMP 97.2; O2SAT 95
[2016-09-11] MEDS: HEPARIN SODIUM - SQ 10,000 UNITS/ML VIAL SQ SCH ×3 (06:33→21:10)
[2016-09-11 08:00] VITALS: BP 106/78; PULSE 88; RESP 20; TEMP 99; O2SAT 98
[2016-09-11] MEDS: SODIUM CHLORIDE 0.9% FLUSH 10 ML FLUSH IV FLUSH SCH ×2 (09:00→21:00)
--- NOTE | 2016-09-11 09:23 | HHI.PR ---
Subjective Remarks Follow-up for MS, psychosis. No acute complaints. Objective Vitals Vital Signs Date Time Temp Pulse Resp B/P Pulse Ox O2 Delivery O2 Flow Rate FiO2 09/10/16 20:00 97.2 82 18 122/81 95 09/10/16 19:00 Room Air 09/10/16 09:47 97.4 66 14 104/76 100 I/O 09/10/16 09/10/16 09/10/16 09/11/16 09/11/16 09/11/16 07:00 15:00 23:00 07:00 15:00 23:00 Intake Total 720 ml 1920 ml 480 ml Output Total 2400 ml 1450 ml Balance -1680 ml 1920 ml -970 ml Intake Oral 720 ml 1920 ml 480 ml Output Urine Total 2400 ml 1450 ml # Voids 5 # Bowel Movements 0 1 0 Objective Remarks GENERAL: Well-nourished, well-developed patient in apparent distress. CARDIOVASCULAR: Regular rate and rhythm. RESPIRATORY: No accessory muscle use. Clear to auscultation. Breath sounds equal bilaterally. NEUROLOGICAL: Awake and alert. Normal speech. Patient notes he is at [place] but does not know the year or city. 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 PSYCHIATRIC: Appropriate mood and affect. Urinary Catheter: No Vascular Central Line Catheter: No A/P Problem List: (1) Exacerbation of multiple sclerosis ICD Code: G35 Status: Acute (2) Brief psychotic disorder ICD Code: F23 Status: Acute (3) Cognitive impairment ICD Code: R41.89 Status: Acute Assessment and Plan 41-year-old male admitted with multiple sclerosis exacerbation and acute psychosis (likely related). Multiple sclerosis with exacerbation: -Completed steroids -Neurology following, recommends outpatient rehab -Continue OT and PT -[place] 5/325 mg q12h only prn for pain 4-10. Percocet was discontinued. -09/10: Patient complained of R knee pain and swelling but no swelling on exam. I spoke with physical therapist who states patient turns his right knee inward when he walks, attributed to MS, putting pressure on joint. Acute psychosis: Stable -Continue Zyprexa -Psychiatry has signed off, but would like to be reconsulted if patent starts to refuse medications. -09/07: Nurse reported patient had smeared fecal matter over the valadez of the bathroom. Cognitive impairment: Patient is still disoriented. Unsure if this is baseline, psychosis related, or MS related. -Speech therapy assessed patient and he has MOCA score of 12/30 indicating moderate to severe cognitive impairment. Hyperglycemia: Resolved, likely steroid related GI prophylaxis: Continue bowel regimen. DVT prophylaxis: SCDs given fall risk Discharge Planning 09/08/16: Per CM, pt is to be evaluated for PASSR Level 2 before placement can be determined. [id number] signed. Yuli Marte Sep 11, 2016 09:23
[2016-09-11] MEDS: OLANZapine ODT 5 MG TAB PO SCH ×2 (10:21→21:09)
[2016-09-11] MEDS: DOCUSATE SODIUM 50 MG/SENNA 8.6 MG TAB PO SCH ×2 (10:21→21:10)
[2016-09-11] MEDS: PANTOPRAZOLE SOD 40 MG DELAYED RELEASE TAB PO SCH (10:21)
[2016-09-11] MEDS: ACETAMINOPHEN/HYDROcodone 325 MG/5 MG TAB PO PRN ×2 (10:22→21:15)
[2016-09-11 20:00] VITALS: BP 132/71; PULSE 78; RESP 19; TEMP 97.8; O2SAT 97
[2016-09-12] MEDS: HEPARIN SODIUM - SQ 10,000 UNITS/ML VIAL SQ SCH ×3 (06:00→21:33)
[2016-09-12 08:00] VITALS: BP 126/77; PULSE 80; RESP 18; TEMP 97.7; O2SAT 97
[2016-09-12] MEDS: SODIUM CHLORIDE 0.9% FLUSH 10 ML FLUSH IV FLUSH SCH ×2 (09:00→20:38)
[2016-09-12] MEDS: DOCUSATE SODIUM 50 MG/SENNA 8.6 MG TAB PO SCH ×2 (09:00→21:32)
[2016-09-12] MEDS: OLANZapine ODT 5 MG TAB PO SCH ×2 (09:10→21:31)
[2016-09-12] MEDS: PANTOPRAZOLE SOD 40 MG DELAYED RELEASE TAB PO SCH (09:10)
[2016-09-12] MEDS: ACETAMINOPHEN/HYDROcodone 325 MG/5 MG TAB PO PRN ×2 (09:17→21:41)
--- NOTE | 2016-09-12 11:17 | HHI.PR ---
Subjective Remarks Follow-up for MS exacerbation, psychosis, cognitive impairment. Patient and nurse indicate he has an abscess to the right arm. Patient also complains of swelling to his right lower leg. Patient denies any fevers or chills. Objective Vitals Vital Signs Date Time Temp Pulse Resp B/P Pulse Ox O2 Delivery O2 Flow Rate FiO2 09/12/16 10:20 18 09/12/16 08:00 97.7 80 18 126/77 97 09/11/16 20:00 97.8 78 19 132/71 97 09/11/16 19:00 Room Air 21 09/11/16 11:59 Room Air 21 I/O 09/11/16 09/11/16 09/11/16 09/12/16 09/12/16 09/12/16 07:00 15:00 23:00 07:00 15:00 23:00 Intake Total 480 ml 700 ml 1320 ml 480 ml Output Total 1450 ml 800 ml 350 ml Balance -970 ml 700 ml 520 ml 130 ml Intake Oral 480 ml 700 ml 1320 ml 480 ml Output Urine Total 1450 ml 800 ml 350 ml # Voids 3 # Bowel Movements 0 Objective Remarks GENERAL: Well-nourished, well-developed patient in apparent distress. SKIN: There is an erythematous indurated area measuring a few centimeters in diameter to the dorsal surface of the right forearm just distal to the elbow with white discoloration and mild fluctuance at the elevation. There is light erythema surrounding the abscess, proximal to it. CARDIOVASCULAR: Regular rate and rhythm. RESPIRATORY: No accessory muscle use. Clear to auscultation. Breath sounds equal bilaterally. MUSCULOSKELETAL: Full flexion R elbow. There is nonpitting edema over both ankles. No calf pain bilaterally. 2+ DP pulses bilaterally. NEUROLOGICAL: Awake and alert. Normal speech. Patient does not know the month , year, or city. 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 PSYCHIATRIC: Appropriate mood and affect. Urinary Catheter: No Vascular Central Line Catheter: No A/P Problem List: (1) Abscess of right arm ICD Code: L02.413 Status: Acute (2) Exacerbation of multiple sclerosis ICD Code: G35 Status: Acute (3) Brief psychotic disorder ICD Code: F23 Status: Acute (4) Cognitive impairment ICD Code: R41.89 Status: Acute Assessment and Plan 41-year-old male admitted with multiple sclerosis exacerbation and acute psychosis (likely related). Abscess: Acute. Distal to R elbow. Afebrile. Dr. Smith has also examined patient. -Apply warm compresses to area to stimulate spontaneous drainage. Will reassess tomorrow. If not improving or worsens will need I&D performed. Order for nurse to collect wound culture if it drains. -Start Bactrim DS q12 hours Ankle swelling: Likely attributed to dependent positioning. Patient advised to elevate legs. Multiple sclerosis with exacerbation: exacerbation resolved. -Completed steroids -Neurology following, recommends outpatient rehab -Continue OT and PT -[place] 5/325 mg q12h only prn for pain 4-10. Percocet was discontinued. -09/10: Patient complained of R knee pain and swelling but no swelling on exam. I spoke with physical therapist who states patient turns his right knee inward when he walks, attributed to MS, putting pressure on joint. Acute psychosis: Stable -Continue Zyprexa -Psychiatry has signed off, but would like to be reconsulted if patent starts to refuse medications. Cognitive impairment: Stable. Patient is still disoriented. Unsure if this is baseline, psychosis related, or MS related. -Speech therapy assessed patient and he has MOCA score of 12/30 indicating moderate to severe cognitive impairment. Hyperglycemia: Resolved, likely steroid related GI prophylaxis: Continue bowel regimen. DVT prophylaxis: SCDs given fall risk Discharge Planning 09/08/16: Per CM, pt is to be evaluated for PASSR Level 2 before placement can be determined. [id number] signed. Attending Statement Patient seen and examined. Right forearm with swelling, induration, and central fluctuance just distal to the elbow. Area is tender. No open wound or drainage at this time. Patient states that it has drained previously and that he expressed pus from the wound. Start Bactrim. Warm compresses. May need I&D. Yuli Marte Sep 12, 2016 11:17 Adrien Smith MD Sep 12, 2016 13:29
[2016-09-12] MEDS ORDERED: SULFAMETHOXAZOLE-TRIMETHOPRIM DS 800-160 MG TAB PO ONE (12:00)
[2016-09-12 20:00] VITALS: BP 116/80; PULSE 80; RESP 19; TEMP 97.2; O2SAT 98
[2016-09-12] MEDS: SULFAMETHOXAZOLE-TRIMETHOPRIM DS 800-160 MG TAB PO SCH (21:31)
[2016-09-13] MEDS: HEPARIN SODIUM - SQ 10,000 UNITS/ML VIAL SQ SCH ×3 (06:39→21:41)
[2016-09-13] MEDS: DOCUSATE SODIUM 50 MG/SENNA 8.6 MG TAB PO SCH ×2 (09:00→21:42)
[2016-09-13] MEDS: SODIUM CHLORIDE 0.9% FLUSH 10 ML FLUSH IV FLUSH SCH ×2 (09:00→20:30)
[2016-09-13] MEDS: SULFAMETHOXAZOLE-TRIMETHOPRIM DS 800-160 MG TAB PO SCH ×2 (09:33→21:41)
[2016-09-13] MEDS: OLANZapine ODT 5 MG TAB PO SCH ×2 (09:33→21:41)
[2016-09-13] MEDS: ACETAMINOPHEN/HYDROcodone 325 MG/5 MG TAB PO PRN ×2 (09:34→21:43)
[2016-09-13] MEDS: PANTOPRAZOLE SOD 40 MG DELAYED RELEASE TAB PO SCH (09:35)
[2016-09-13 09:42] VITALS: BP 143/90; PULSE 92; RESP 15; TEMP 98.2; O2SAT 98
--- NOTE | 2016-09-13 09:54 | HHI.PR ---
Subjective Remarks Follow-up for MS exacerbation, psychosis, acute right arm abscess. Nurse informed me yesterday the patient had spontaneous drainage from the right arm abscess and it was cultured. Patient denies any fevers. Objective Vitals Vital Signs Date Time Temp Pulse Resp B/P Pulse Ox O2 Delivery O2 Flow Rate FiO2 09/13/16 09:42 98.2 92 15 143/90 98 09/12/16 20:00 97.2 80 19 116/80 98 09/12/16 10:20 18 I/O 09/12/16 09/12/16 09/12/16 09/13/16 09/13/16 09/13/16 07:00 15:00 23:00 07:00 15:00 23:00 Intake Total 480 ml 1200 ml 120 ml Output Total 350 ml 1300 ml 600 ml Balance 130 ml 1200 ml -1180 ml -600 ml Intake Oral 480 ml 1200 ml 120 ml Output Urine Total 350 ml 1300 ml 600 ml # Voids 6 Objective Remarks GENERAL: Well-nourished, well-developed patient in apparent distress. SKIN: There is an indurated area measuring ~2 x 2 cm over the dorsal surface of the right forearm just distal to the elbow. No fluctuance. No surrounding erythema. CARDIOVASCULAR: Regular rate and rhythm. RESPIRATORY: No accessory muscle use. Clear to auscultation. Breath sounds equal bilaterally. GASTROINTESTINAL: Abdomen soft, non-tender, non-distended. MUSCULOSKELETAL: Full flexion and extension of R elbow. NEUROLOGICAL: Awake and alert. Normal speech. PSYCHIATRIC: Appropriate mood and affect. Urinary Catheter: No Vascular Central Line Catheter: No A/P Problem List: (1) Abscess of right arm ICD Code: L02.413 Status: Acute (2) Exacerbation of multiple sclerosis ICD Code: G35 Status: Acute (3) Brief psychotic disorder ICD Code: F23 Status: Acute (4) Cognitive impairment ICD Code: R41.89 Status: Acute Assessment and Plan 41-year-old male admitted with multiple sclerosis exacerbation and acute psychosis (likely related). Abscess: Acute. Distal to R elbow with surrounding erythema. Afebrile. -Warm compress was applied yesterday and spontaneous drainage occurred. Wound culture obtained. Final gram stain with rare white blood cells, but no organisms seen. Culture still pending. -There does not appear to be any further fluctuance, and surrounding erythema has resolved, but there is still an indurated area. No further I&D is required at this time, but nurse is advised she can continue warm compresses today. Will monitor clinically. -Continue Bactrim DS q12 hours x 5 days Ankle swelling: Likely attributed to dependent positioning. Patient advised to elevate legs. Multiple sclerosis with exacerbation: exacerbation resolved. -Completed steroids -Neurology following, recommends outpatient rehab -Continue OT and PT -[place] 5/325 mg q12h only prn for pain 4-10. Percocet was discontinued. -09/10: Patient complained of R knee pain and swelling but no swelling on exam. I spoke with physical therapist who states patient turns his right knee inward when he walks, attributed to MS, putting pressure on joint. Acute psychosis: Stable -Continue Zyprexa -Psychiatry has signed off, but would like to be reconsulted if patent starts to refuse medications. Cognitive impairment: Stable. Patient is still disoriented. Unsure if this is baseline, psychosis related, or MS related. -Speech therapy assessed patient and he has MOCA score of 12/30 indicating moderate to severe cognitive impairment. Hyperglycemia: Resolved, likely steroid related GI prophylaxis: Continue bowel regimen. DVT prophylaxis: SCDs given fall risk Patient discussed with Dr. Smith. Discharge Planning 09/08/16: Per CM, pt is to be evaluated for PASSR Level 2 before placement can be determined. [id number] signed. Yuli Marte Sep 13, 2016 09:54
[2016-09-13 20:00] VITALS: BP 119/80; PULSE 74; RESP 22; TEMP 98.1; O2SAT 99
[2016-09-14] MEDS: HEPARIN SODIUM - SQ 10,000 UNITS/ML VIAL SQ SCH ×3 (05:37→20:37)
[2016-09-14] MEDS: DOCUSATE SODIUM 50 MG/SENNA 8.6 MG TAB PO SCH ×2 (09:00→20:38)
[2016-09-14] MEDS: SODIUM CHLORIDE 0.9% FLUSH 10 ML FLUSH IV FLUSH SCH (09:00)
--- NOTE | 2016-09-14 09:24 | HHI.PYPN ---
Subjective Remarks The patient is a 41-year-old man, from [place], he has been living in [place] for 2 months, he is homeless, unemployed, single, his highest level of education is 6 grade, main family support is his mother, but he says they didn't have a good relationship. Patient has psychiatric history of schizophrenia and bipolar disorder, multiple previous hospitalization, patient refused to provide for their information about his psychiatric history, but he reports also history of overtaking incarcerations, one of them for over 15 years "for multiple reasons". On psychiatric evaluation today the patient is calm, cooperative and pleasant. He has some periods of irritability and verbal hostility, but he is easily escalated. As per nurse in charge Irina, patient has been presenting visual hallucinations, he has been talking with unexisting people, also patient has been agitated, at times verbally aggressive and difficult to handle in the floor. Patient reports good mood, he denies depressive symptoms, he denies anhedonia, he denies hopelessness, he denies helplessness, he denies problems with concentration, energy or sleep. He denies suicidal and homicidal ideation, patient denies visual and auditory hallucinations at this moment. He seems to have a poor insight about his episodic visual hallucinations, but he does report that at times he is experiencing "like being in another place with a bunch of people" . On evaluation patient has moments of tangentiality, disorganized speech, bizarre behavior and becomes oddly related, but he is very easily redirectable. Patient is fully oriented 3, he knows what is depressing with denies states, he doesn't have any attention deficit, not fluctuation of consciousness. No cognitive deep testing was performed at this moment. Review of Systems Constitutional: DENIES: Diaphoretic episodes, Fatigue, Fever, Weight gain, Weight loss, Chills, Dizziness, Change in appetite, Night Sweats Endocrine: DENIES: Heat/cold intolerance, Polydipsia, Polyuria, Polyphagia Eyes: DENIES: Blurred vision, Diplopia, Eye inflammation, Eye pain, Vision loss , Photosensitivity, Double Vision Ears, nose, mouth, throat: DENIES: Tinnitus, Hearing loss, Vertigo, Nasal discharge, Oral lesions, Throat pain, Hoarseness, Ear Pain, Running Nose, Epistaxis, Sinus Pain, Toothache, Odynophagia Respiratory: DENIES: Apneas, Cough, Snoring, Wheezing, Hemoptysis, Sputum production, Shortness of breath Cardiovascular: DENIES: Chest pain, Palpitations, Syncope, Dyspnea on Exertion , PND, Lower Extremity Edema, Orthopnea, Claudication Genitourinary: DENIES: Sexual dysfunction, Urinary frequency, Urinary incontinence, Urgency, Hematuria, Dysuria, Nocturia, Penile Discharge, Testicular Pain, Testicular Swelling Musculoskeletal: DENIES: Joint pain, Muscle aches, Stiffness, Joint Swelling, Back pain, Neck pain Hematologic/lymphatic: DENIES: Bruising, Lymphadenopathy Neurologic: DENIES: Abnormal gait, Headache, Localized weakness, Paresthesias, Seizures, Speech Problems, Tremor, Poor Balance Psychiatric: COMPLAINS OF: Hallucinations, Agitation Objective Alert: Yes [place]: Person, Place, Date, Situation Mood: Calm Affect: Appropriate Memory Intact: Immediate, Recent, Remote Hallucinations: Visual Delusions: No Delusion Type: Other (no delusions elicited) Suicidal: Ideation (no SI) Homicidal: Ideation (no HI) Insight/Judgment Fair Labs Date/Time Procedure Status Source Growth 09/12/16 14:10 Gram Stain - Final Resulted Wound Arm 09/12/16 14:10 Wound Culture - Preliminary Resulted S. Aureus Mrsa Vitals/IOs Vital Signs Date Time Temp Pulse Resp B/P Pulse Ox O2 Delivery O2 Flow Rate FiO2 09/13/16 20:00 98.1 74 22 119/80 99 09/12/16 07:00 Room Air 09/11/16 19:00 21 Intake and Output 09/13/16 09/13/16 09/13/16 07:59 15:59 23:59 Intake Total 120 ml 1440 ml Output Total 1300 ml 600 ml 600 ml Balance -1180 ml -600 ml 840 ml Assessment & Plan Problem List: (1) Brief psychotic disorder Assessment & Plan: On psychiatric evaluation patient is calm, cooperative, even pleasant, he is in a good spirits, logical, coherent and relevant. No agitation or aggressive behavior present at this moment. He does present episodic disorganized speech, tangentiality, bizarre thinking. He also reports episodic visual hallucinations, he does not seem to be distressed by them. However nurses report agitation and aggressive behavior in the floor. At this moment is unclear the nature of this perceptual disturbances, MS and underlying infection could be responsible for his delirium and neuropsychiatric symptoms. But, a primary psychotic disorder such as schizophrenia/schizoaffective disorder decompensation is also possible. I will increase the olanzapine to 10 mg twice a day. Might consider a psychiatric hospitalization if patient continues to be psychotic be him medical clearance. If you have any question please contact me, ICD Code: F23 Assessment & Plan Estimated LOS: days Justification for Cont. Inpt. At this moment the patient does not need a psychiatric hospitalization. We'll follow-up. Rakan Ronquillo MD Sep 14, 2016 09:24
[2016-09-14] MEDS: SULFAMETHOXAZOLE-TRIMETHOPRIM DS 800-160 MG TAB PO SCH ×2 (09:41→20:38)
[2016-09-14] MEDS: PANTOPRAZOLE SOD 40 MG DELAYED RELEASE TAB PO SCH (09:42)
[2016-09-14] MEDS: ACETAMINOPHEN/HYDROcodone 325 MG/5 MG TAB PO PRN (09:42)
--- NOTE | 2016-09-14 14:30 | HHI.PR ---
Subjective Remarks Patient seen and examined today for follow-up on multiple sclerosis exacerbation , psychosis, abscess. Patient was seen in room by sitting in a wheelchair. He has a plethora of questions concerning his care about his right lower extremity swelling, his discharge planning, his outpatient follow-up, his home medications that were never continued. Patient very eager to get out of the hospital. He wants a phone book so he can find a place so he can live. He indicates that his disability should be able to pay for any facility that he go to Objective Vitals Vital Signs Date Time Temp Pulse Resp B/P Pulse Ox O2 Delivery O2 Flow Rate FiO2 09/14/16 10:42 18 09/13/16 20:00 98.1 74 22 119/80 99 I/O 09/13/16 09/13/16 09/13/16 09/14/16 09/14/16 09/14/16 07:00 15:00 23:00 07:00 15:00 23:00 Intake Total 120 ml 1440 ml 240 ml Output Total 1300 ml 600 ml 600 ml 1300 ml Balance -1180 ml -600 ml 840 ml -1060 ml Intake Oral 120 ml 1440 ml 240 ml Output Urine Total 1300 ml 600 ml 600 ml 1300 ml # Voids 4 Objective Remarks GENERAL: Well-developed, well-nourished, in no acute distress. alert and orientated HEENT: Head is normocephalic without any lesions or masses noted. Facial features are symmetric. Eyes: Extraocular muscles are intact. Conjunctivae were clear. NECK: Supple without any masses. Trachea midline no deviation. No JVD, CARDIAC: Regular rhythm, regular rate. S1/S2 are heard. No murmurs gallops or rubs. LUNGS: Clear to auscultation bilaterally. No wheeze, rhonchi or rales. No use of accessory muscles on inspiration or expiration. ABDOMEN: Soft, nontender. Nondistended. Bowel sounds heard in all 4 quadrants. No organomegaly or masses. Negative rebound, negative guarding EXTREMITIES: No edema, pulses are equal bilaterally. No cyanosis or clubbing. Right lower extremity appears to be larger than left lower extremity, with pitting edema NEUROLOGY: Mood and affect appear appropriate. Cranial nerves II through XII grossly intact. Moving all extremities, speech is clear Urinary Catheter: No Vascular Central Line Catheter: No A/P Assessment and Plan Right lower extremity edema Obtain ultrasound rule out any DVT Abscess right elbow Warm compress was applied yesterday and spontaneous drainage occurred. Wound culture with MRSA Continue Bactrim every 12 hours which is sensitive on culture Multiple sclerosis with exacerbation: exacerbation resolved. Completed inpatient treatment Neurology evaluated patient and recommended outpatient management Acute psychosis: Stable Continue Zyprexa Psychiatry reevaluated the patient and recommended increase of Zyprexa 10 mg twice a day may consider psychiatric hospitalization continues to be psychotic Cognitive impairment: Improved. Speech therapy assessed patient and he has MOCA score of 12/30 indicating moderate to severe cognitive impairment. Continue speech therapy evaluations for changes GI prophylaxis: Continue bowel regimen. DVT prophylaxis: SCDs, subcutaneous heparin Adrien Marquez Sep 14, 2016 14:30
[2016-09-14] MEDS ORDERED: ONDANSETRON ODT 4 MG TAB PO PRN (15:00)
--- NOTE | 2016-09-14 16:14 | RADHPO ---
EXAM DATE/TIME: 09/14/2016 15:31 [facility] COMPARISON: No previous studies available for comparison. INDICATIONS : Rigth arm swelling. MEDICAL HISTORY : Multiple sclerosis. Substance abuse. Attempted suicide. SURGICAL HISTORY : None. ENCOUNTER: Subsequent ACUITY: 1 day PAIN SCORE: 1/10 LOCATION: Right leg. TECHNIQUE: Venous ultrasound of the leg was performed from the inguinal ligament to the proximal calf. Real-pranay e, color Doppler and spectral tracing, compression and augmentation techniques were used. FINDINGS: There is normal compressibility of the deep venous system from the inguinal region to the proximal ca lf. No echogenic clot is seen in the lumen of the common femoral, femoral, popliteal, and posterior tibial veins. There is a normal response of the venous system to proximal and distal augmentation an d respiration. CONCLUSION: No DVT in the right leg. Serjio Bob MD on September 14, 2016 at 16:09 Board Certified Radiologist. This report was verified electronically.
[2016-09-14 20:00] VITALS: BP 129/81; PULSE 73; RESP 16; TEMP 97.7; O2SAT 98
[2016-09-14] MEDS: OLANZapine ODT 5 MG TAB PO SCH (20:37)
[2016-09-15] MEDS: HEPARIN SODIUM - SQ 10,000 UNITS/ML VIAL SQ SCH ×3 (05:54→22:19)
[2016-09-15 08:39] VITALS: BP 147/95; PULSE 84; RESP 19; TEMP 97.1; O2SAT 100
[2016-09-15] MEDS: SULFAMETHOXAZOLE-TRIMETHOPRIM DS 800-160 MG TAB PO SCH ×2 (08:54→22:18)
[2016-09-15] MEDS: PANTOPRAZOLE SOD 40 MG DELAYED RELEASE TAB PO SCH (08:55)
[2016-09-15] MEDS: DOCUSATE SODIUM 50 MG/SENNA 8.6 MG TAB PO SCH ×2 (08:55→21:00)
[2016-09-15] MEDS: OLANZapine ODT 5 MG TAB PO SCH ×2 (08:56→22:20)
--- NOTE | 2016-09-15 14:34 | HHI.PR ---
Subjective Remarks Patient seen and examined today for follow-up on multiple sclerosis, psychosis, abscess. Patient sitting in chair, denies any new complaints. States it still having swelling of right lower extremity. He indicates that is up walking with physical therapy today. He is very interested and when he is going to be discharged he is trying to find a home to live in. Objective Vitals Vital Signs Date Time Temp Pulse Resp B/P Pulse Ox O2 Delivery O2 Flow Rate FiO2 09/15/16 08:39 97.1 84 19 147/95 100 09/14/16 20:00 97.7 73 16 129/81 98 I/O 09/14/16 09/14/16 09/14/16 09/15/16 09/15/16 09/15/16 07:00 15:00 23:00 07:00 15:00 23:00 Intake Total 240 ml 1100 ml 700 ml 720 ml Output Total 1300 ml 1000 ml Balance -1060 ml 1100 ml 700 ml -280 ml Intake Oral 240 ml 1100 ml 700 ml 720 ml Output Urine Total 1300 ml 1000 ml # Voids 3 3 # Bowel Movements 1 0 0 Objective Remarks GENERAL: Well-developed, well-nourished, in no acute distress. alert and orientated HEENT: Head is normocephalic without any lesions or masses noted. Facial features are symmetric. Eyes: Extraocular muscles are intact. Conjunctivae were clear. NECK: Supple without any masses. Trachea midline no deviation. No JVD, CARDIAC: Regular rhythm, regular rate. S1/S2 are heard. No murmurs gallops or rubs. LUNGS: Clear to auscultation bilaterally. No wheeze, rhonchi or rales. No use of accessory muscles on inspiration or expiration. ABDOMEN: Soft, nontender. Nondistended. Bowel sounds heard in all 4 quadrants. No organomegaly or masses. Negative rebound, negative guarding EXTREMITIES: No edema, pulses are equal bilaterally. No cyanosis or clubbing. Right lower extremity appears to be larger than left lower extremity, with pitting edema NEUROLOGY: Mood and affect appear appropriate. Cranial nerves II through XII grossly intact. Moving all extremities, speech is clear Urinary Catheter: No Vascular Central Line Catheter: No A/P Assessment and Plan Right lower extremity edema Ultrasound performed which did not indicate any acute abnormality Abscess right elbow Warm compress was applied yesterday and spontaneous drainage occurred. Wound culture with MRSA Continue Bactrim every 12 hours which is sensitive on culture Multiple sclerosis with exacerbation: exacerbation resolved. Completed inpatient treatment Neurology evaluated patient and recommended outpatient management Acute psychosis: Stable Continue Zyprexa Psychiatry reevaluated the patient and recommended increase of Zyprexa 10 mg twice a day may consider psychiatric hospitalization continues to be psychotic Cognitive impairment: Improved. Speech therapy assessed patient and he has MOCA score of 12/30 indicating moderate to severe cognitive impairment. Awaiting speech therapy for reevaluation to see if patient has improved GI prophylaxis: Continue bowel regimen. DVT prophylaxis: SCDs, subcutaneous heparin Discharge Planning Discharge planning per case management Adrien Marquez Sep 15, 2016 14:34
[2016-09-15 20:00] VITALS: BP 128/73; PULSE 91; RESP 16; TEMP 96.6; O2SAT 99
[2016-09-16] MEDS: HEPARIN SODIUM - SQ 10,000 UNITS/ML VIAL SQ SCH ×3 (06:00→21:40)
[2016-09-16 08:59] VITALS: BP 129/85; PULSE 92; RESP 15; TEMP 98.1; O2SAT 97
[2016-09-16] MEDS: DOCUSATE SODIUM 50 MG/SENNA 8.6 MG TAB PO SCH ×2 (09:00→21:00)
[2016-09-16] MEDS: SULFAMETHOXAZOLE-TRIMETHOPRIM DS 800-160 MG TAB PO SCH ×2 (09:12→21:40)
[2016-09-16] MEDS: PANTOPRAZOLE SOD 40 MG DELAYED RELEASE TAB PO SCH (09:12)
[2016-09-16] MEDS: OLANZapine ODT 5 MG TAB PO SCH ×2 (09:13→21:40)
--- NOTE | 2016-09-16 10:57 | HHI.PR ---
Subjective Remarks Patient seen and examined today for follow-up on multiple sclerosis, psychosis, abscess. Patient lying bed sleeping upon entering the room. Patient is very eager to be discharged. Objective Vitals Vital Signs Date Time Temp Pulse Resp B/P Pulse Ox O2 Delivery O2 Flow Rate FiO2 09/16/16 08:59 98.1 92 15 129/85 97 09/15/16 20:00 96.6 91 16 128/73 99 I/O 09/15/16 09/15/16 09/15/16 09/16/16 09/16/16 09/16/16 07:00 15:00 23:00 07:00 15:00 23:00 Intake Total 720 ml 2520 ml 480 ml 350 ml Output Total 1000 ml 650 ml 2000 ml Balance -280 ml 1870 ml -1520 ml 350 ml Intake Oral 720 ml 2520 ml 480 ml 350 ml Output Urine Total 1000 ml 650 ml 2000 ml # Voids 8 1 # Bowel Movements 0 2 0 Objective Remarks GENERAL: Well-developed, well-nourished, in no acute distress. alert and orientated HEENT: Head is normocephalic without any lesions or masses noted. Facial features are symmetric. Eyes: Extraocular muscles are intact. Conjunctivae were clear. NECK: Supple without any masses. Trachea midline no deviation. No JVD, CARDIAC: Regular rhythm, regular rate. S1/S2 are heard. No murmurs gallops or rubs. LUNGS: Clear to auscultation bilaterally. No wheeze, rhonchi or rales. No use of accessory muscles on inspiration or expiration. ABDOMEN: Soft, nontender. Nondistended. Bowel sounds heard in all 4 quadrants. No organomegaly or masses. Negative rebound, negative guarding EXTREMITIES: 1+ pitting edema noted in the right lower extremity, pulses are equal bilaterally. No cyanosis or clubbing. NEUROLOGY: Mood and affect appear appropriate. Cranial nerves II through XII grossly intact. Moving all extremities, speech is clear Urinary Catheter: No Vascular Central Line Catheter: No A/P Assessment and Plan Right lower extremity edema Ultrasound performed which did not indicate any acute abnormality Abscess right elbow Warm compress was applied yesterday and spontaneous drainage occurred. Wound culture with MRSA Continue Bactrim every 12 hours which is sensitive on culture Multiple sclerosis with exacerbation: exacerbation resolved. Completed inpatient treatment Neurology evaluated patient and recommended outpatient management Acute psychosis: Stable Continue Zyprexa 10 mg twice daily Psychiatry following the patient. Cognitive impairment: Improved. Speech therapy assessed patient and he has MOCA score of 12/30 indicating moderate to severe cognitive impairment. Speech therapy reassessed the patient still indicating patient MOCA score has not changed and they spoke with psychiatry who believes that his cognition issue is related to his psychiatric problems GI prophylaxis: Continue bowel regimen. DVT prophylaxis: SCDs, subcutaneous heparin Discharge Planning Discharge planning per case management Adrien Marquez Sep 16, 2016 10:57
[2016-09-16 20:00] VITALS: BP 143/87; PULSE 92; RESP 20; TEMP 97.8; O2SAT 98
[2016-09-17] MEDS: HEPARIN SODIUM - SQ 10,000 UNITS/ML VIAL SQ SCH ×3 (05:36→20:44)
[2016-09-17 08:00] VITALS: BP 111/67; PULSE 76; RESP 16; TEMP 97.5; O2SAT 98
[2016-09-17] MEDS: OLANZapine ODT 5 MG TAB PO SCH ×2 (09:00→20:45)
[2016-09-17] MEDS: DOCUSATE SODIUM 50 MG/SENNA 8.6 MG TAB PO SCH ×2 (09:00→20:45)
[2016-09-17] MEDS: PANTOPRAZOLE SOD 40 MG DELAYED RELEASE TAB PO SCH (10:07)
--- NOTE | 2016-09-17 11:13 | HHI.PR ---
Subjective Remarks Patient seen and examined today for follow-up on multiple sclerosis, psychosis, abscess. Patient is doing much better. Patient is inquiring when he gets to leave the hospital. Still awaiting case management to make arrangements with pasr form to go to rehabilitation facility Objective Vitals Vital Signs Date Time Temp Pulse Resp B/P Pulse Ox O2 Delivery O2 Flow Rate FiO2 09/17/16 08:00 97.5 76 16 111/67 98 09/16/16 20:00 97.8 92 20 143/87 98 I/O 09/16/16 09/16/16 09/16/16 09/17/16 09/17/16 09/17/16 06:59 14:59 22:59 06:59 14:59 22:59 Intake Total 480 ml 350 ml 1980 ml 720 ml Output Total 2000 ml 800 ml Balance -1520 ml 350 ml 1180 ml 720 ml Intake Oral 480 ml 350 ml 1980 ml 360 ml Tube Feeding 240 ml Tube Irrigant 120 ml Output Urine Total 2000 ml 800 ml # Voids 1 5 2 1 # Bowel Movements 0 Objective Remarks GENERAL: Well-developed, well-nourished, in no acute distress. alert and orientated HEENT: Head is normocephalic without any lesions or masses noted. Facial features are symmetric. Eyes: Extraocular muscles are intact. Conjunctivae were clear. NECK: Supple without any masses. Trachea midline no deviation. No JVD, CARDIAC: Regular rhythm, regular rate. S1/S2 are heard. No murmurs gallops or rubs. LUNGS: Clear to auscultation bilaterally. No wheeze, rhonchi or rales. No use of accessory muscles on inspiration or expiration. ABDOMEN: Soft, nontender. Nondistended. Bowel sounds heard in all 4 quadrants. No organomegaly or masses. Negative rebound, negative guarding EXTREMITIES: 1+ pitting edema noted in the right lower extremity, pulses are equal bilaterally. No cyanosis or clubbing. NEUROLOGY: Mood and affect appear appropriate. Cranial nerves II through XII grossly intact. Moving all extremities, speech is clear Urinary Catheter: No Vascular Central Line Catheter: No A/P Assessment and Plan Right lower extremity edema, resolved Ultrasound performed which did not indicate any acute abnormality Abscess right elbow Warm compress was applied yesterday and spontaneous drainage occurred. Wound culture with MRSA Continue Bactrim every 12 hours which is sensitive on culture Multiple sclerosis with exacerbation: exacerbation resolved. Completed inpatient treatment Neurology evaluated patient and recommended outpatient management Acute psychosis: Significantly improved with increase of medication Continue Zyprexa 10 mg twice daily Psychiatry following the patient. Cognitive impairment: Improved. Speech therapy assessed patient and he has MOCA score of 12/30 indicating moderate to severe cognitive impairment. Speech therapy reassessed the patient still indicating patient MOCA score has not changed and they spoke with psychiatry who believes that his cognition issue is related to his psychiatric problems GI prophylaxis: Continue bowel regimen. DVT prophylaxis: SCDs, subcutaneous heparin Discharge Planning Discharge planning per case management, apparently waiting approval from residential facility Adrien Marquez Sep 17, 2016 11:13
[2016-09-17 20:00] VITALS: BP 121/78; PULSE 77; RESP 22; TEMP 97.8; O2SAT 98
[2016-09-18] MEDS: HEPARIN SODIUM - SQ 10,000 UNITS/ML VIAL SQ SCH ×3 (06:13→21:59)
[2016-09-18] MEDS: OLANZapine ODT 5 MG TAB PO SCH ×2 (07:59→21:00)
[2016-09-18] MEDS: PANTOPRAZOLE SOD 40 MG DELAYED RELEASE TAB PO SCH (07:59)
[2016-09-18] MEDS: DOCUSATE SODIUM 50 MG/SENNA 8.6 MG TAB PO SCH ×2 (07:59→21:57)
[2016-09-18 08:00] VITALS: BP 107/64; PULSE 89; RESP 20; TEMP 97.9; O2SAT 97
--- NOTE | 2016-09-18 11:50 | HHI.PR ---
Subjective Remarks Patient seen and examined today for follow-up on psychosis, MS, abscess. Patient only complaint is that his right lower extremity is swollen, patient has had workup without any abnormal finding. Patient has been instructed to keep leg elevated when not ambulating, patient always sitting in chair with leg down. Objective Vitals Vital Signs Date Time Temp Pulse Resp B/P Pulse Ox O2 Delivery O2 Flow Rate FiO2 09/18/16 08:00 97.9 89 20 107/64 97 09/17/16 20:00 97.8 77 22 121/78 98 I/O 09/17/16 09/17/16 09/17/16 09/18/16 09/18/16 09/18/16 07:00 15:00 23:00 07:00 15:00 23:00 Intake Total 720 ml 1320 ml Output Total 800 ml 550 ml Balance 720 ml 520 ml -550 ml Intake Oral 360 ml 1320 ml Tube Feeding 240 ml Tube Irrigant 120 ml Output Urine Total 800 ml 550 ml # Voids 2 1 4 Objective Remarks GENERAL: Well-developed, well-nourished, in no acute distress. alert and orientated HEENT: Head is normocephalic without any lesions or masses noted. Facial features are symmetric. Eyes: Extraocular muscles are intact. Conjunctivae were clear. NECK: Supple without any masses. Trachea midline no deviation. No JVD, CARDIAC: Regular rhythm, regular rate. S1/S2 are heard. No murmurs gallops or rubs. LUNGS: Clear to auscultation bilaterally. No wheeze, rhonchi or rales. No use of accessory muscles on inspiration or expiration. ABDOMEN: Soft, nontender. Nondistended. Bowel sounds heard in all 4 quadrants. No organomegaly or masses. Negative rebound, negative guarding EXTREMITIES: 1+ pitting edema noted in the right lower extremity, pulses are equal bilaterally. No cyanosis or clubbing. NEUROLOGY: Mood and affect appear appropriate. Cranial nerves II through XII grossly intact. Moving all extremities, speech is clear Urinary Catheter: No Vascular Central Line Catheter: No A/P Assessment and Plan Right lower extremity edema, improving Ultrasound performed which did not indicate any acute abnormality Abscess right elbow Warm compress was applied yesterday and spontaneous drainage occurred. Wound culture with MRSA Completed Bactrim every 12 hours which is sensitive on culture Multiple sclerosis with exacerbation: exacerbation resolved. Completed inpatient treatment Neurology evaluated patient and recommended outpatient management Acute psychosis: Significantly improved with increase of medication Continue Zyprexa 10 mg twice daily Psychiatry following the patient. Cognitive impairment: Improved. Speech therapy assessed patient and he has MOCA score of 12/30 indicating moderate to severe cognitive impairment. Speech therapy reassessed the patient still indicating patient MOCA score has not changed and they spoke with psychiatry who believes that his cognition issue is related to his psychiatric problems GI prophylaxis: Continue bowel regimen. DVT prophylaxis: SCDs, subcutaneous heparin Discharge Planning Discharge planning per case management, apparently waiting approval from [facility] facility Adrien Marquez Sep 18, 2016 11:50
[2016-09-18 20:00] VITALS: BP 116/75; PULSE 88; RESP 16; TEMP 97.6; O2SAT 98
[2016-09-19] MEDS: HEPARIN SODIUM - SQ 10,000 UNITS/ML VIAL SQ SCH ×3 (05:47→21:19)
[2016-09-19] MEDS: OLANZapine ODT 5 MG TAB PO SCH ×2 (07:21→21:00)
[2016-09-19] MEDS: DOCUSATE SODIUM 50 MG/SENNA 8.6 MG TAB PO SCH ×2 (07:21→21:20)
[2016-09-19] MEDS: PANTOPRAZOLE SOD 40 MG DELAYED RELEASE TAB PO SCH (07:21)
[2016-09-19 08:00] VITALS: BP 137/90; PULSE 87; RESP 20; TEMP 96.8; O2SAT 100
--- NOTE | 2016-09-19 09:42 | HHI.PR ---
Subjective Remarks Patient seen and examined today for follow-up on psychosis, MS, abscess. Patient denies any new complaints. States that he is eating well and is having normal bowel movements. Patient did not complain about his leg edema today. He is very talkative and discussed daily activities, how each of us are doing. Patient mental status appears to be much improved. Still awaiting case management for discharge planning Objective Vitals Vital Signs Date Time Temp Pulse Resp B/P Pulse Ox O2 Delivery O2 Flow Rate FiO2 09/19/16 08:00 96.8 87 20 137/90 100 09/18/16 20:00 97.6 88 16 116/75 98 I/O 09/18/16 09/18/16 09/18/16 09/19/16 09/19/16 09/19/16 07:00 15:00 23:00 07:00 15:00 23:00 Intake Total 960 ml 720 ml Output Total 550 ml 550 ml 1050 ml Balance -550 ml 410 ml -330 ml Intake Oral 960 ml 720 ml Output Urine Total 550 ml 550 ml 1050 ml # Voids 3 # Bowel Movements 0 1 Objective Remarks GENERAL: Well-developed, well-nourished, in no acute distress. alert and orientated HEENT: Head is normocephalic without any lesions or masses noted. Facial features are symmetric. Eyes: Extraocular muscles are intact. Conjunctivae were clear. NECK: Supple without any masses. Trachea midline no deviation. No JVD, CARDIAC: Regular rhythm, regular rate. S1/S2 are heard. No murmurs gallops or rubs. LUNGS: Clear to auscultation bilaterally. No wheeze, rhonchi or rales. No use of accessory muscles on inspiration or expiration. ABDOMEN: Soft, nontender. Nondistended. Bowel sounds heard in all 4 quadrants. No organomegaly or masses. Negative rebound, negative guarding EXTREMITIES: 1+ pitting edema noted in the right lower extremity, pulses are equal bilaterally. No cyanosis or clubbing. NEUROLOGY: Mood and affect appear appropriate. Cranial nerves II through XII grossly intact. Moving all extremities, speech is clear Urinary Catheter: No Vascular Central Line Catheter: No A/P Assessment and Plan Acute psychosis: Significantly improved with increase of medication Continue Zyprexa 10 mg twice daily Psychiatry following the patient. Cognitive impairment: Improved. Speech therapy assessed patient and he has MOCA score of 12/30 indicating moderate to severe cognitive impairment. Speech therapy reassessed the patient still indicating patient MOCA score has not changed and they spoke with psychiatry who believes that his cognition issue is related to his psychiatric problems Right lower extremity edema, improving Ultrasound performed which did not indicate any acute abnormality Abscess right elbow, treated Warm compress was applied yesterday and spontaneous drainage occurred. Wound culture with MRSA Completed Bactrim every 12 hours which is sensitive on culture Multiple sclerosis with exacerbation: exacerbation resolved. Completed inpatient treatment Neurology evaluated patient and recommended outpatient management GI prophylaxis: Continue bowel regimen. DVT prophylaxis: SCDs, subcutaneous heparin Discharge Planning Discharge planning per case management, apparently waiting approval from shelter facility Adrien Marquez Sep 19, 2016 09:42
[2016-09-19 20:00] VITALS: BP 136/83; PULSE 89; RESP 18; TEMP 97.1; O2SAT 97
[2016-09-20] MEDS: ACETAMINOPHEN 325 MG TAB PO PRN (00:06)
[2016-09-20] MEDS: HEPARIN SODIUM - SQ 10,000 UNITS/ML VIAL SQ SCH ×3 (05:57→21:46)
[2016-09-20 08:00] VITALS: BP 136/76; PULSE 71; RESP 18; TEMP 97.8; O2SAT 97
[2016-09-20] MEDS: PANTOPRAZOLE SOD 40 MG DELAYED RELEASE TAB PO SCH (08:46)
[2016-09-20] MEDS: DOCUSATE SODIUM 50 MG/SENNA 8.6 MG TAB PO SCH ×2 (08:46→21:46)
[2016-09-20] MEDS: OLANZapine ODT 5 MG TAB PO SCH ×2 (08:46→21:46)
--- NOTE | 2016-09-20 11:26 | HHI.PR ---
Subjective Remarks Patient seen and examined today for follow-up on MS. Patient denies any new complaints. Patient doing well still awaiting case management for discharge planning Objective Vitals Vital Signs Date Time Temp Pulse Resp B/P Pulse Ox O2 Delivery O2 Flow Rate FiO2 09/20/16 01:00 16 09/19/16 20:00 97.1 89 18 136/83 97 I/O 09/19/16 09/19/16 09/19/16 09/20/16 09/20/16 09/20/16 07:00 15:00 23:00 07:00 15:00 23:00 Intake Total 720 ml 1250 ml 480 ml 720 ml Output Total 1050 ml 750 ml 1500 ml Balance -330 ml 500 ml 480 ml -780 ml Intake Oral 720 ml 1250 ml 480 ml 720 ml Output Urine Total 1050 ml 750 ml 1500 ml # Voids 3 # Bowel Movements 1 1 0 0 Objective Remarks GENERAL: Well-developed, well-nourished, in no acute distress. alert and orientated HEENT: Head is normocephalic without any lesions or masses noted. Facial features are symmetric. Eyes: Extraocular muscles are intact. Conjunctivae were clear. NECK: Supple without any masses. Trachea midline no deviation. No JVD, CARDIAC: Regular rhythm, regular rate. S1/S2 are heard. No murmurs gallops or rubs. LUNGS: Clear to auscultation bilaterally. No wheeze, rhonchi or rales. No use of accessory muscles on inspiration or expiration. ABDOMEN: Soft, nontender. Nondistended. Bowel sounds heard in all 4 quadrants. No organomegaly or masses. Negative rebound, negative guarding EXTREMITIES: 1+ pitting edema noted in the right lower extremity, pulses are equal bilaterally. No cyanosis or clubbing. NEUROLOGY: Mood and affect appear appropriate. Cranial nerves II through XII grossly intact. Moving all extremities, speech is clear Urinary Catheter: No Vascular Central Line Catheter: No A/P Assessment and Plan Acute psychosis: Significantly improved with increase of medication Continue Zyprexa 10 mg twice daily Psychiatry following the patient. Cognitive impairment: Improved. Speech therapy assessed patient and he has MOCA score of 12/30 indicating moderate to severe cognitive impairment. Speech therapy reassessed the patient still indicating patient MOCA score has not changed and they spoke with psychiatry who believes that his cognition issue is related to his psychiatric problems Right lower extremity edema, improving Ultrasound performed which did not indicate any acute abnormality Abscess right elbow, treated Warm compress was applied yesterday and spontaneous drainage occurred. Wound culture with MRSA Completed Bactrim every 12 hours which is sensitive on culture Multiple sclerosis with exacerbation: exacerbation resolved. Completed inpatient treatment Neurology evaluated patient and recommended outpatient management GI prophylaxis: Continue bowel regimen. DVT prophylaxis: SCDs, subcutaneous heparin Records reviewed, absolutely no change in treatment plan still awaiting paperwork for discharge to longterm facility Discharge Planning Discharge planning per case management, apparently waiting approval from longterm facility Adrien Marquez Sep 20, 2016 11:26
[2016-09-20 20:00] VITALS: BP 149/92; PULSE 95; RESP 21; TEMP 97.2; O2SAT 100
[2016-09-21] MEDS: HEPARIN SODIUM - SQ 10,000 UNITS/ML VIAL SQ SCH ×3 (06:00→21:16)
[2016-09-21 08:00] VITALS: BP 133/65; PULSE 70; RESP 18; TEMP 97.4; O2SAT 97
[2016-09-21] MEDS: DOCUSATE SODIUM 50 MG/SENNA 8.6 MG TAB PO SCH ×2 (09:39→21:16)
[2016-09-21] MEDS: PANTOPRAZOLE SOD 40 MG DELAYED RELEASE TAB PO SCH (09:40)
[2016-09-21] MEDS: OLANZapine ODT 5 MG TAB PO SCH ×2 (09:40→21:00)
--- NOTE | 2016-09-21 10:24 | HHI.PR ---
Subjective Remarks Follow-up for MS exacerbation, psychosis. No acute complaints. Patient asks "Am I leaving?". Objective Vitals Vital Signs Date Time Temp Pulse Resp B/P Pulse Ox O2 Delivery O2 Flow Rate FiO2 09/21/16 08:00 97.4 70 18 133/65 97 09/20/16 20:00 97.2 95 21 149/92 100 I/O 09/20/16 09/20/16 09/20/16 09/21/16 09/21/16 09/21/16 07:00 15:00 23:00 07:00 15:00 23:00 Intake Total 720 ml 1320 ml 240 ml Output Total 1500 ml 400 ml 400 ml Balance -780 ml 920 ml -160 ml Intake Oral 720 ml 1320 ml 240 ml Output Urine Total 1500 ml 400 ml 400 ml # Voids 4 # Bowel Movements 0 Objective Remarks GENERAL: Well-nourished, well-developed patient in apparent distress. CARDIOVASCULAR: Regular rate and rhythm. RESPIRATORY: No accessory muscle use. Clear to auscultation. Breath sounds equal bilaterally. GASTROINTESTINAL: Abdomen soft, non-tender, non-distended. NEUROLOGICAL: Awake and alert. Patient states it is October 2019. He knows he is at the hospital but thinks he is in [place]. Normal speech. PSYCHIATRIC: Appropriate mood and affect. Urinary Catheter: No Vascular Central Line Catheter: No A/P Problem List: (1) Abscess of right arm ICD Code: L02.413 Status: Acute (2) Exacerbation of multiple sclerosis ICD Code: G35 Status: Acute (3) Brief psychotic disorder ICD Code: F23 Status: Acute (4) Cognitive impairment ICD Code: R41.89 Status: Acute Assessment and Plan 41-year-old male admitted with multiple sclerosis exacerbation and acute psychosis. Abscess: Resolved. -Warm compress applied and spontaneous drainage occurred. Wound culture with MRSA. -S/p Bactrim DS q12 hours x 5 days Ankle swelling: Likely attributed to dependent positioning. Patient advised to elevate legs. Doppler US right leg negative for DVT. Multiple sclerosis with exacerbation: exacerbation resolved. -Completed steroids -Neurology following, recommends outpatient rehab -Continue OT and PT -[place] 5/325 mg q12h only prn for pain 4-10. Percocet was discontinued. Acute psychosis: Improved -09/13: Per nurse patient slamming drawers, talking to an imaginary person. -09/14: Psychiatry reevaluated patient and increased Zyprexa to 10 mg bid Cognitive impairment: Stable. Patient is still disoriented. -Speech therapy assessed patient and he has MOCA score of 12/30 indicating moderate to severe cognitive impairment, states likely related to psych issues. Hyperglycemia: Resolved, likely steroid related GI prophylaxis: Continue bowel regimen. DVT prophylaxis: SCDs, heparin Discharge Planning 09/21/16: Per patient received PASSR and patient is appropriate for SNF; [facility] to evaluate. Yuli Marte Sep 21, 2016 10:[address] Smith. Discharge Planning 09/08/16: Per CM, pt is to be evaluated for PASSR Level 2 before placement can be determined. [id number] signed. Yuli Marte Sep 21, 2016 10:23
[2016-09-21 20:00] VITALS: BP 119/81; PULSE 78; RESP 19; TEMP 96.2; O2SAT 97
[2016-09-22] MEDS: HEPARIN SODIUM - SQ 10,000 UNITS/ML VIAL SQ SCH ×3 (05:43→21:57)
[2016-09-22 08:00] VITALS: BP 146/95; PULSE 88; RESP 20; TEMP 98.4; O2SAT 98
[2016-09-22] MEDS: PANTOPRAZOLE SOD 40 MG DELAYED RELEASE TAB PO SCH (09:12)
[2016-09-22] MEDS: DOCUSATE SODIUM 50 MG/SENNA 8.6 MG TAB PO SCH ×2 (09:12→21:57)
[2016-09-22] MEDS: OLANZapine ODT 5 MG TAB PO SCH ×2 (09:13→21:00)
--- NOTE | 2016-09-22 11:06 | HHI.PR ---
Subjective Remarks Follow-up for MS exacerbation, psychosis. Patient asked about being restarted on his outpatient MS medication. I informed him neurologist advised to follow outpatient. Objective Vitals Vital Signs Date Time Temp Pulse Resp B/P Pulse Ox O2 Delivery O2 Flow Rate FiO2 09/22/16 08:00 98.4 88 20 146/95 98 09/21/16 20:00 96.2 78 19 119/81 97 I/O 09/21/16 09/21/16 09/21/16 09/22/16 09/22/16 09/22/16 07:00 15:00 23:00 07:00 15:00 23:00 Intake Total 240 ml 480 ml 360 ml Output Total 400 ml 400 ml Balance -160 ml 480 ml 360 ml -400 ml Intake Oral 240 ml 480 ml 360 ml Output Urine Total 400 ml 400 ml # Voids 2 2 Objective Remarks GENERAL: Well-nourished, well-developed patient in apparent distress. CARDIOVASCULAR: Regular rate and rhythm. RESPIRATORY: No accessory muscle use. Clear to auscultation. Breath sounds equal bilaterally. GASTROINTESTINAL: Abdomen soft, non-tender, non-distended. NEUROLOGICAL: Awake and alert. Normal speech. PSYCHIATRIC: Appropriate mood and affect. Urinary Catheter: No Vascular Central Line Catheter: No A/P Problem List: (1) Abscess of right arm ICD Code: L02.413 Status: Resolved (2) Exacerbation of multiple sclerosis ICD Code: G35 Status: Acute (3) Brief psychotic disorder ICD Code: F23 Status: Acute (4) Cognitive impairment ICD Code: R41.89 Status: Acute Assessment and Plan 41-year-old male admitted with multiple sclerosis exacerbation and acute psychosis. Abscess: Resolved. -Warm compress applied and spontaneous drainage occurred. Wound culture with MRSA. -S/p Bactrim DS q12 hours x 5 days Ankle swelling: Likely attributed to dependent positioning. Patient advised to elevate legs. Doppler US right leg negative for DVT. Multiple sclerosis with exacerbation: exacerbation resolved. -Completed steroids -Neurology following, recommends outpatient rehab -Continue OT and PT -[facility] 5/325 mg q12h only prn for pain 4-10. Percocet was discontinued. Acute psychosis: Improved -09/13: Per nurse patient slamming drawers, talking to an imaginary person. -09/14: Psychiatry reevaluated patient and increased Zyprexa to 10 mg bid Cognitive impairment: Stable. Patient is still disoriented. -Speech therapy assessed patient and he has MOCA score of 12/30 indicating moderate to severe cognitive impairment, states likely related to psych issues. Hyperglycemia: Resolved, likely steroid related GI prophylaxis: Continue bowel regimen. DVT prophylaxis: SCDs, heparin Discharge Planning 09/21/16: Per CM patient received PASSR and patient is appropriate for SNF; [facility] to evaluate. 09/22/16: Will need to refer to neurology on discharge. Yuli Marte Sep 22, 2016 11:06
[2016-09-22 20:00] VITALS: BP 113/51; PULSE 97; RESP 18; TEMP 97.7; O2SAT 96
[2016-09-23] MEDS: HEPARIN SODIUM - SQ 10,000 UNITS/ML VIAL SQ SCH ×3 (05:58→21:11)
[2016-09-23 08:00] VITALS: BP 157/95; PULSE 70; RESP 18; TEMP 97.6; O2SAT 98
[2016-09-23] MEDS: DOCUSATE SODIUM 50 MG/SENNA 8.6 MG TAB PO SCH ×2 (09:00→21:08)
[2016-09-23] MEDS: OLANZapine ODT 5 MG TAB PO SCH ×2 (09:21→21:00)
[2016-09-23] MEDS: PANTOPRAZOLE SOD 40 MG DELAYED RELEASE TAB PO SCH (09:21)
--- NOTE | 2016-09-23 10:16 | HHI.PR ---
Subjective Remarks Follow-up for MS exacerbation, psychosis. No acute complaints. Objective Vitals Vital Signs Date Time Temp Pulse Resp B/P Pulse Ox O2 Delivery O2 Flow Rate FiO2 09/23/16 08:00 97.6 70 18 157/95 98 09/22/16 20:00 97.7 97 18 113/51 96 I/O 09/22/16 09/22/16 09/22/16 09/23/16 09/23/16 09/23/16 07:00 15:00 23:00 07:00 15:00 23:00 Intake Total 360 ml 1250 ml 960 ml 720 ml Output Total 1350 ml 650 ml 1400 ml Balance 360 ml -100 ml 310 ml -680 ml Intake Oral 360 ml 1250 ml 720 ml 720 ml Oral Supplement 240 ml Output Urine Total 1350 ml 650 ml 1400 ml # Voids 2 3 3 # Bowel Movements 1 0 0 Objective Remarks GENERAL: Well-nourished, well-developed patient in apparent distress. CARDIOVASCULAR: Regular rate and rhythm. RESPIRATORY: No accessory muscle use. Clear to auscultation. Breath sounds equal bilaterally. GASTROINTESTINAL: Abdomen non-tender, non-distended. NEUROLOGICAL: Awake and alert. Knows he is at the hospital. Does not know the city, month, year, or president. Normal speech. PSYCHIATRIC: Appropriate mood and affect. Urinary Catheter: No Vascular Central Line Catheter: No A/P Problem List: (1) Abscess of right arm ICD Code: L02.413 Status: Resolved (2) Exacerbation of multiple sclerosis ICD Code: G35 Status: Acute (3) Brief psychotic disorder ICD Code: F23 Status: Acute (4) Cognitive impairment ICD Code: R41.89 Status: Acute Assessment and Plan 41-year-old male admitted with multiple sclerosis exacerbation and acute psychosis. Abscess: Resolved. -Warm compress applied and spontaneous drainage occurred. Wound culture with MRSA. -S/p Bactrim DS q12 hours x 5 days Ankle swelling: Likely attributed to dependent positioning. Patient advised to elevate legs. Doppler US right leg negative for DVT. Multiple sclerosis with exacerbation: exacerbation resolved. -Completed steroids -Neurology following, recommends outpatient rehab -Continue OT and PT -[place] 5/325 mg q12h only prn for pain 4-10. Percocet was discontinued. Acute psychosis: Improved -09/13: Per nurse patient slamming drawers, talking to an imaginary person. -09/14: Psychiatry reevaluated patient and increased Zyprexa to 10 mg bid Cognitive impairment: Stable. Patient is still disoriented. -Speech therapy assessed patient and he has MOCA score of 12/30 indicating moderate to severe cognitive impairment, states likely related to psych issues. Hyperglycemia: Resolved, likely steroid related GI prophylaxis: Continue bowel regimen. DVT prophylaxis: SCDs, heparin Discharge Planning 09/21/16: Per CM patient received PASSR and patient is appropriate for SNF 09/23/16: Requested [facility] to evaluate for placement. Yuli Marte Sep 23, 2016 10:16
[2016-09-23 20:00] VITALS: BP 121/78; PULSE 87; RESP 18; TEMP 96.8; O2SAT 97
[2016-09-24] MEDS: HEPARIN SODIUM - SQ 10,000 UNITS/ML VIAL SQ SCH ×3 (06:21→21:54)
[2016-09-24 08:00] VITALS: BP 145/95; PULSE 96; RESP 18; TEMP 97.8; O2SAT 98
[2016-09-24] MEDS: OLANZapine ODT 5 MG TAB PO SCH ×2 (08:05→21:00)
[2016-09-24] MEDS: DOCUSATE SODIUM 50 MG/SENNA 8.6 MG TAB PO SCH ×2 (08:05→21:54)
[2016-09-24] MEDS: PANTOPRAZOLE SOD 40 MG DELAYED RELEASE TAB PO SCH (08:05)
--- NOTE | 2016-09-24 09:58 | HHI.PR ---
Subjective Remarks Follow-up for MS exacerbation, psychosis. Patient again asks about being on medications for his MS; indicates concern about having a flare. Objective Vitals Vital Signs Date Time Temp Pulse Resp B/P Pulse Ox O2 Delivery O2 Flow Rate FiO2 09/23/16 20:00 96.8 87 18 121/78 97 I/O 09/23/16 09/23/16 09/23/16 09/24/16 09/24/16 09/24/16 07:00 15:00 23:00 07:00 15:00 23:00 Intake Total 720 ml 930 ml 720 ml 480 ml Output Total 1400 ml 1075 ml 2 ml 1600 ml Balance -680 ml -145 ml 718 ml -1120 ml Intake Oral 720 ml 930 ml 720 ml 480 ml Output Urine Total 1400 ml 1075 ml 2 ml 1600 ml # Voids 3 # Bowel Movements 0 0 0 0 Objective Remarks GENERAL: Well-nourished, well-developed patient in apparent distress. CARDIOVASCULAR: Regular rate and rhythm. RESPIRATORY: No accessory muscle use. Clear to auscultation. Breath sounds equal bilaterally. GASTROINTESTINAL: Abdomen non-tender. NEUROLOGICAL: Awake and alert. Knows he is at the hospital. Knows the president. Does not know the city, month, or year. Normal speech. PSYCHIATRIC: Appropriate mood and affect. Urinary Catheter: No Vascular Central Line Catheter: No A/P Problem List: (1) Abscess of right arm ICD Code: L02.413 Status: Resolved (2) Exacerbation of multiple sclerosis ICD Code: G35 Status: Acute (3) Brief psychotic disorder ICD Code: F23 Status: Acute (4) Cognitive impairment ICD Code: R41.89 Status: Acute Assessment and Plan 41-year-old male admitted with multiple sclerosis exacerbation and acute psychosis. Abscess: Resolved. -Warm compress applied and spontaneous drainage occurred. Wound culture with MRSA. -S/p Bactrim DS q12 hours x 5 days Ankle swelling: Likely attributed to dependent positioning. Patient advised to elevate legs. Doppler US right leg negative for DVT. Multiple sclerosis with exacerbation: exacerbation resolved. -Completed steroids -Neurology following, recommends outpatient rehab -Continue OT and PT -[place] 5/325 mg q12h only prn for pain 4-10. Percocet was discontinued. -09/24: Patient again asks about starting back his MS meds, but neurology indicates on 09/03 that patient will need outpatient neurological care of which I informed patient. Acute psychosis: Improved -09/13: Per nurse patient slamming drawers, talking to an imaginary person. -09/14: Psychiatry reevaluated patient and increased Zyprexa to 10 mg bid Cognitive impairment: Stable. Patient is still disoriented. -Speech therapy assessed patient and he has MOCA score of 12/30 indicating moderate to severe cognitive impairment, states likely related to psych issues. Hyperglycemia: Resolved, likely steroid related GI prophylaxis: Continue bowel regimen. DVT prophylaxis: SCDs, heparin Discharge Planning 09/21/16: Per CM patient received PASSR and patient is appropriate for SNF 09/23/16: Requested [facility] to evaluate for placement. Yuli Marte Sep 24, 2016 09:58
[2016-09-24 20:44] VITALS: BP 137/74; PULSE 95; RESP 20; TEMP 97.7; O2SAT 96
[2016-09-25] MEDS: HEPARIN SODIUM - SQ 10,000 UNITS/ML VIAL SQ SCH ×3 (06:00→22:00)
[2016-09-25 08:00] VITALS: BP 128/82; PULSE 91; RESP 18; TEMP 97.6; O2SAT 96
[2016-09-25] MEDS: PANTOPRAZOLE SOD 40 MG DELAYED RELEASE TAB PO SCH (08:18)
[2016-09-25] MEDS: OLANZapine ODT 5 MG TAB PO SCH ×2 (08:18→22:30)
[2016-09-25] MEDS: DOCUSATE SODIUM 50 MG/SENNA 8.6 MG TAB PO SCH ×2 (08:18→21:00)
--- NOTE | 2016-09-25 09:44 | HHI.PR ---
Subjective Remarks Follow-up for MS exacerbation, psychosis. Patient asks when he is going to be able to leave. He asked if he could sign out and I told him he is not able to as he is disoriented and it would be unsafe. Objective Vitals Vital Signs Date Time Temp Pulse Resp B/P Pulse Ox O2 Delivery O2 Flow Rate FiO2 09/25/16 08:00 97.6 91 18 128/82 96 09/24/16 20:44 97.7 95 20 137/74 96 I/O 09/24/16 09/24/16 09/24/16 09/25/16 09/25/16 09/25/16 07:00 15:00 23:00 07:00 15:00 23:00 Intake Total 480 ml 1442 ml Output Total 1600 ml 400 ml Balance -1120 ml 1442 ml -400 ml Intake Oral 480 ml 1442 ml Output Urine Total 1600 ml 400 ml # Voids 4 1 # Bowel Movements 0 1 Objective Remarks GENERAL: Well-nourished, well-developed patient in apparent distress. SKIN: Previous abscess site to R elbow healed. No erythema. CARDIOVASCULAR: Regular rate and rhythm. RESPIRATORY: No accessory muscle use. Clear to auscultation. Breath sounds equal bilaterally. NEUROLOGICAL: Awake and alert. Normal speech. PSYCHIATRIC: Appropriate mood and affect. Urinary Catheter: No Vascular Central Line Catheter: No A/P Problem List: (1) Abscess of right arm ICD Code: L02.413 Status: Resolved (2) Exacerbation of multiple sclerosis ICD Code: G35 Status: Acute (3) Brief psychotic disorder ICD Code: F23 Status: Acute (4) Cognitive impairment ICD Code: R41.89 Status: Acute Assessment and Plan 41-year-old male admitted with multiple sclerosis exacerbation and acute psychosis. Abscess: Resolved. -Warm compress applied and spontaneous drainage occurred. Wound culture with MRSA. -S/p Bactrim DS q12 hours x 5 days Ankle swelling: Likely attributed to dependent positioning. Patient advised to elevate legs. Doppler US right leg negative for DVT. Multiple sclerosis with exacerbation: exacerbation resolved. -Completed steroids -Neurology evaluated patient, recommendations appreciated -Continue OT and PT -[facility] 5/325 mg q12h only prn for pain 4-10. Percocet was discontinued. -09/24: Patient again asks about starting back his MS meds, but neurology indicates on 09/03 that patient will need outpatient neurological care of which I informed patient. Acute psychosis: Improved -09/13: Per nurse patient slamming drawers, talking to an imaginary person. -09/14: Psychiatry reevaluated patient and increased Zyprexa to 10 mg bid Cognitive impairment: Stable. Patient is still disoriented. -Speech therapy assessed patient and he has MOCA score of 12/30 indicating moderate to severe cognitive impairment, states likely related to psych issues. Hyperglycemia: Resolved, likely steroid related GI prophylaxis: Continue bowel regimen. DVT prophylaxis: SCDs, heparin Discharge Planning 09/21/16: Per CM patient received PASSR and patient is appropriate for SNF 09/23/16: Requested [facility] to evaluate for placement. Yuli Marte Sep 25, 2016 09:44
[2016-09-25 20:00] VITALS: BP 137/85; PULSE 89; RESP 19; TEMP 97.5; O2SAT 98
[2016-09-25] MEDS: ACETAMINOPHEN 325 MG TAB PO PRN (22:31)
[2016-09-26] MEDS: HEPARIN SODIUM - SQ 10,000 UNITS/ML VIAL SQ SCH ×3 (06:00→22:14)
[2016-09-26] MEDS: PANTOPRAZOLE SOD 40 MG DELAYED RELEASE TAB PO SCH (07:50)
[2016-09-26] MEDS: ACETAMINOPHEN 325 MG TAB PO PRN (07:50)
[2016-09-26] MEDS: OLANZapine ODT 5 MG TAB PO SCH ×2 (07:50→22:14)
[2016-09-26] MEDS: DOCUSATE SODIUM 50 MG/SENNA 8.6 MG TAB PO SCH ×2 (07:51→22:14)
[2016-09-26 08:00] VITALS: BP 141/88; PULSE 74; RESP 19; TEMP 97.6; O2SAT 99
--- NOTE | 2016-09-26 09:20 | HHI.PR ---
Subjective Remarks Follow-up for MS exacerbation, psychosis. Patient states he is having 8/10 pain in his back and legs. Objective Vitals Vital Signs Date Time Temp Pulse Resp B/P Pulse Ox O2 Delivery O2 Flow Rate FiO2 09/26/16 08:00 97.6 74 19 141/88 99 09/25/16 20:00 97.5 89 19 137/85 98 I/O 09/25/16 09/25/16 09/25/16 09/26/16 09/26/16 09/26/16 07:00 15:00 23:00 07:00 15:00 23:00 Intake Total 960 ml 240 ml 240 ml Output Total 400 ml 1000 ml 500 ml 500 ml Balance -400 ml -40 ml -260 ml -260 ml Intake Oral 960 ml 240 ml 240 ml Output Urine Total 400 ml 1000 ml 500 ml 500 ml # Voids 1 # Bowel Movements 1 Objective Remarks GENERAL: Well-nourished, well-developed patient in apparent distress. CARDIOVASCULAR: Regular rate and rhythm. RESPIRATORY: No accessory muscle use. Clear to auscultation. Breath sounds equal bilaterally. GASTROINTESTINAL: Abdomen soft, non-tender, non-distended. NEUROLOGICAL: Awake and alert. Normal speech. PSYCHIATRIC: Talking to himself in the room. Normal mood and affect. Urinary Catheter: No Vascular Central Line Catheter: No A/P Problem List: (1) Abscess of right arm ICD Code: L02.413 Status: Resolved (2) Exacerbation of multiple sclerosis ICD Code: G35 Status: Acute (3) Brief psychotic disorder ICD Code: F23 Status: Acute (4) Cognitive impairment ICD Code: R41.89 Status: Acute Assessment and Plan 41-year-old male admitted with multiple sclerosis exacerbation and acute psychosis. Abscess: Resolved. -Warm compress applied and spontaneous drainage occurred. Wound culture with MRSA. -S/p Bactrim DS q12 hours x 5 days Ankle swelling: Likely attributed to dependent positioning. Patient advised to elevate legs. Doppler US right leg negative for DVT. Multiple sclerosis with exacerbation: exacerbation resolved. -Completed steroids -Neurology evaluated patient, recommendations appreciated -Continue OT and PT -[facility] discontinued on 09/14. -09/24: Patient again asks about starting back his MS meds, but neurology indicates on 09/03 that patient will need outpatient neurological care of which I informed patient. -09/26: Patient complains of pain, but nurse informed me later patient was fine after receiving Tylenol. Will not be restarting any narcotic pain medication at this time. Acute psychosis: Improved -09/13: Per nurse patient slamming drawers, talking to an imaginary person. -09/14: Psychiatry reevaluated patient and increased Zyprexa to 10 mg bid Cognitive impairment: Stable. Patient is still disoriented. -Speech therapy assessed patient and he has MOCA score of 12/30 indicating moderate to severe cognitive impairment, states likely related to psych issues. Hyperglycemia: Resolved, likely steroid related GI prophylaxis: Continue bowel regimen. DVT prophylaxis: SCDs, heparin Discharge Planning 09/21/16: Per CM patient received PASSR and patient is appropriate for SNF 09/23/16: Requested [facility] to evaluate for placement. Yuli Marte Sep 26, 2016 09:20
[2016-09-26 20:00] VITALS: BP 135/82; PULSE 82; RESP 22; TEMP 97.5; O2SAT 98
[2016-09-27] MEDS: HEPARIN SODIUM - SQ 10,000 UNITS/ML VIAL SQ SCH ×3 (05:42→21:15)
[2016-09-27 08:00] VITALS: BP 132/14; PULSE 89; RESP 18; TEMP 97; O2SAT 96
[2016-09-27] MEDS: PANTOPRAZOLE SOD 40 MG DELAYED RELEASE TAB PO SCH (08:08)
[2016-09-27] MEDS: DOCUSATE SODIUM 50 MG/SENNA 8.6 MG TAB PO SCH ×2 (08:08→21:17)
[2016-09-27] MEDS: OLANZapine ODT 5 MG TAB PO SCH ×2 (08:08→21:17)
[2016-09-27] MEDS: ACETAMINOPHEN 325 MG TAB PO PRN (08:10)
--- NOTE | 2016-09-27 10:50 | HHI.PR ---
Subjective Remarks Follow-up for MS exacerbation, psychosis. Patient states he is having pain in his back and right leg and states his right leg is swollen. He was given Tylenol shortly before my examination and states it does not help. He states his pain is currently a 9/10 but was a 10/10. He also requests size 15 sneakers to walk because his feet hurt, states he has made this request to PT. Objective Vitals Vital Signs Date Time Temp Pulse Resp B/P Pulse Ox O2 Delivery O2 Flow Rate FiO2 09/27/16 08:00 97.0 89 18 132/14 96 09/26/16 20:00 97.5 82 22 135/82 98 I/O 09/26/16 09/26/16 09/26/16 09/27/16 09/27/16 09/27/16 07:00 15:00 23:00 07:00 15:00 23:00 Intake Total 240 ml 100 ml 480 ml 480 ml Output Total 500 ml 900 ml 1650 ml Balance -260 ml 100 ml -420 ml -1170 ml Intake Oral 240 ml 100 ml 480 ml 480 ml Output Urine Total 500 ml 900 ml 1650 ml Objective Remarks GENERAL: Well-nourished, well-developed patient in apparent distress. CARDIOVASCULAR: Regular rate and rhythm. RESPIRATORY: No accessory muscle use. Clear to auscultation. Breath sounds equal bilaterally. MUSCULOSKELETAL: Patient cannot lay completely flat and cannot straighten legs out completely. Swelling to B/L ankles, worse on the R. Tender over R calf. Non- tender L calf. NEUROLOGICAL: Awake and alert. Normal speech. PSYCHIATRIC: Normal mood and affect. Urinary Catheter: No Vascular Central Line Catheter: No A/P Problem List: (1) Abscess of right arm ICD Code: L02.413 Status: Resolved (2) Exacerbation of multiple sclerosis ICD Code: G35 Status: Acute (3) Brief psychotic disorder ICD Code: F23 Status: Acute (4) Cognitive impairment ICD Code: R41.89 Status: Acute Assessment and Plan 41-year-old male admitted with multiple sclerosis exacerbation and acute psychosis. Abscess: Resolved. -Warm compress applied and spontaneous drainage occurred. Wound culture with MRSA. -S/p Bactrim DS q12 hours x 5 days Ankle swelling: Worse on the right. Doppler US right leg 09/14 negative for DVT. Likely attributed to dependent positioning. Patient advised to elevate legs. Multiple sclerosis with exacerbation: exacerbation resolved. -Completed steroids -Neurology evaluated patient, recommendations appreciated -Continue OT and PT -[facility] discontinued on 09/14. -09/24: Patient again asks about starting back his MS meds, but neurology indicates on 09/03 that patient will need outpatient neurological care of which I informed patient. -09/27: Patient again complains of pain in his back and legs. Will start ibuprofen 600 mg prn pain 4-10. Will avoid resuming narcotics. If pain continues will need to consider alternative agent for neurogenic pain. May also need to consider medication for spasticity. -PT note mentions patient desiring to wear sneakers, but did not state if this would be ok. Will need to discuss with PT. If ok, will try to obtain sneakers for patient. Acute psychosis: Improved -09/13: Per nurse patient slamming drawers, talking to an imaginary person. -09/14: Psychiatry reevaluated patient and increased Zyprexa to 10 mg bid Cognitive impairment: Stable. Patient is still disoriented. -Speech therapy assessed patient and he has MOCA score of 12/30 indicating moderate to severe cognitive impairment, states likely related to psych issues. Hyperglycemia: Resolved, likely steroid related GI prophylaxis: Continue bowel regimen. DVT prophylaxis: SCDs, heparin Discharge Planning 09/21/16: Per CM patient received PASSR and patient is appropriate for SNF 09/23/16: Requested [facility] to evaluate for placement. Yuli Marte Sep 27, 2016 10:50
[2016-09-27 20:00] VITALS: BP 142/96; PULSE 102; RESP 18; TEMP 97.4; O2SAT 97
[2016-09-27] MEDS: IBUPROFEN 600 MG TAB PO PRN (21:24)
[2016-09-28] MEDS: HEPARIN SODIUM - SQ 10,000 UNITS/ML VIAL SQ SCH ×3 (06:00→21:05)
[2016-09-28 08:00] VITALS: BP 128/101; PULSE 79; RESP 18; TEMP 96.2; O2SAT 97
[2016-09-28] MEDS: IBUPROFEN 600 MG TAB PO PRN (09:41)
[2016-09-28] MEDS: DOCUSATE SODIUM 50 MG/SENNA 8.6 MG TAB PO SCH ×2 (09:41→21:05)
[2016-09-28] MEDS: PANTOPRAZOLE SOD 40 MG DELAYED RELEASE TAB PO SCH (09:41)
[2016-09-28] MEDS: OLANZapine ODT 5 MG TAB PO SCH ×2 (09:41→21:05)
--- NOTE | 2016-09-28 10:31 | HHI.PR ---
Subjective Remarks Patient seen and examined today for follow-up on MS, psychosis. Patient doing much better. Awaiting acceptance at skilled facility. Patient is getting frustrated this time because he is tired be in the hospital and wants to go to a facility. Objective Vitals Vital Signs Date Time Temp Pulse Resp B/P Pulse Ox O2 Delivery O2 Flow Rate FiO2 09/28/16 08:00 96.2 79 18 128/101 97 09/27/16 20:00 97.4 102 18 142/96 97 I/O 09/27/16 09/27/16 09/27/16 09/28/16 09/28/16 09/28/16 07:00 15:00 23:00 07:00 15:00 23:00 Intake Total 480 ml 1440 ml 960 ml Output Total 1650 ml 300 ml 1800 ml Balance -1170 ml 1140 ml -840 ml Intake Oral 480 ml 1440 ml 960 ml Output Urine Total 1650 ml 300 ml 1800 ml # Voids 4 1 # Bowel Movements 0 0 Objective Remarks GENERAL: Well-developed, well-nourished, in no acute distress. alert and orientated HEENT: Head is normocephalic without any lesions or masses noted. Facial features are symmetric. Eyes: Extraocular muscles are intact. Conjunctivae were clear. NECK: Supple without any masses. Trachea midline no deviation. No JVD, CARDIAC: Regular rhythm, regular rate. S1/S2 are heard. No murmurs gallops or rubs. LUNGS: Clear to auscultation bilaterally. No wheeze, rhonchi or rales. No use of accessory muscles on inspiration or expiration. ABDOMEN: Soft, nontender. Nondistended. Bowel sounds heard in all 4 quadrants. No organomegaly or masses. Negative rebound, negative guarding EXTREMITIES: 1+ pitting edema noted in the right lower extremity, pulses are equal bilaterally. No cyanosis or clubbing. NEUROLOGY: Mood and affect appear appropriate. Cranial nerves II through XII grossly intact. Moving all extremities, speech is clear Urinary Catheter: No Vascular Central Line Catheter: No A/P Assessment and Plan Acute psychosis: Significantly improved with increase of medication Continue Zyprexa 10 mg twice daily Psychiatry following the patient. Cognitive impairment: Improved. Speech therapy assessed patient and he has MOCA score of 12/30 indicating moderate to severe cognitive impairment. Speech therapy reassessed the patient still indicating patient MOCA score has not changed and they spoke with psychiatry who believes that his cognition issue is related to his psychiatric problems Right lower extremity edema, improving Ultrasound performed which did not indicate any acute abnormality Abscess right elbow, treated Warm compress was applied yesterday and spontaneous drainage occurred. Wound culture with MRSA Completed Bactrim every 12 hours which is sensitive on culture Multiple sclerosis with exacerbation: exacerbation resolved. Completed inpatient treatment Neurology evaluated patient and recommended outpatient management GI prophylaxis: Continue bowel regimen. DVT prophylaxis: SCDs, subcutaneous heparin Discharge Planning Discharge planning per case management, apparently waiting approval from alf facility Adrien Marquez Sep 28, 2016 10:31
[2016-09-28 20:00] VITALS: BP 133/90; PULSE 97; RESP 18; TEMP 98.4; O2SAT 97
[2016-09-29] MEDS: HEPARIN SODIUM - SQ 10,000 UNITS/ML VIAL SQ SCH ×3 (06:18→20:12)
[2016-09-29 08:00] VITALS: BP 128/86; PULSE 72; RESP 19; TEMP 98; O2SAT 95
[2016-09-29] MEDS: PANTOPRAZOLE SOD 40 MG DELAYED RELEASE TAB PO SCH (09:22)
[2016-09-29] MEDS: DOCUSATE SODIUM 50 MG/SENNA 8.6 MG TAB PO SCH ×2 (09:22→20:11)
[2016-09-29] MEDS: OLANZapine ODT 5 MG TAB PO SCH ×2 (09:23→20:11)
[2016-09-29] MEDS: IBUPROFEN 600 MG TAB PO PRN ×2 (09:28→18:54)
--- NOTE | 2016-09-29 13:24 | HHI.PR ---
Subjective Remarks Patient seen and examined today for follow-up on psychosis, abscess, MS. Patient is doing well. He is in the hallway in his wheelchair. Patient denies any new complaints. Awaiting for case management to discharge patient to [facility] Objective Vitals Vital Signs Date Time Temp Pulse Resp B/P Pulse Ox O2 Delivery O2 Flow Rate FiO2 09/29/16 08:00 98.0 72 19 128/86 95 09/28/16 20:00 98.4 97 18 133/90 97 I/O 09/28/16 09/28/16 09/28/16 09/29/16 09/29/16 09/29/16 07:00 15:00 23:00 07:00 15:00 23:00 Intake Total 960 ml 1150 ml 480 ml 480 ml Output Total 1800 ml 950 ml 400 ml 800 ml Balance -840 ml 200 ml 80 ml -320 ml Intake Oral 960 ml 1150 ml 480 ml 480 ml Output Urine Total 1800 ml 950 ml 400 ml 800 ml # Voids 1 2 2 # Bowel Movements 0 1 0 0 Objective Remarks GENERAL: Well-developed, well-nourished, in no acute distress. alert and orientated HEENT: Head is normocephalic without any lesions or masses noted. Facial features are symmetric. Eyes: Extraocular muscles are intact. Conjunctivae were clear. NECK: Supple without any masses. Trachea midline no deviation. No JVD, CARDIAC: Regular rhythm, regular rate. S1/S2 are heard. No murmurs gallops or rubs. LUNGS: Clear to auscultation bilaterally. No wheeze, rhonchi or rales. No use of accessory muscles on inspiration or expiration. ABDOMEN: Soft, nontender. Nondistended. Bowel sounds heard in all 4 quadrants. No organomegaly or masses. Negative rebound, negative guarding EXTREMITIES: 1+ pitting edema noted in the right lower extremity, pulses are equal bilaterally. No cyanosis or clubbing. NEUROLOGY: Mood and affect appear appropriate. Cranial nerves II through XII grossly intact. Moving all extremities, speech is clear Urinary Catheter: No Vascular Central Line Catheter: No A/P Assessment and Plan Acute psychosis: Significantly improved with increase of medication Continue Zyprexa 10 mg twice daily Psychiatry following the patient. Cognitive impairment: Improved. Speech therapy assessed patient and he has MOCA score of 12/30 indicating moderate to severe cognitive impairment. Speech therapy reassessed the patient still indicating patient MOCA score has not changed and they spoke with psychiatry who believes that his cognition issue is related to his psychiatric problems Right lower extremity edema, improving Ultrasound performed which did not indicate any acute abnormality Abscess right elbow, treated Warm compress was applied yesterday and spontaneous drainage occurred. Wound culture with MRSA Completed Bactrim every 12 hours which is sensitive on culture Multiple sclerosis with exacerbation: exacerbation resolved. Completed inpatient treatment Neurology evaluated patient and recommended outpatient management GI prophylaxis: Continue bowel regimen. DVT prophylaxis: SCDs, subcutaneous heparin Discharge Planning Discharge planning per case management, apparently waiting approval from [facility] Adrien Marquez Sep 29, 2016 13:24
[2016-09-29 20:00] VITALS: BP 145/83; PULSE 20; RESP 20; TEMP 97.4; O2SAT 96
[2016-09-30] MEDS: HEPARIN SODIUM - SQ 10,000 UNITS/ML VIAL SQ SCH ×2 (06:22→13:38)
[2016-09-30 08:00] VITALS: BP 134/81; PULSE 91; RESP 18; TEMP 97.6; O2SAT 96
[2016-09-30] MEDS: PANTOPRAZOLE SOD 40 MG DELAYED RELEASE TAB PO SCH (08:58)
[2016-09-30] MEDS: DOCUSATE SODIUM 50 MG/SENNA 8.6 MG TAB PO SCH (08:59)
[2016-09-30] MEDS: OLANZapine ODT 5 MG TAB PO SCH (08:59)
--- NOTE | 2016-09-30 09:10 | HHI.PR ---
Subjective Remarks Patient seen and examined today for follow-up on a mass, psychosis. Patient is doing well at this time. Awaiting case management to arrange discharge. Patient indicates that he has a foul smell coming from his private area. Objective Vitals Vital Signs Date Time Temp Pulse Resp B/P Pulse Ox O2 Delivery O2 Flow Rate FiO2 09/29/16 20:10 18 09/29/16 20:00 97.4 20 20 145/83 96 I/O 09/29/16 09/29/16 09/29/16 09/30/16 09/30/16 09/30/16 07:00 15:00 23:00 07:00 15:00 23:00 Intake Total 480 ml 300 ml 240 ml 480 ml Output Total 800 ml 1000 ml Balance -320 ml 300 ml 240 ml -520 ml Intake Oral 480 ml 300 ml 240 ml 480 ml Output Urine Total 800 ml 1000 ml # Voids 2 2 # Bowel Movements 0 0 Objective Remarks GENERAL: Well-developed, well-nourished, in no acute distress. alert and orientated HEENT: Head is normocephalic without any lesions or masses noted. Facial features are symmetric. Eyes: Extraocular muscles are intact. Conjunctivae were clear. NECK: Supple without any masses. Trachea midline no deviation. No JVD, CARDIAC: Regular rhythm, regular rate. S1/S2 are heard. No murmurs gallops or rubs. LUNGS: Clear to auscultation bilaterally. No wheeze, rhonchi or rales. No use of accessory muscles on inspiration or expiration. ABDOMEN: Soft, nontender. Nondistended. Bowel sounds heard in all 4 quadrants. No organomegaly or masses. Negative rebound, negative guarding EXTREMITIES: 1+ pitting edema noted in the right lower extremity, pulses are equal bilaterally. No cyanosis or clubbing. NEUROLOGY: Mood and affect appear appropriate. Cranial nerves II through XII grossly intact. Moving all extremities, speech is clear Urinary Catheter: No Vascular Central Line Catheter: No A/P Assessment and Plan Acute psychosis: Significantly improved with increase of medication Continue Zyprexa 10 mg twice daily Psychiatry following the patient. Cognitive impairment: Improved. Speech therapy assessed patient and he has MOCA score of 12/30 indicating moderate to severe cognitive impairment. Speech therapy reassessed the patient still indicating patient MOCA score has not changed and they spoke with psychiatry who believes that his cognition issue is related to his psychiatric problems Tinea infection noted inguinal, waistline. Nystatin cream for 2 weeks Right lower extremity edema, improving Ultrasound performed which did not indicate any acute abnormality Abscess right elbow, treated Warm compress was applied yesterday and spontaneous drainage occurred. Wound culture with MRSA Completed Bactrim every 12 hours which is sensitive on culture Multiple sclerosis with exacerbation: exacerbation resolved. Completed inpatient treatment Neurology evaluated patient and recommended outpatient management GI prophylaxis: Continue bowel regimen. DVT prophylaxis: SCDs, subcutaneous heparin Discharge Planning Discharge planning per case management, apparently waiting approval from [facility] facility Adrien Marquez Sep 30, 2016 09:10
[2016-09-30] MEDS ORDERED: DOCUSATE SODIUM 50 MG/SENNA 8.6 MG TAB PO PRN (09:15)
[2016-09-30] MEDS: IBUPROFEN 600 MG TAB PO PRN (13:37)
[2016-09-30 20:00] VITALS: BP 144/84; PULSE 90; RESP 20; TEMP 95.9; O2SAT 97
[2016-10-01] MEDS: NYSTATIN 100,000 UNIT/GM CREAM 15 GM TOPICAL SCH ×3 (00:11→22:01)
[2016-10-01] MEDS: IBUPROFEN 600 MG TAB PO PRN ×3 (00:11→21:59)
[2016-10-01] MEDS: HEPARIN SODIUM - SQ 10,000 UNITS/ML VIAL SQ SCH ×4 (00:12→22:01)
[2016-10-01] MEDS: OLANZapine ODT 5 MG TAB PO SCH ×3 (00:17→21:59)
[2016-10-01 08:00] VITALS: BP 135/79; PULSE 93; RESP 18; TEMP 97; O2SAT 97
[2016-10-01] MEDS: PANTOPRAZOLE SOD 40 MG DELAYED RELEASE TAB PO SCH (08:10)
--- NOTE | 2016-10-01 08:13 | HHI.PR ---
Subjective Remarks Patient seen and examined today for follow-up on MS, psychosis. Patient is doing well. Denies any new complaints today. Awaiting approval from correction facility for discharge Objective Vitals Vital Signs Date Time Temp Pulse Resp B/P Pulse Ox O2 Delivery O2 Flow Rate FiO2 09/30/16 20:00 95.9 90 20 144/84 97 09/30/16 14:37 18 I/O 09/30/16 09/30/16 09/30/16 10/01/16 10/01/16 10/01/16 07:00 15:00 23:00 07:00 15:00 23:00 Intake Total 480 ml 900 ml 600 ml 720 ml Output Total 1000 ml 800 ml 900 ml 1850 ml Balance -520 ml 100 ml -300 ml -1130 ml Intake Oral 480 ml 900 ml 600 ml 720 ml Output Urine Total 1000 ml 800 ml 900 ml 1850 ml # Voids 1 4 # Bowel Movements 0 Objective Remarks GENERAL: Well-developed, well-nourished, in no acute distress. alert and orientated HEENT: Head is normocephalic without any lesions or masses noted. Facial features are symmetric. Eyes: Extraocular muscles are intact. Conjunctivae were clear. NECK: Supple without any masses. Trachea midline no deviation. No JVD, CARDIAC: Regular rhythm, regular rate. S1/S2 are heard. No murmurs gallops or rubs. LUNGS: Clear to auscultation bilaterally. No wheeze, rhonchi or rales. No use of accessory muscles on inspiration or expiration. ABDOMEN: Soft, nontender. Nondistended. Bowel sounds heard in all 4 quadrants. No organomegaly or masses. Negative rebound, negative guarding EXTREMITIES: 1+ pitting edema noted in the right lower extremity, pulses are equal bilaterally. No cyanosis or clubbing. NEUROLOGY: Mood and affect appear appropriate. Cranial nerves II through XII grossly intact. Moving all extremities, speech is clear Urinary Catheter: No Vascular Central Line Catheter: No A/P Assessment and Plan Acute psychosis: Significantly improved with increase of medication Continue Zyprexa 10 mg twice daily Psychiatry following the patient. Cognitive impairment: Improved. Speech therapy assessed patient and he has MOCA score of 12/30 indicating moderate to severe cognitive impairment. Speech therapy reassessed the patient still indicating patient MOCA score has not changed and they spoke with psychiatry who believes that his cognition issue is related to his psychiatric problems Tinea infection noted inguinal, waistline. Nystatin cream for 2 weeks Right lower extremity edema, improving Ultrasound performed which did not indicate any acute abnormality Abscess right elbow, treated Warm compress was applied yesterday and spontaneous drainage occurred. Wound culture with MRSA Completed Bactrim every 12 hours which is sensitive on culture Multiple sclerosis with exacerbation: exacerbation resolved. Completed inpatient treatment Neurology evaluated patient and recommended outpatient management GI prophylaxis: Continue bowel regimen. DVT prophylaxis: SCDs, subcutaneous heparin Records were reviewed, no change in clinical status, no change in treatment plan Discharge Planning Discharge planning per case management, apparently waiting approval from correction facility Adrien Marquez Oct 01, 2016 08:13
[2016-10-01 20:00] VITALS: BP 128/78; PULSE 90; RESP 18; TEMP 97.7; O2SAT 98
[2016-10-02] MEDS: HEPARIN SODIUM - SQ 10,000 UNITS/ML VIAL SQ SCH ×3 (06:28→21:25)
[2016-10-02] MEDS: IBUPROFEN 600 MG TAB PO PRN ×2 (06:32→16:53)
[2016-10-02 08:00] VITALS: BP 173/68; PULSE 94; RESP 20; TEMP 96.9; O2SAT 96
[2016-10-02] MEDS: PANTOPRAZOLE SOD 40 MG DELAYED RELEASE TAB PO SCH (08:05)
[2016-10-02] MEDS: NYSTATIN 100,000 UNIT/GM CREAM 15 GM TOPICAL SCH ×2 (08:05→21:25)
[2016-10-02] MEDS: OLANZapine ODT 5 MG TAB PO SCH ×2 (08:05→21:17)
--- NOTE | 2016-10-02 08:55 | HHI.PR ---
Subjective Remarks Patient seen and examined today for follow-up on MS, psychosis. Patient is doing much better. Denies any new complaints. Asking if we get him a pair shoes. I discussed with the patient that he needs to continually to be active with physical therapy Objective Vitals Vital Signs Date Time Temp Pulse Resp B/P Pulse Ox O2 Delivery O2 Flow Rate FiO2 10/01/16 20:00 97.7 90 18 128/78 98 I/O 10/01/16 10/01/16 10/01/16 10/02/16 10/02/16 10/02/16 07:00 15:00 23:00 07:00 15:00 23:00 Intake Total 720 ml 600 ml 600 ml 480 ml Output Total 1850 ml 1500 ml 2050 ml 1650 ml Balance -1130 ml -900 ml -1450 ml -1170 ml Intake Oral 720 ml 600 ml 600 ml 480 ml Output Urine Total 1850 ml 1500 ml 2050 ml 1650 ml # Voids 3 # Bowel Movements 0 1 Objective Remarks GENERAL: Well-developed, well-nourished, in no acute distress. alert and orientated HEENT: Head is normocephalic without any lesions or masses noted. Facial features are symmetric. Eyes: Extraocular muscles are intact. Conjunctivae were clear. NECK: Supple without any masses. Trachea midline no deviation. No JVD, CARDIAC: Regular rhythm, regular rate. S1/S2 are heard. No murmurs gallops or rubs. LUNGS: Clear to auscultation bilaterally. No wheeze, rhonchi or rales. No use of accessory muscles on inspiration or expiration. ABDOMEN: Soft, nontender. Nondistended. Bowel sounds heard in all 4 quadrants. No organomegaly or masses. Negative rebound, negative guarding EXTREMITIES: 1+ pitting edema noted in the right lower extremity, pulses are equal bilaterally. No cyanosis or clubbing. NEUROLOGY: Mood and affect appear appropriate. Cranial nerves II through XII grossly intact. Moving all extremities, speech is clear Urinary Catheter: No Vascular Central Line Catheter: No A/P Assessment and Plan Acute psychosis: Significantly improved with increase of medication Continue Zyprexa 10 mg twice daily Psychiatry following the patient. Cognitive impairment: Improved. Speech therapy assessed patient and he has MOCA score of 12/30 indicating moderate to severe cognitive impairment. Speech therapy reassessed the patient still indicating patient MOCA score has not changed and they spoke with psychiatry who believes that his cognition issue is related to his psychiatric problems Tinea infection noted inguinal, waistline. Nystatin cream for 2 weeks Right lower extremity edema, improving Ultrasound performed which did not indicate any acute abnormality Abscess right elbow, treated Warm compress was applied yesterday and spontaneous drainage occurred. Wound culture with MRSA Completed Bactrim every 12 hours which is sensitive on culture Multiple sclerosis with exacerbation: exacerbation resolved. Completed inpatient treatment Neurology evaluated patient and recommended outpatient management GI prophylaxis: Continue bowel regimen. DVT prophylaxis: SCDs, subcutaneous heparin Records were reviewed, no change in clinical status, no change in treatment plan Discharge Planning Discharge planning per case management, apparently waiting approval from [facility] Adrien Marquez Oct 02, 2016 08:55
[2016-10-02 20:00] VITALS: BP 115/78; PULSE 97; RESP 18; TEMP 97.8; O2SAT 96
[2016-10-03] MEDS: HEPARIN SODIUM - SQ 10,000 UNITS/ML VIAL SQ SCH ×3 (06:00→22:00)
[2016-10-03] MEDS: PANTOPRAZOLE SOD 40 MG DELAYED RELEASE TAB PO SCH (07:30)
[2016-10-03] MEDS: NYSTATIN 100,000 UNIT/GM CREAM 15 GM TOPICAL SCH ×2 (07:30→21:00)
[2016-10-03] MEDS: OLANZapine ODT 5 MG TAB PO SCH ×2 (07:30→21:00)
[2016-10-03 08:00] VITALS: BP 125/81; PULSE 85; RESP 20; TEMP 97.8; O2SAT 95
--- NOTE | 2016-10-03 10:52 | HHI.PR ---
Subjective Remarks Patient seen and examined today. On MS and psychosis. Patient is doing well at this time. Awaiting case management for discharge planning. Awaiting approval from retirement for discharge Objective Vitals Vital Signs Date Time Temp Pulse Resp B/P Pulse Ox O2 Delivery O2 Flow Rate FiO2 10/03/16 08:00 97.8 85 20 125/81 95 10/02/16 20:00 97.8 97 18 115/78 96 I/O 10/02/16 10/02/16 10/02/16 10/03/16 10/03/16 10/03/16 07:00 15:00 23:00 07:00 15:00 23:00 Intake Total 480 ml 975 ml 480 ml Output Total 1650 ml 1400 ml 900 ml Balance -1170 ml -425 ml -420 ml Intake Oral 480 ml 975 ml 480 ml Output Urine Total 1650 ml 1400 ml 900 ml # Voids 1 # Bowel Movements 1 0 Objective Remarks GENERAL: Well-developed, well-nourished, in no acute distress. alert and orientated HEENT: Head is normocephalic without any lesions or masses noted. Facial features are symmetric. Eyes: Extraocular muscles are intact. Conjunctivae were clear. NECK: Supple without any masses. Trachea midline no deviation. No JVD, CARDIAC: Regular rhythm, regular rate. S1/S2 are heard. No murmurs gallops or rubs. LUNGS: Clear to auscultation bilaterally. No wheeze, rhonchi or rales. No use of accessory muscles on inspiration or expiration. ABDOMEN: Soft, nontender. Nondistended. Bowel sounds heard in all 4 quadrants. No organomegaly or masses. Negative rebound, negative guarding EXTREMITIES: 1+ pitting edema noted in the right lower extremity, pulses are equal bilaterally. No cyanosis or clubbing. NEUROLOGY: Mood and affect appear appropriate. Cranial nerves II through XII grossly intact. Moving all extremities, speech is clear Urinary Catheter: No Vascular Central Line Catheter: No A/P Assessment and Plan Acute psychosis: Significantly improved with increase of medication Continue Zyprexa 10 mg twice daily Psychiatry following the patient. Cognitive impairment: Improved. Speech therapy assessed patient and he has MOCA score of 12/30 indicating moderate to severe cognitive impairment. Speech therapy reassessed the patient still indicating patient MOCA score has not changed and they spoke with psychiatry who believes that his cognition issue is related to his psychiatric problems Hypertension Start Norvasc 5 mg daily Tinea infection noted inguinal, waistline. Nystatin cream for 2 weeks Right lower extremity edema, improving Ultrasound performed which did not indicate any acute abnormality Abscess right elbow, treated Warm compress was applied yesterday and spontaneous drainage occurred. Wound culture with MRSA Completed Bactrim every 12 hours which is sensitive on culture Multiple sclerosis with exacerbation: exacerbation resolved. Completed inpatient treatment Neurology evaluated patient and recommended outpatient management GI prophylaxis: Continue bowel regimen. DVT prophylaxis: SCDs, subcutaneous heparin Records were reviewed, no change in clinical status, no change in treatment plan Discharge Planning Discharge planning per case management, apparently waiting approval from intermediate facility Adrien Marquez Oct 03, 2016 10:52
[2016-10-03] MEDS: amLODIPine BESYLATE 5 MG TAB PO SCH (13:09)
[2016-10-03 20:00] VITALS: BP 118/74; PULSE 88; RESP 18; TEMP 97.6; O2SAT 96
[2016-10-04] MEDS: HEPARIN SODIUM - SQ 10,000 UNITS/ML VIAL SQ SCH ×3 (06:00→21:17)
[2016-10-04 06:04] LABS: AUTOMATED NEUTROPHIL # 3.5 TH/MM3 (1.8-7.7); BASOPHIL % 0.6 % (0.0-2.0); EOSINOPHIL # 0.6 TH/MM3 (0-0.4); EOSINOPHIL % 6.8 % (0.0-4.0); HEMATOCRIT 39.9 % (39.0-51.0); HEMO FLAGS DIFF FINAL; LYMPH % 32.2 % (9.0-44.0); LYMPHOCYTE # 2.6 TH/MM3 (1.0-4.8); MEAN CELL VOLUME 94.5 FL (80.0-100.0); MEAN CORPUSCULAR HEMOGLOBIN 31.9 PG (27.0-34.0); MEAN CORPUSCULAR HGB CONC 33.7 % (32.0-36.0); MONO % 17.1 % (0.0-8.0); NEUT % 43.3 % (16.0-70.0); PLATELET COUNT 253 TH/MM3 (150-450); RED BLOOD COUNT 4.23 MIL/MM3 (4.50-5.90); RED CELL DISTRIBUTION WIDTH 13.8 % (11.6-17.2); WHITE BLOOD COUNT 8.1 TH/MM3 (4.0-11.0)
[2016-10-04 06:20] LABS: CHLORIDE 104 MEQ/L (98-107); POTASSIUM 4.6 MEQ/L (3.5-5.1); SODIUM (NA) 142 MEQ/L (136-145)
[2016-10-04 06:25] LABS: ANION GAP 8 MEQ/L (5-15); BICARBONATE 30.4 MEQ/L (21.0-32.0); BLOOD UREA NITROGEN 26 MG/DL (7-18); MAGNESIUM 2.2 MG/DL (1.5-2.5)
[2016-10-04 06:28] LABS: ALT (GPT) 45 U/L (12-78); AST (GOT) 30 U/L (15-37); GLOMERULAR FILTRATION RATE 82 ML/MIN (>89)
[2016-10-04 06:29] LABS: TOTAL BILIRUBIN ADULT 0.3 MG/DL (0.2-1.0)
[2016-10-04 06:31] LABS: ALKALINE PHOSPHATASE 77 U/L (45-117)
[2016-10-04] MEDS: PANTOPRAZOLE SOD 40 MG DELAYED RELEASE TAB PO SCH (07:22)
[2016-10-04] MEDS: OLANZapine ODT 5 MG TAB PO SCH ×2 (07:22→21:17)
[2016-10-04] MEDS: amLODIPine BESYLATE 5 MG TAB PO SCH (07:22)
[2016-10-04] MEDS: NYSTATIN 100,000 UNIT/GM CREAM 15 GM TOPICAL SCH ×2 (07:22→21:21)
[2016-10-04 08:00] VITALS: BP 117/85; PULSE 94; RESP 20; TEMP 97.1; O2SAT 99
--- NOTE | 2016-10-04 09:19 | HHI.PR ---
Subjective Remarks Patient seen and examined today for follow-up on MS, psychosis. Patient is doing much better. She is try to participate with physical therapy, however is very difficult without him have any shoes. Awaiting disease case manager rn discharge planning. 3008, PASSR have all been completed Objective Vitals Vital Signs Date Time Temp Pulse Resp B/P Pulse Ox O2 Delivery O2 Flow Rate FiO2 10/04/16 08:00 97.1 94 20 117/85 99 10/03/16 20:00 97.6 88 18 118/74 96 I/O 10/03/16 10/03/16 10/03/16 10/04/16 10/04/16 10/04/16 07:00 15:00 23:00 07:00 15:00 23:00 Intake Total 480 ml 1920 ml Output Total 900 ml 1800 ml 800 ml Balance -420 ml 120 ml -800 ml Intake Oral 480 ml 1920 ml Output Urine Total 900 ml 1800 ml 800 ml # Bowel Movements 0 1 0 Result Diagram: 10/04/16 0505 10/04/16 0505 Objective Remarks GENERAL: Well-developed, well-nourished, in no acute distress. alert and orientated HEENT: Head is normocephalic without any lesions or masses noted. Facial features are symmetric. Eyes: Extraocular muscles are intact. Conjunctivae were clear. NECK: Supple without any masses. Trachea midline no deviation. No JVD, CARDIAC: Regular rhythm, regular rate. S1/S2 are heard. No murmurs gallops or rubs. LUNGS: Clear to auscultation bilaterally. No wheeze, rhonchi or rales. No use of accessory muscles on inspiration or expiration. ABDOMEN: Soft, nontender. Nondistended. Bowel sounds heard in all 4 quadrants. No organomegaly or masses. Negative rebound, negative guarding EXTREMITIES: 1+ pitting edema noted in the right lower extremity, pulses are equal bilaterally. No cyanosis or clubbing. NEUROLOGY: Mood and affect appear appropriate. Cranial nerves II through XII grossly intact. Moving all extremities, speech is clear Urinary Catheter: No Vascular Central Line Catheter: No A/P Assessment and Plan Acute psychosis: Significantly improved with increase of medication Continue Zyprexa 10 mg twice daily Psychiatry following the patient. Cognitive impairment: Improved. Speech therapy assessed patient and he has MOCA score of 12/30 indicating moderate to severe cognitive impairment. Speech therapy reassessed the patient still indicating patient MOCA score has not changed and they spoke with psychiatry who believes that his cognition issue is related to his psychiatric problems Hypertension Start HCTZ 25 mg daily Renal insufficiency, mild Encourage by mouth intake Monitor weekly Tinea infection noted inguinal, waistline. Nystatin cream for 2 weeks Right lower extremity edema, improving Ultrasound performed which did not indicate any acute abnormality Abscess right elbow, treated Warm compress was applied yesterday and spontaneous drainage occurred. Wound culture with MRSA Completed Bactrim every 12 hours which is sensitive on culture Multiple sclerosis with exacerbation: exacerbation resolved. Completed inpatient treatment Neurology evaluated patient and recommended outpatient management GI prophylaxis: Continue bowel regimen. DVT prophylaxis: SCDs, subcutaneous heparin Discharge Planning Discharge planning per case management, apparently waiting approval from long term facility Adrien Marquez Oct 04, 2016 09:19
[2016-10-04] MEDS: HYDROCHLOROTHIAZIDE 25 MG TAB PO SCH (10:23)
[2016-10-04] MEDS: IBUPROFEN 600 MG TAB PO PRN (18:58)
[2016-10-04 20:00] VITALS: BP 143/65; PULSE 109; RESP 21; TEMP 98.4; O2SAT 96
[2016-10-05] MEDS: HEPARIN SODIUM - SQ 10,000 UNITS/ML VIAL SQ SCH ×3 (06:14→20:55)
[2016-10-05 08:00] VITALS: BP 156/95; PULSE 87; RESP 18; TEMP 98; O2SAT 99
[2016-10-05] MEDS: OLANZapine ODT 5 MG TAB PO SCH ×2 (09:35→20:55)
[2016-10-05] MEDS: PANTOPRAZOLE SOD 40 MG DELAYED RELEASE TAB PO SCH (09:35)
[2016-10-05] MEDS: HYDROCHLOROTHIAZIDE 25 MG TAB PO SCH (09:35)
[2016-10-05] MEDS: NYSTATIN 100,000 UNIT/GM CREAM 15 GM TOPICAL SCH ×2 (09:36→20:55)
[2016-10-05] MEDS: ACETAMINOPHEN 325 MG TAB PO PRN (12:39)
--- NOTE | 2016-10-05 13:38 | HHI.PR ---
Subjective Remarks Follow-up for MS exacerbation, psychosis. The patient states he has trouble breathing but admits to feeling anxious about everything. He denies any fevers or cough. He still complains of the swelling in his right leg. Objective Vitals Vital Signs Date Time Temp Pulse Resp B/P Pulse Ox O2 Delivery O2 Flow Rate FiO2 10/05/16 08:00 98.0 87 18 156/95 99 10/04/16 20:19 18 10/04/16 20:00 98.4 109 21 143/65 96 I/O 10/04/16 10/04/16 10/04/16 10/05/16 10/05/16 10/05/16 07:00 15:00 23:00 07:00 15:00 23:00 Intake Total 1230 ml 240 ml 360 ml Output Total 800 ml 1100 ml 750 ml 1500 ml Balance -800 ml 130 ml -510 ml -1140 ml Intake Oral 1230 ml 240 ml 360 ml Output Urine Total 800 ml 1100 ml 750 ml 1500 ml # Voids 2 # Bowel Movements 0 0 Result Diagram: 10/04/16 0505 10/04/16 0505 Objective Remarks GENERAL: Well-nourished, well-developed patient in no apparent distress sitting on side of bed. CARDIOVASCULAR: Regular rate and rhythm. RESPIRATORY: No accessory muscle use. Clear to auscultation. Breath sounds equal bilaterally. MUSCULOSKELETAL: Ankle and pedal edema bilaterally. NEUROLOGICAL: Awake and alert. Normal speech. PSYCHIATRIC: Normal affect. Urinary Catheter: No Vascular Central Line Catheter: No A/P Problem List: (1) Abscess of right arm ICD Code: L02.413 Status: Resolved (2) Exacerbation of multiple sclerosis ICD Code: G35 Status: Acute (3) Brief psychotic disorder ICD Code: F23 Status: Acute (4) Cognitive impairment ICD Code: R41.89 Status: Acute (5) HTN (hypertension) ICD Code: I10 Status: Acute (6) Prerenal azotemia ICD Code: R79.89 Status: Acute Assessment and Plan 41-year-old male admitted with multiple sclerosis exacerbation and acute psychosis. Abscess: Resolved. -Warm compress applied and spontaneous drainage occurred. Wound culture with MRSA. -S/p Bactrim DS q12 hours x 5 days Ankle swelling: Worse on the right normally, but today appears more equal or slightly larger on left. Doppler US right leg 09/14 negative for DVT. Likely attributed to dependent positioning. Patient advised to elevate legs. Multiple sclerosis with exacerbation: exacerbation resolved. -Completed steroids -Neurology evaluated patient, recommendations appreciated -Continue OT and PT -[place] discontinued on 09/14. -09/24: Patient again asks about starting back his MS meds, but neurology indicates on 09/03 that patient will need outpatient neurological care of which I informed patient. -09/27: Patient again complains of pain in his back and legs. Will start ibuprofen 600 mg prn pain 4-10. Will avoid resuming narcotics. If pain continues will need to consider alternative agent for neurogenic pain. May also need to consider medication for spasticity. -PT note mentions patient desiring to wear sneakers, but did not state if this would be ok. Will need to discuss with PT. If ok, will try to obtain sneakers for patient. Acute psychosis: Improved -09/13: Per nurse patient slamming drawers, talking to an imaginary person. -09/14: Psychiatry reevaluated patient and increased Zyprexa to 10 mg bid Cognitive impairment: Stable. Patient is still disoriented. -Speech therapy assessed patient and he has MOCA score of 12/30 indicating moderate to severe cognitive impairment, states likely related to psych issues. HTN: Patient started on HCTZ 25 mg daily on 10/04/16. BP still elevated this morning but will monitor for improvement. Pre-renal azotemia, mild. BUN 26 on 10/04. Encourage by mouth intake Recheck am BMP Tinea infection noted inguinal, waistline. Nystatin cream for 2 weeks Hyperglycemia: Resolved, likely steroid related GI prophylaxis: Continue bowel regimen. DVT prophylaxis: SCDs, heparin Discharge Planning 09/21/16: Per CM patient received PASSR and patient is appropriate for SNF 10/05/16: I was informed by Gary Sarkar, outpatient case manager that patient can be discharged to SNF tomorrow. Yuli Marte Oct 05, 2016 13:38
[2016-10-05 20:00] VITALS: BP 122/81; PULSE 86; RESP 18; TEMP 97.2; O2SAT 96
[2016-10-06] MEDS: HEPARIN SODIUM - SQ 10,000 UNITS/ML VIAL SQ SCH (05:58)
[2016-10-06 06:13] LABS: POTASSIUM 4.5 MEQ/L (3.5-5.1)
[2016-10-06 08:00] VITALS: BP 140/95; PULSE 88; RESP 18; TEMP 96.6; O2SAT 95
[2016-10-06] MEDS ORDERED: NYST15T TOPICAL (08:39)
[2016-10-06] MEDS ORDERED: PANT40TA3 PO (08:39)
[2016-10-06] MEDS ORDERED: HYDR25TA5 PO (08:39)
[2016-10-06] MEDS ORDERED: HEPA10003 SQ (08:39)
[2016-10-06] MEDS ORDERED: IBUP-232 PO (08:39)
[2016-10-06] MEDS ORDERED: OLANZ5 PO (08:39)
--- NOTE | 2016-10-06 08:42 | HHI.DCPOC ---
Discharge Care Plan Diagnosis: (1) Exacerbation of multiple sclerosis (2) Psychosis (3) Cognitive impairment (4) Abscess of right arm (5) Bilateral lower extremity edema (6) HTN (hypertension) (7) Prerenal azotemia Goals to Promote Your Health * To prevent worsening of your condition and complications * To maintain your health at the optimal level Directions to Meet Your Goals Take your medications as prescribed Follow your dietary instruction Follow activity as directed Keep your appointments as scheduled Take your immunizations and boosters as scheduled If your symptoms worsen call your PCP, if no PCP go to Urgent Care Center or Emergency Room Smoking is Dangerous to Your Health. Avoid second hand smoke Call the 24-hour hour crisis hotline for domestic abuse at Yuli Marte Oct 06, 2016 08:42
[2016-10-06] MEDS ORDERED: WHEEMIS3 (08:43)
--- NOTE | 2016-10-06 09:03 | HHI.DS ---
Discharge Summary Admission Date Sep 01, 2016 at 04:38 Discharge Date: Oct 06, 2016 Admitting Diagnosis Inability to ambulate, medication non-compliance (1) Exacerbation of multiple sclerosis ICD Code: G35 Diagnosis: Principal (2) Psychosis ICD Code: F29 Diagnosis: Principal (3) Cognitive impairment ICD Code: R41.89 Diagnosis: Principal (4) Bilateral lower extremity edema ICD Code: R60.0 Diagnosis: Principal (5) Abscess of right arm ICD Code: L02.413 Diagnosis: Principal (6) HTN (hypertension) ICD Code: I10 Diagnosis: Principal (7) Prerenal azotemia ICD Code: R79.89 Diagnosis: Principal Procedures None Brief History - From Admission Mr. Nichols is a 41-year-old male. He has multiple sclerosis at baseline. At baseline he was on Copaxone as a management for his MS. He says he has a prescription for this but he is now homeless and does not have a refrigerator to keep his medications and so he has not been able take this medication for 1- 2 months. In this phase and especially recently he has had a progressive onset of weakness. At this point he cannot ambulate. No fevers reported. No diarrhea. No nausea or vomiting. No headaches. It was reported to me that he was expressing suicidal ideations by the nurse. For me remains silent when I ask him this question. He is not very cooperative during the interview. I am unaware of his baseline mental status and personality. Nurses also reported he was confused, which may be related to MS flare. CBC/BMP: 10/04/16 0505 10/06/16 0555 Significant Findings Laboratory Tests Test 10/04/16 10/06/16 05:05 05:55 Red Blood Count 4.23 MIL/MM3 (4.50-5.90) Monocytes (%) (Auto) 17.1 % (0.0-8.0) Eosinophils (%) (Auto) 6.8 % (0.0-4.0) Monocytes # (Auto) 1.4 TH/MM3 (0-0.9) Eosinophils # (Auto) 0.6 TH/MM3 (0-0.4) Blood Urea Nitrogen 26 MG/DL (7-18) 21 MG/DL (7-18) Estimat Glomerular Filtration 82 ML/MIN (>89) 73 ML/MIN (>89) Rate Imaging Last Impressions Lower Extremity Ultrasound 09/14/16 0000 Signed Impressions: Service Date/Time: Wednesday, September 14, 2016 15:31 - CONCLUSION: No DVT in the right leg. Serjio Bob MD Thoracic Spine MRI 09/03/16 0000 Signed Impressions: Service Date/Time: Saturday, September 03, 2016 13:51 - CONCLUSION: Abnormal signal within the thoracic cord. Given the history of multiple sclerosis this would be the most likely diagnosis. This is most significant towards the conus. There is no evidence for expansion of the cord to suggest a mass lesion. Eduardo Zamudio MD FACR Cervical Spine MRI 09/03/16 0000 Signed Impressions: Service Date/Time: Saturday, September 03, 2016 13:51 - CONCLUSION: Abnormal signal in the cervical cord consistent with a demyelinating process. Eduardo Zamudio MD FACR Brain MRI 09/02/16 0000 Signed Impressions: Service Date/Time: August 15:52 - CONCLUSION: Extensive abnormal T2 signal throughout the white matter. In the appropriate clinical setting this would suggest a demyelinative process. Tin Zamudio MD Chest X-Ray 09/01/16 0324 Signed Impressions: Service Date/Time: Thursday, September 01, 2016 03:36 - CONCLUSION: Questionable early airspace disease right lower lobe could be a small area of pneumonia.. Xavi Mejia MD PE at Discharge GENERAL: Well-nourished, well-developed patient in no apparent distress sitting on side of bed. CARDIOVASCULAR: Regular rate and rhythm. RESPIRATORY: No accessory muscle use. Clear to auscultation. Breath sounds equal bilaterally. GASTROINTESTINAL: Abdomen soft, nontender, nondistended. MUSCULOSKELETAL: 2+ DP pulses bilaterally. Ankle and pedal edema bilaterally. NEUROLOGICAL: Awake and alert. Patient knows he is at the hospital. He again thinks he is in [place]. He states the president is [place]. He does not know the month nor the year. 5/5 cytopathologist bilaterally. 4/5 strength in bilateral quadriceps and lower legs. Normal speech. PSYCHIATRIC: Normal affect. Pt update on day of discharge Patient has no acute complaints. Hospital Course Patient was admitted for MS exacerbation on 09/01/16. Patient reported generalized weakness also with chronic lower extremity edema. He was evaluated by neurology. MRIs of the brain, cervical, and thoracic spine were obtained consistent with MS. He was treated with IV steroids. Neurologist stated that the patient would need manager social services and outpatient neurological care. Apparently he was on outpatient management but is homeless and was unable to continue it. OT and PT have been following the patient. He requires significant assistance and is a fall risk. The patient complained multiple times about the swelling in his legs likely dependent edema related to his MS, but was noted to be worse on the right at times. Doppler ultrasound negative for DVT. Patient initially was treated with pain medication which was discontinued. He was transitioned to ibuprofen for pain control to help with inflammation. Patient developed an abscess to his right elbow which spontaneously drained and resolved. It was positive for MRSA but patient completed treatment with Bactrim DS. Patient was started on HCTZ for hypertension which has improved. Recent prerenal azotemia has improved. Patient currently on nystatin for a tinea infection at the inguinal region. Apparently when he was admitted he expressed suicidal ideations to the nurse and psychiatry was consulted. Patient was diagnosed with brief psychotic disorder and started on Zyprexa which required titration upward to manage his psychosis throughout his hospitalization. Patient has low education level. Speech therapy indicated patient has moderate to severe cognitive impairment related to his psychiatric issues. He continues to be disoriented although is more cooperative. I was informed by the manager case that the patient was accepted to a SNF in [place]. Patient is stable for discharge. Pt Condition on Discharge: Stable Discharge Disposition: Discharge to SNF Discharge Time: > 30 minutes Discharge Instructions DIET: Follow Instructions for: As Tolerated, No Restrictions Activities you can perform: See Additionl Instruction Other Activity Instructions: Activity per PT; requires assistance Follow up Referrals: Neurology with Nae Ashby MD Psychiatry Adult SNF/[facility]/ New Medications: Wheelchair (Wheelchair) 1 Mis Mis 1 EA .ROUTE DIRECTED removable arms and legs #1 Ref 0 EA Heparin Sodium (Porcine) (Heparin Sodium) 10,000 Unit/Ml Inj 5000 UNITS SQ Q8H Blood Clot Prevention Days 30 INJECTION Hydrochlorothiazide (Hydrochlorothiazide) 25 Mg Tab 25 MG PO DAILY Blood Pressure Management #30 TAB Ibuprofen (Ibuprofen) 600 Mg Tab 600 MG PO Q8H PRN PAIN 4-10 #20 TAB Nystatin Topical (Nystatin Topical) 100,000 unit/gm Cream 1 APPLIC TOPICAL Q12HR apply to waistline, inguinal area Rash #1 TUBE Olanzapine Odt (Zyprexa Zydis) 5 Mg Tab 10 MG PO BID Psychosis #120 TAB Pantoprazole (Pantoprazole) 40 Mg Tab 40 MG PO DAILY GI protection #30 TAB Yuli Marte Oct 06, 2016 09:03
[2016-10-06] MEDS: HYDROCHLOROTHIAZIDE 25 MG TAB PO SCH (11:08)
[2016-10-06] MEDS: OLANZapine ODT 5 MG TAB PO SCH (11:08)
[2016-10-06] MEDS: NYSTATIN 100,000 UNIT/GM CREAM 15 GM TOPICAL SCH (11:09)
[2016-10-06] MEDS: PANTOPRAZOLE SOD 40 MG DELAYED RELEASE TAB PO SCH (11:09)
== END 2016-10-06 13:00 | disposition home or self-care (01) ==
LOC: NEPE 01:11 → NEDA 04:38 → INTOOBSV 04:38 → OBSVTOIN 04:38 → NEPHCDU 06:33 → N06A 17:54 → PH5A 09-06 21:54
PROVIDERS: ADMIT Family Medicine; ATTEND Family Medicine
DX: R53.1 Weakness (principal); G35 Multiple sclerosis; R60.0 Localized edema; G89.29 Other chronic pain; F12.90 Cannabis use, unspecified, uncomplicated; R05 Cough; R53.83 Other fatigue; I45.9 Conduction disorder, unspecified; R91.8 Other nonspecific abnormal finding of lung field; R26.2 Difficulty in walking, not elsewhere classified; R41.0 Disorientation, unspecified; R26.81 Unsteadiness on feet; R47.1 Dysarthria and anarthria; B95.62 Methicillin resistant Staphylococcus aureus infection as the cause of diseases classified elsewhere; F23 Brief psychotic disorder; L02.413 Cutaneous abscess of right upper limb; I10 Essential (primary) hypertension; R79.1 Abnormal coagulation profile; M79.621 Pain in right upper arm; D64.9 Anemia, unspecified; R06.9 Unspecified abnormalities of breathing; R79.89 Other specified abnormal findings of blood chemistry; Z72.0 Tobacco use; Z59.0 Homelessness; Z99.3 Dependence on wheelchair; Z16.11 Resistance to penicillins; Z91.14 Patient's other noncompliance with medication regimen; Z16.10 Resistance to unspecified beta lactam antibiotics; Z23 Encounter for immunization
CPT/HCPCS: 70553; 71010; 72156; 72157; 80048; 80053; 82550; 82552; 82948; 83735; 83880; 84443; 84484; 85025; 85652; 86403; 87070; 87147; 87186; 87205; 87641; 90471; 90732; 93005; 93971; 96125; 97110; 97116; 97162; 97166; 97530; 97535; 99285; A9579; G0378; G8987; G8988; J1644; J1815; J2930; G0009

== ENCOUNTER 2016-10-06 17:28 | Inpatient (IN) | payer OTHER ==
[~2016-10-06] VITALS: Ht 190.5 cm; Wt 137.7 kg
[~2016-10-06 17:28] MED LIST changes: -BACT800T5 PO; +HEPA10003 SQ; +HYDR25TA5 PO; +IBUP-232 PO; +NYST15T TOPICAL; +OLANZ5 PO; +PANT40TA3 PO; +WHEEMIS3
[2016-10-06 17:35] VITALS: BP 124/80; PULSE 88; RESP 18; TEMP 98.2; O2SAT 95
--- NOTE | 2016-10-06 18:27 | PD ---
HPI Chief Complaint: General Weakness Time Seen by Provider: 18:22 Travel History International Travel<30 days: No Contact w/Intl Traveler<30days: No Traveled to known affect area: No History of Present Illness HPI This 41-year-old male has a history of multiple sclerosis. He was admitted for an exacerbation of his multiple sclerosis and has been in the hospital for about a month and a half. Arrangements were made for him to be transferred to a facility in [place] and today he was discharged from [facility] and went to [place]. He does not know why but for some reason he was refused there and he has come back here. He has MS. He has right-sided weakness. He walks with a walker and is in a wheelchair most of the time. He says that otherwise he feels okay. He wishes to go place and has some rehabilitation facilities area [facility] Past Medical History Blood Disorders: No Anxiety: Yes Depression: Yes Cancer: No Cardiovascular Problems: No Diminished Hearing: No Endocrine: No Genitourinary: No Immune Disorder: No Musculoskeletal: Yes (back pain) Neurologic: Yes (multiple sclerosis) Psychiatric: Yes Reproductive: No Respiratory: No Immunizations Current: Yes Past Surgical History Other Surgery: No Social History Alcohol Use: No Tobacco Use: Yes Substance Use: Yes ("weed") Allergies-Medications (Allergen,Severity, Reaction): Coded Allergies: *MDRO Multi-Drug Resistant Organism (Verified Adverse Reaction, Unknown, ) MRSA (leg)-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 & 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/16 MRSA (arm)-09/12/16 Reported Meds & Prescriptions Reported Meds & Active Scripts Active Wheelchair (Device) 1 Mis Mis 1 Ea .ROUTE DIRECTED removable arms and legs Ibuprofen 600 Mg Tab 600 Mg PO Q8H PRN Heparin Sodium (Heparin Sodium (Porcine)) 10,000 Unit/Ml Inj 5,000 Units SQ Q8H 30 Days Pantoprazole (Pantoprazole Sodium) 40 Mg Tab 40 Mg PO DAILY Zyprexa Zydis (Olanzapine) 5 Mg Tab 10 Mg PO BID Nystatin Topical (Nystatin) 100,000 unit/gm Cream 1 Applic TOPICAL Q12HR apply to waistline, inguinal area Hydrochlorothiazide 25 Mg Tab 25 Mg PO DAILY Review of Systems General / Constitutional: No: Fever, Chills Eyes: Positive: Blurred Vision, No: Diploplia HENT: No: Lightheadedness Respiratory: No: Cough, Shortness of Breath Gastrointestinal: No: Nausea Genitourinary: No: Urgency Musculoskeletal: No: Myalgias Neurologic: Positive: Weakness Endocrine: No: Cold Intolerance Hematologic/Lymphatic: No: Easy Bruising Physical Exam Narrative GENERAL: Well-developed male SKIN: Focused skin assessment warm/dry. HEAD: Atraumatic. Normocephalic. EYES: Pupils equal and round. No scleral icterus. No injection or drainage. ENT: No nasal bleeding or discharge. Mucous membranes pink and moist. NECK: Trachea midline. No JVD. CARDIOVASCULAR: Regular rate and rhythm. No murmur appreciated. RESPIRATORY: No accessory muscle use. Clear to auscultation. Breath sounds equal bilaterally. GASTROINTESTINAL: Abdomen soft, non-tender, nondistended. Hepatic and splenic margins not palpable. MUSCULOSKELETAL: No obvious deformities. No clubbing. No cyanosis. No edema. NEUROLOGICAL: Awake and alert. No obvious cranial nerve deficits. He has right- sided weakness PSYCHIATRIC: Appropriate mood and affect; insight limited Data Data Last Documented VS Vital Signs Date Time Temp Pulse Resp B/P Pulse Ox O2 Delivery O2 Flow Rate FiO2 10/06/16 17:35 98.2 88 18 124/80 95 Orders Admit Order (Ed Use Only) (10/06/16 18:23) Heparin Inj (Heparin Inj) (10/06/16 18:30) Hydrochlorothiazide (Hydrodiuril) (10/07/16 09:00) Ibuprofen (Motrin) (10/06/16 18:30) [facility] Medical Decision Making Medical Screen Exam Complete: Yes Emergency Medical Condition: Yes Medical Record Reviewed: Yes Differential Diagnosis Differential includes MS, homelessness, Narrative Course She'll be admitted to the hospital for discharge planning Diagnosis Primary Impression: Multiple sclerosis Admitting Information Admitting Physician Requests: Admit Owen Das MD Oct 06, 2016 18:27
[2016-10-06] MEDS ORDERED: BISACODYL 10 MG SUPP RECTAL PRN (18:30)
[2016-10-06] MEDS ORDERED: SODIUM CHLORIDE 0.9% FLUSH 10 ML FLUSH IV FLUSH PRN (18:30)
[2016-10-06] MEDS ORDERED: MAGNESIUM HYDROXIDE SUSP 30 ML CUP PO PRN (18:30)
[2016-10-06] MEDS ORDERED: LACTULOSE SYRUP 20 GM/30 ML CUP PO PRN (18:30)
[2016-10-06] MEDS ORDERED: SENNOSIDES 8.6 MG TAB PO PRN (18:30)
[2016-10-06] MEDS ORDERED: NALOXONE HCL 0.4 MG/ML AMP IV PRN (18:30)
[2016-10-06 20:00] VITALS: BP 161/91; PULSE 98; RESP 18; TEMP 97.5; O2SAT 96
[2016-10-06] MEDS: NYSTATIN 100,000 UNIT/GM CREAM 15 GM TOPICAL SCH (21:00)
[2016-10-06] MEDS: SODIUM CHLORIDE 0.9% FLUSH 10 ML FLUSH IV FLUSH SCH (21:00)
[2016-10-06] MEDS: OLANZapine ODT 5 MG TAB PO SCH (23:25)
[2016-10-06] MEDS: HEPARIN SODIUM - SQ 10,000 UNITS/ML VIAL SQ SCH (23:26)
[2016-10-06] MEDS: DOCUSATE SODIUM 50 MG/SENNA 8.6 MG TAB PO SCH (23:26)
[2016-10-07] MEDS: HEPARIN SODIUM - SQ 10,000 UNITS/ML VIAL SQ SCH ×3 (06:52→20:13)
[2016-10-07 08:00] VITALS: BP 134/80; PULSE 80; RESP 18; TEMP 98.2; O2SAT 98
[2016-10-07] MEDS: SODIUM CHLORIDE 0.9% FLUSH 10 ML FLUSH IV FLUSH SCH ×2 (09:00→20:16)
[2016-10-07] MEDS: DOCUSATE SODIUM 50 MG/SENNA 8.6 MG TAB PO SCH ×2 (09:50→20:13)
[2016-10-07] MEDS: OLANZapine ODT 5 MG TAB PO SCH ×2 (09:51→20:13)
[2016-10-07] MEDS: PANTOPRAZOLE SOD 40 MG DELAYED RELEASE TAB PO SCH (09:51)
[2016-10-07] MEDS: HYDROCHLOROTHIAZIDE 25 MG TAB PO SCH (09:52)
[2016-10-07] MEDS: NYSTATIN 100,000 UNIT/GM CREAM 15 GM TOPICAL SCH ×2 (09:52→20:16)
--- NOTE | 2016-10-07 11:59 | HHI.HP ---
HPI Service [facility] Hospitalists Primary Care Physician No Primary Care Physician Admission Diagnosis MULTIPLE SCLEROSIS Diagnoses: (1) Hospital admission due to social situation Diagnosis: Principal Chief Complaint: "Facility did not have paperwork" Travel History International Travel<30 Days: No Contact w/Intl Traveler <30 Da: No Traveled to Known Affected Are: No History of Present Illness Written by Yuli Marte PA-C acting as scribe for Dr. Arriola on 10/07/16 at 1155. 41-year-old -[place] male was readmitted to the hospital yesterday after being discharged. He was initially admitted to [facility] on 09/01/16 with weakness and was found to have MS exacerbation and was evaluated and treated by neurology. Also found to have psychosis and cognitive impairment. He had been discharged to the [facility] yesterday, but apparently was not accepted. According to the case management assistant's note from today, the patient had confirmation of acceptance to the facility. Apparently the facility refused to accept the patient regarding an unknown issue with the insurance. The patient complains about not having the proper diet. He also complains about not receiving sufficient physical therapy stating he has limited ambulation. Review of Systems No symptoms reported Past Family Social History Past Medical History Multiple sclerosis Chronic lower extremity edema HTN psychosis Past Surgical History None Reported Medications Ibuprofen 600 Mg Tab 600 Mg PO Q8H PRN Heparin Sodium (Heparin Sodium (Porcine)) 10,000 Unit/Ml Inj 5,000 Units SQ Q8H 30 Days Pantoprazole (Pantoprazole Sodium) 40 Mg Tab 40 Mg PO DAILY Zyprexa Zydis (Olanzapine) 5 Mg Tab 10 Mg PO BID Nystatin Topical (Nystatin) 100,000 unit/gm Cream 1 Applic TOPICAL Q12HR apply to waistline, inguinal area Hydrochlorothiazide 25 Mg Tab 25 Mg PO DAILY Allergies: Coded Allergies: *MDRO Multi-Drug Resistant Organism (Verified Adverse Reaction, Unknown, ) MRSA (leg)-07/05/16 & 07/20/16 MRSA (arm)-09/12/16 Family History Not obtained Social History Per EMR, tobacco use and marijuana. Physical Exam Vital Signs Vital Signs Date Time Temp Pulse Resp B/P Pulse Ox O2 Delivery O2 Flow Rate FiO2 10/07/16 08:00 98.2 80 18 134/80 98 10/06/16 20:00 97.5 98 18 161/91 96 10/06/16 17:35 98.2 88 18 124/80 95 Physical Exam GENERAL: This is a well-nourished, well-developed patient, in no apparent distress. SKIN: No rashes, ecchymoses or lesions. Warm and dry. HEAD: Atraumatic. Normocephalic. EYES: No scleral icterus. No injection or drainage. NECK: Trachea midline. CARDIOVASCULAR: Regular rate and rhythm without murmurs, gallops, or rubs. RESPIRATORY: Clear to auscultation. Breath sounds equal bilaterally. No wheezes , rales, or rhonchi. NEUROLOGICAL: Awake and alert. Normal speech. Sitting in wheelchair. Assessment and Plan Assessment and Plan 41 year old male with: Hospital admission due to social situation: Patient was just discharged from the hospital yesterday to a facility in [place], but apparently there was a problem with acceptance and the patient returned here. 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 Could be related to MS or psychosis HTN: BP elevated last night but improved this morning -Continue HCTZ DVT prevention: heparin sq. This note was transcribed by henri [Yuli Marte]. I, Dr. Jerardo Arriola personally performed the history, physical exam, and medical decision making; and confirmed the accuracy of the information in the transcribed note. Authenticated by Dr. Jerardo Arriola on 10/07/16 at 1159. Yuli Marte Oct 07, 2016 11:59 Jerardo Arriola MD Oct 07, 2016 16:33
[2016-10-07 20:00] VITALS: BP 148/77; PULSE 94; RESP 18; TEMP 98.4; O2SAT 95
[2016-10-08] MEDS: HEPARIN SODIUM - SQ 10,000 UNITS/ML VIAL SQ SCH ×3 (03:50→22:06)
[2016-10-08 08:00] VITALS: BP 122/74; PULSE 74; RESP 18; TEMP 97.6; O2SAT 96
[2016-10-08] MEDS: SODIUM CHLORIDE 0.9% FLUSH 10 ML FLUSH IV FLUSH SCH ×2 (09:00→21:00)
[2016-10-08] MEDS: PANTOPRAZOLE SOD 40 MG DELAYED RELEASE TAB PO SCH (09:41)
[2016-10-08] MEDS: HYDROCHLOROTHIAZIDE 25 MG TAB PO SCH (09:41)
[2016-10-08] MEDS: DOCUSATE SODIUM 50 MG/SENNA 8.6 MG TAB PO SCH ×2 (09:41→22:06)
[2016-10-08] MEDS: OLANZapine ODT 5 MG TAB PO SCH ×2 (09:42→22:06)
[2016-10-08] MEDS: NYSTATIN 100,000 UNIT/GM CREAM 15 GM TOPICAL SCH ×2 (09:43→21:00)
--- NOTE | 2016-10-08 10:29 | HHI.PR ---
Subjective Remarks Follow-up for inability to place patient, MS, psychosis. Patient complains about not receiving double portions of his meals. Although indicated on his diet order I did tell the patient he is on heart healthy diet. Objective Vitals Vital Signs Date Time Temp Pulse Resp B/P Pulse Ox O2 Delivery O2 Flow Rate FiO2 10/08/16 08:00 97.6 74 18 122/74 96 10/07/16 20:00 98.4 94 18 148/77 95 I/O 10/07/16 10/07/16 10/07/16 10/08/16 10/08/16 10/08/16 07:00 15:00 23:00 07:00 15:00 23:00 Intake Total 480 ml 480 ml 1080 ml 480 ml Output Total 550 ml 900 ml 1400 ml 300 ml Balance -70 ml -420 ml 1080 ml -920 ml -300 ml Intake Oral 480 ml 480 ml 1080 ml 480 ml Output Urine Total 550 ml 900 ml 1400 ml 300 ml # Voids 1 4 # Bowel Movements 0 0 0 0 Objective Remarks GENERAL: Well-nourished, well-developed patient in no apparent distress. CARDIOVASCULAR: Regular rate and rhythm. RESPIRATORY: No accessory muscle use. Clear to auscultation. Breath sounds equal bilaterally. GASTROINTESTINAL: Abdomen non-tender, nondistended. MUSCULOSKELETAL: Swelling of bilateral ankles and feet. NEUROLOGICAL: Awake and alert. Normal speech. PSYCHIATRIC: Appropriate mood and affect. Urinary Catheter: No Vascular Central Line Catheter: No A/P Problem List: (1) Hospital admission due to social situation ICD Code: Z60.9 Status: Acute Assessment and Plan 41 year old male with: Hospital admission due to social situation: Patient was just discharged from the hospital on 10/06/16 to a facility in [place], but apparently there was a problem with acceptance and the patient returned here. 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 -Continue OT and PT Psychosis: -Continue Zyprexa Cognitive impairment: Stable. Could be related to MS or psychosis HTN: BP normal this morning -Continue HCTZ DVT prevention: heparin sq. Discharge Planning 10/08/16: Earline liaison evaluating patient for all of her associate facilities. Yuli Marte Oct 08, 2016 10:29
[2016-10-08 20:56] VITALS: BP 157/89; PULSE 93; RESP 16; TEMP 97.5; O2SAT 95
[2016-10-09] VITALS: BP 148/82; PULSE 89; RESP 18; TEMP 98; O2SAT 96
[2016-10-09] MEDS: HEPARIN SODIUM - SQ 10,000 UNITS/ML VIAL SQ SCH ×3 (04:00→20:00)
[2016-10-09 08:00] VITALS: BP 138/80; PULSE 84; RESP 18; TEMP 98.7; O2SAT 97
[2016-10-09] MEDS: SODIUM CHLORIDE 0.9% FLUSH 10 ML FLUSH IV FLUSH SCH ×2 (09:00→21:00)
[2016-10-09] MEDS: PANTOPRAZOLE SOD 40 MG DELAYED RELEASE TAB PO SCH (09:55)
[2016-10-09] MEDS: DOCUSATE SODIUM 50 MG/SENNA 8.6 MG TAB PO SCH ×2 (09:55→22:35)
[2016-10-09] MEDS: OLANZapine ODT 5 MG TAB PO SCH ×2 (09:55→22:35)
[2016-10-09] MEDS: HYDROCHLOROTHIAZIDE 25 MG TAB PO SCH (09:55)
--- NOTE | 2016-10-09 11:16 | HHI.PR ---
Objective Vitals Vital Signs Date Time Temp Pulse Resp B/P Pulse Ox O2 Delivery O2 Flow Rate FiO2 10/09/16 08:00 98.7 84 18 138/80 97 10/09/16 04:00 10/09/16 00:00 98.0 89 18 148/82 96 10/08/16 20:56 97.5 93 16 157/89 95 I/O 10/08/16 10/08/16 10/08/16 10/09/16 10/09/16 10/09/16 06:59 14:59 22:59 06:59 14:59 22:59 Intake Total 480 ml 1125 ml Output Total 1400 ml 300 ml 1250 ml 450 ml Balance -920 ml 825 ml -1250 ml -450 ml Intake Oral 480 ml 1125 ml Output Urine Total 1400 ml 300 ml 1250 ml 450 ml # Voids 2 # Bowel Movements 0 0 A/P Problem List: (1) Hospital admission due to social situation ICD Code: Z60.9 Status: Acute Assessment and Plan 41 year old male with: Hospital admission due to social situation: Patient was just discharged from the hospital on 10/06/16 to a facility in [place], but apparently there was a problem with acceptance and the patient returned here. 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 -Continue OT and PT Psychosis: -Continue Zyprexa Cognitive impairment: Stable. Could be related to MS or psychosis HTN: BP normal this morning -Continue HCTZ DVT prevention: heparin sq. Discharge Planning 10/08/16: Earline liaison evaluating patient for all of her associate facilities. Yuli Marte Oct 09, 2016 11:16 HTN: BP normal this morning -Continue HCTZ DVT prevention: heparin sq. Discharge Planning 10/08/16: Earline liaison evaluating patient for all of her associate facilities. Yuli Marte Oct 09, 2016 11:16
--- NOTE | 2016-10-09 12:53 | HHI.PR ---
Subjective Remarks Follow-up for inability to place patient, MS, psychosis. Patient is holding his thumb up like a hitchhiker when I enter the room and he states he is trying to get a ride. No acute complaints. Objective Vitals Vital Signs Date Time Temp Pulse Resp B/P Pulse Ox O2 Delivery O2 Flow Rate FiO2 10/09/16 08:00 98.7 84 18 138/80 97 10/09/16 04:00 10/09/16 00:00 98.0 89 18 148/82 96 10/08/16 20:56 97.5 93 16 157/89 95 I/O 10/08/16 10/08/16 10/08/16 10/09/16 10/09/16 10/09/16 07:00 15:00 23:00 07:00 15:00 23:00 Intake Total 480 ml 1125 ml Output Total 1400 ml 300 ml 1250 ml 450 ml Balance -920 ml 825 ml -1250 ml -450 ml Intake Oral 480 ml 1125 ml Output Urine Total 1400 ml 300 ml 1250 ml 450 ml # Voids 2 # Bowel Movements 0 0 Objective Remarks GENERAL: Well-nourished, well-developed patient in no apparent distress. CARDIOVASCULAR: Regular rate and rhythm. RESPIRATORY: No accessory muscle use. Clear to auscultation. Breath sounds equal bilaterally. GASTROINTESTINAL: Abdomen non-tender, nondistended. NEUROLOGICAL: Awake and alert. 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 4/5 quadriceps strength bilaterally. 5/5 lower leg strength bilaterally. Normal speech. PSYCHIATRIC: Calm mood and normal affect on exam, but shouts something before I enter the room. Odd behavior of holding his arm out with thumb up like he is hitchhiking as I enter the room. Urinary Catheter: No Vascular Central Line Catheter: No A/P Problem List: (1) Hospital admission due to social situation ICD Code: Z60.9 Status: Acute Assessment and Plan 41 year old male with: Hospital admission due to social situation: Patient was just discharged from the hospital on 10/06/16 to a facility in [place], but apparently there was a problem with acceptance and the patient returned here. 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 -Continue OT and PT Psychosis: -Continue Zyprexa Cognitive impairment: Stable. Could be related to MS or psychosis HTN: BP normal this morning -Continue HCTZ -Monitor and adjust medication as needed. DVT prevention: heparin sq. Discharge Planning 10/08/16: Earline liaison evaluating patient for all of her associate facilities. Yuli Marte Oct 09, 2016 12:53
[2016-10-09 20:00] VITALS: BP 143/85; PULSE 81; RESP 20; TEMP 96.2; O2SAT 96
[2016-10-09] MEDS: NYSTATIN 100,000 UNIT/GM CREAM 15 GM TOPICAL SCH (21:00)
[2016-10-10] MEDS: HEPARIN SODIUM - SQ 10,000 UNITS/ML VIAL SQ SCH ×3 (04:00→20:57)
[2016-10-10 08:00] VITALS: BP 137/83; PULSE 93; RESP 18; TEMP 97.3; O2SAT 96
[2016-10-10] MEDS: HYDROCHLOROTHIAZIDE 25 MG TAB PO SCH (08:08)
[2016-10-10] MEDS: IBUPROFEN 600 MG TAB PO PRN (08:08)
[2016-10-10] MEDS: PANTOPRAZOLE SOD 40 MG DELAYED RELEASE TAB PO SCH (08:08)
[2016-10-10] MEDS: OLANZapine ODT 5 MG TAB PO SCH ×2 (08:08→20:57)
[2016-10-10] MEDS: DOCUSATE SODIUM 50 MG/SENNA 8.6 MG TAB PO SCH ×2 (08:09→20:57)
[2016-10-10] MEDS: SODIUM CHLORIDE 0.9% FLUSH 10 ML FLUSH IV FLUSH SCH ×2 (08:09→20:56)
[2016-10-10] MEDS: NYSTATIN 100,000 UNIT/GM CREAM 15 GM TOPICAL SCH (08:21)
--- NOTE | 2016-10-10 10:06 | HHI.PR ---
Subjective Remarks Follow-up for inability to place patient, MS, psychosis. States his legs are locked up this morning. Patient complains of rash at his waist. Objective Vitals Vital Signs Date Time Temp Pulse Resp B/P Pulse Ox O2 Delivery O2 Flow Rate FiO2 10/09/16 20:00 96.2 81 20 143/85 96 I/O 10/09/16 10/09/16 10/09/16 10/10/16 10/10/16 10/10/16 07:00 15:00 23:00 07:00 15:00 23:00 Intake Total 960 ml 240 ml Output Total 450 ml 1200 ml Balance -450 ml 960 ml -960 ml Intake Oral 960 ml 240 ml Output Urine Total 450 ml 1200 ml # Voids 4 # Bowel Movements 0 Objective Remarks GENERAL: Well nourished, well developed male in no apparent distress sitting on the side of the bed in urine soiled underwear and t-shirt. SKIN: Patient examined in the presence of a nurse. There does not appear to be a rash at the intertriginous region below the abdomen, but the area is very moist. CARDIOVASCULAR: Regular rate and rhythm. RESPIRATORY: No accessory muscle use. Clear to auscultation. Breath sounds equal bilaterally. NEUROLOGICAL: Awake and alert. Near full career services representative strength bilaterally. 4/5 quadriceps strength bilaterally. Normal speech. PSYCHIATRIC: Appropriate mood and affect. Urinary Catheter: No Vascular Central Line Catheter: No A/P Problem List: (1) Hospital admission due to social situation ICD Code: Z60.9 Status: Acute Assessment and Plan 41 year old male with: Hospital admission due to social situation: Patient was just discharged from the hospital on 10/06/16 to a facility in [place], but apparently there was a problem with acceptance and the patient returned here. 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 -Continue OT and PT Psychosis: -Continue Zyprexa Cognitive impairment: Stable. Could be related to MS or psychosis HTN: BP normal this morning -Continue HCTZ -Monitor and adjust medication as needed. Rash: Patient has been using Nystatin cream for a rash at his waist and inguinal region. Patient states rash is only to waistline today. There is no rash evident today but the area is very moist as underwear is saturated with urine. -Will change Nystatin cream to powder due to moist area and change to prn as no rash evident today. Patient needs to practice better cleansing, keeping the area dry. Monitor clinically. DVT prevention: heparin sq. Discharge Planning 10/08/16: Earline liaison evaluating patient for all of her associate facilities. Yuli Marte Oct 10, 2016 10:05
[2016-10-10] MEDS ORDERED: NYSTATIN 100,000 U/GM PWD 15 GM BTL TOPICAL PRN (12:00)
[2016-10-10 20:00] VITALS: BP 126/86; PULSE 91; RESP 20; TEMP 98.1; O2SAT 94
[2016-10-11] MEDS: HEPARIN SODIUM - SQ 10,000 UNITS/ML VIAL SQ SCH ×3 (04:00→20:43)
[2016-10-11 08:00] VITALS: BP_SYST 142; BP_SYST 97; BP_DIAS 64; BP_DIAS 75; PULSE 79; PULSE 81; RESP 19; TEMP 96.8; TEMP 97.1; O2SAT 94; O2SAT 97
[2016-10-11] MEDS: SODIUM CHLORIDE 0.9% FLUSH 10 ML FLUSH IV FLUSH SCH ×2 (09:00→20:43)
[2016-10-11] MEDS: PANTOPRAZOLE SOD 40 MG DELAYED RELEASE TAB PO SCH (09:53)
[2016-10-11] MEDS: HYDROCHLOROTHIAZIDE 25 MG TAB PO SCH (09:53)
[2016-10-11] MEDS: OLANZapine ODT 5 MG TAB PO SCH ×2 (09:53→20:43)
[2016-10-11] MEDS: DOCUSATE SODIUM 50 MG/SENNA 8.6 MG TAB PO SCH ×2 (09:53→20:43)
--- NOTE | 2016-10-11 11:40 | HHI.PR ---
Subjective Remarks Follow-up for inability to place patient, MS, psychosis. When I walk into the room the patient immediately asks "I'm leaving?". He asked if he'll have physical therapy when he goes. He again asks about MS medication which we have discussed before. Objective Vitals Vital Signs Date Time Temp Pulse Resp B/P Pulse Ox O2 Delivery O2 Flow Rate FiO2 10/11/16 08:00 96.8 81 19 142/75 97 10/10/16 20:00 98.1 91 20 126/86 94 I/O 10/10/16 10/10/16 10/10/16 10/11/16 10/11/16 10/11/16 06:59 14:59 22:59 06:59 14:59 22:59 Intake Total 240 ml 1600 ml Output Total 1200 ml 900 ml 100 ml Balance -960 ml 700 ml -100 ml Intake Oral 240 ml 1600 ml Output Urine Total 1200 ml 900 ml 100 ml # Voids 8 # Bowel Movements 0 Objective Remarks GENERAL: Well nourished, well developed male in no apparent distress. CARDIOVASCULAR: Regular rate and rhythm. RESPIRATORY: No accessory muscle use. Clear to auscultation. Breath sounds equal bilaterally. MUSCULOSKELETAL: Both ankles appear swollen, but there is no pitting edema. NEUROLOGICAL: Awake and alert. 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 4/5 quadriceps strength bilaterally. Normal speech. PSYCHIATRIC: Appropriate mood and affect on exam but after I leave the room the patient shouts something random, unsure to what he is referring. Urinary Catheter: No Vascular Central Line Catheter: No A/P Problem List: (1) Hospital admission due to social situation ICD Code: Z60.9 Status: Acute Assessment and Plan 41 year old male with: Hospital admission due to social situation: Patient was just discharged from the hospital on 10/06/16 to a facility in [place], but apparently there was a problem with acceptance and the patient returned here. 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 -Continue OT and PT Psychosis: -Continue Zyprexa Cognitive impairment: Stable. Could be related to MS or psychosis HTN: BP only mildly elevated this morning -Continue HCTZ -Monitor and adjust medication as needed. Rash: Patient has been using Nystatin cream for a rash at his waist and inguinal region. -10/10: Patient states rash is only to waistline today. There is no rash evident today but the area is very moist as underwear is saturated with urine. Nystatin cream changed to powder prn due to moist area as no rash evident. Patient needs to practice better cleansing, keeping the area dry. Monitor clinically. DVT prevention: heparin sq. Discharge Planning 10/08/16: Earline liaison evaluating patient for all of her associate facilities. Yuli Marte Oct 11, 2016 11:40
[2016-10-11 20:00] VITALS: BP 144/74; PULSE 75; RESP 20; TEMP 97.8; O2SAT 97
[2016-10-11] MEDS: IBUPROFEN 600 MG TAB PO PRN (21:54)
[2016-10-12] MEDS: HEPARIN SODIUM - SQ 10,000 UNITS/ML VIAL SQ SCH ×3 (04:00→20:00)
[2016-10-12] MEDS: PANTOPRAZOLE SOD 40 MG DELAYED RELEASE TAB PO SCH (09:00)
[2016-10-12] MEDS: OLANZapine ODT 5 MG TAB PO SCH ×2 (09:00→21:45)
[2016-10-12] MEDS: HYDROCHLOROTHIAZIDE 25 MG TAB PO SCH (09:00)
[2016-10-12] MEDS: DOCUSATE SODIUM 50 MG/SENNA 8.6 MG TAB PO SCH ×2 (09:00→21:00)
[2016-10-12] MEDS: SODIUM CHLORIDE 0.9% FLUSH 10 ML FLUSH IV FLUSH SCH (09:00)
--- NOTE | 2016-10-12 15:06 | HHI.PR ---
Subjective Remarks Patient seen and examined today for follow-up on MS. Patient denies any new complaints. No change in clinical status. Objective Vitals Vital Signs Date Time Temp Pulse Resp B/P Pulse Ox O2 Delivery O2 Flow Rate FiO2 10/11/16 20:00 97.8 75 20 144/74 97 I/O 10/11/16 10/11/16 10/11/16 10/12/16 10/12/16 10/12/16 07:00 15:00 23:00 07:00 15:00 23:00 Intake Total 750 ml 480 ml Output Total 900 ml 1700 ml Balance -150 ml -1220 ml Intake Oral 750 ml 480 ml Output Urine Total 900 ml 1700 ml Objective Remarks GENERAL: Well-developed, well-nourished, in no acute distress. alert and orientated HEENT: Head is normocephalic without any lesions or masses noted. Facial features are symmetric. Eyes: Extraocular muscles are intact. Conjunctivae were clear. NECK: Supple without any masses. Trachea midline no deviation. No JVD, CARDIAC: Regular rhythm, regular rate. S1/S2 are heard. No murmurs gallops or rubs. LUNGS: Clear to auscultation bilaterally. No wheeze, rhonchi or rales. No use of accessory muscles on inspiration or expiration. ABDOMEN: Soft, nontender. Nondistended. Bowel sounds heard in all 4 quadrants. No organomegaly or masses. Negative rebound, negative guarding EXTREMITIES: 1+ pitting edema noted in the right lower extremity, pulses are equal bilaterally. No cyanosis or clubbing. NEUROLOGY: Mood and affect appear appropriate. Cranial nerves II through XII grossly intact. Moving all extremities, speech is clear Urinary Catheter: No Vascular Central Line Catheter: No A/P Assessment and Plan Hospital admission due to social situation: Patient was discharged from the hospital on 10/06/16 to facility in [place]. 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 Patient had evaluation done by the therapy on last admission and he has MOCA score of 12/30 indicating moderate to severe cognitive impairment. Hypertension continue HCTZ 25 mg daily Add Norvasc 10 mg daily Tinea infection, inguinal and waistline Nystatin powder twice daily DVT prevention: Subcutaneous heparin Discharge Planning Case management for discharge planning Adrien Marquez Oct 12, 2016 15:06
[2016-10-12] MEDS ORDERED: AMLO10 PO (16:17)
--- NOTE | 2016-10-12 16:18 | HHI.DCPOC ---
Discharge Care Plan Diagnosis: (1) Multiple sclerosis (2) Psychosis Goals to Promote Your Health * To prevent worsening of your condition and complications * To maintain your health at the optimal level Directions to Meet Your Goals Take your medications as prescribed Follow your dietary instruction Follow activity as directed Keep your appointments as scheduled Take your immunizations and boosters as scheduled If your symptoms worsen call your PCP, if no PCP go to Urgent Care Center or Emergency Room Smoking is Dangerous to Your Health. Avoid second hand smoke Call the 24-hour hour crisis hotline for domestic abuse at Adrien Marquez Oct 12, 2016 16:18
--- NOTE | 2016-10-12 16:21 | HHI.DS ---
Discharge Summary Admission Date Oct 06, 2016 at 18:25 Discharge Date: Oct 12, 2016 Admitting Diagnosis MULTIPLE SCLEROSIS (1) Hospital admission due to social situation ICD Code: Z60.9 Diagnosis: Principal Procedures None Brief History - From Admission Written by Yuli Marte PA-C acting as scribe for Dr. Arriola on 10/07/16 at 1155. 41-year-old -[place] male was readmitted to the hospital yesterday after being discharged. He was initially admitted to [place] on 09/01/16 with weakness and was found to have MS exacerbation and was evaluated and treated by neurology. Also found to have psychosis and cognitive impairment. He had been discharged to the [facility] yesterday, but apparently was not accepted. According to the [employer]er shoe parts's note from today, the patient had confirmation of acceptance to the facility. Apparently the facility refused to accept the patient regarding an unknown issue with the insurance. The patient complains about not having the proper diet. He also complains about not receiving sufficient physical therapy stating he has limited ambulation. PE at Discharge GENERAL: Well-developed, well-nourished, in no acute distress. alert and orientated HEENT: Head is normocephalic without any lesions or masses noted. Facial features are symmetric. Eyes: Extraocular muscles are intact. Conjunctivae were clear. NECK: Supple without any masses. Trachea midline no deviation. No JVD, CARDIAC: Regular rhythm, regular rate. S1/S2 are heard. No murmurs gallops or rubs. LUNGS: Clear to auscultation bilaterally. No wheeze, rhonchi or rales. No use of accessory muscles on inspiration or expiration. ABDOMEN: Soft, nontender. Nondistended. Bowel sounds heard in all 4 quadrants. No organomegaly or masses. Negative rebound, negative guarding EXTREMITIES: 1+ pitting edema noted in the right lower extremity, pulses are equal bilaterally. No cyanosis or clubbing. NEUROLOGY: Mood and affect appear appropriate. Cranial nerves II through XII grossly intact. Moving all extremities, speech is clear Hospital Course 41-year-old male who is admitted this time because of social issues. Patient did have a long hospitalization previously due to discharge difficulties. Patient was discharged to a facility in [place], however once patient arrived patient was refused admission at that time. Patient was transferred back to [facility] and readmitted. Patient was resumed on his medications. Awaiting case management for discharge planning. Discharge planning has been arranged to another facility in [place]. Patient does have a room number and awaiting transportation to arrive at the facility. Pt Condition on Discharge: Stable Discharge Disposition: Discharge to SNF Discharge Time: > 30 minutes Discharge Instructions DIET: Follow Instructions for: As Tolerated, No Restrictions Activities you can perform: Regular-No Restrictions Follow up Referrals: PCP Follow-up - 1 Week New Medications: Amlodipine (Norvasc) 10 Mg Tab 10 MG PO DAILY Blood Pressure Management #30 Ref 0 TAB Continued Medications: Heparin Sodium (Porcine) (Heparin Sodium) 10,000 Unit/Ml Inj 5000 UNITS SQ Q8H Blood Clot Prevention Days 30 INJECTION Hydrochlorothiazide (Hydrochlorothiazide) 25 Mg Tab 25 MG PO DAILY Blood Pressure Management #30 TAB Ibuprofen (Ibuprofen) 600 Mg Tab 600 MG PO Q8H PRN PAIN 4-10 #20 TAB Nystatin Topical (Nystatin Topical) 100,000 unit/gm Cream 1 APPLIC TOPICAL Q12HR apply to waistline, inguinal area Rash #1 TUBE Olanzapine Odt (Zyprexa Zydis) 5 Mg Tab 10 MG PO BID Psychosis #120 TAB Pantoprazole (Pantoprazole) 40 Mg Tab 40 MG PO DAILY GI protection #30 TAB Adrien Marquez Oct 12, 2016 16:21
[2016-10-12 20:00] VITALS: BP 113/72; PULSE 81; RESP 16; TEMP 97.2; O2SAT 95
[2016-10-12] MEDS: IBUPROFEN 600 MG TAB PO PRN (23:04)
[2016-10-13] MEDS: HEPARIN SODIUM - SQ 10,000 UNITS/ML VIAL SQ SCH ×2 (04:00→12:00)
[2016-10-13 08:00] VITALS: BP 160/90; PULSE 91; RESP 21; TEMP 98; O2SAT 96
[2016-10-13] MEDS: DOCUSATE SODIUM 50 MG/SENNA 8.6 MG TAB PO SCH (08:29)
[2016-10-13] MEDS: PANTOPRAZOLE SOD 40 MG DELAYED RELEASE TAB PO SCH (08:29)
[2016-10-13] MEDS: OLANZapine ODT 5 MG TAB PO SCH (08:29)
[2016-10-13] MEDS: HYDROCHLOROTHIAZIDE 25 MG TAB PO SCH (08:29)
--- NOTE | 2016-10-13 11:07 | HHI.PR ---
Subjective Remarks Written by Adrien Marquez, acting as scribe for Dr. Johnson on 10/13/16 at 11 :05. Patient seen and examined by Dr. Johnson, patient was arranged for discharge yesterday, however transportation was not available prior to closing time of the facility. Patient was held overnight for discharge today. Patient denies any complaints. Please refer to discharge summary dated 10/12/16. Objective Vitals Vital Signs Date Time Temp Pulse Resp B/P Pulse Ox O2 Delivery O2 Flow Rate FiO2 10/13/16 08:00 98.0 91 21 160/90 96 10/12/16 20:00 97.2 81 16 113/72 95 I/O 10/12/16 10/12/16 10/12/16 10/13/16 10/13/16 10/13/16 06:59 14:59 22:59 06:59 14:59 22:59 Intake Total 480 ml 720 ml 480 ml 100 ml Output Total 1700 ml 450 ml 250 ml Balance -1220 ml 270 ml 230 ml 100 ml Intake Oral 480 ml 720 ml 480 ml 100 ml Output Urine Total 1700 ml 450 ml 250 ml # Bowel Movements 0 0 Objective Remarks GENERAL: Well-developed, well-nourished, in no acute distress. alert and orientated HEENT: Head is normocephalic without any lesions or masses noted. Facial features are symmetric. Eyes: Extraocular muscles are intact. Conjunctivae were clear. NECK: Supple without any masses. Trachea midline no deviation. No JVD, CARDIAC: Regular rhythm, regular rate. S1/S2 are heard. No murmurs gallops or rubs. LUNGS: Clear to auscultation bilaterally. No wheeze, rhonchi or rales. No use of accessory muscles on inspiration or expiration. ABDOMEN: Soft, nontender. Nondistended. Bowel sounds heard in all 4 quadrants. No organomegaly or masses. Negative rebound, negative guarding EXTREMITIES: 1+ pitting edema noted in the right lower extremity, pulses are equal bilaterally. No cyanosis or clubbing. NEUROLOGY: Mood and affect appear appropriate. Cranial nerves II through XII grossly intact. Moving all extremities, speech is clear Procedures None Urinary Catheter: No Vascular Central Line Catheter: No A/P Assessment and Plan Hospital admission due to social situation: Patient was discharged from the hospital on 10/06/16 to facility in [place]. 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 Patient had evaluation done by the therapy on last admission and he has MOCA score of 12/30 indicating moderate to severe cognitive impairment. Hypertension continue HCTZ 25 mg daily Add Norvasc 10 mg daily Tinea infection, inguinal and waistline Nystatin powder twice daily DVT prevention: Subcutaneous heparin This note was transcribed by scribe [Adrien Marquez]. I, Dr. Keli Johnson, personally performed the history, physical exam, and medical decision making; and confirmed the accuracy of the information in the transcribed note. Discharge Planning Discharge to facility once transportation arranged Adrien Marquez Oct 13, 2016 11:07 Keli Johnson MD Oct 13, 2016 12:50
== END 2016-10-13 12:40 | DRG 60 ==
LOC: PHEFT 17:28 → PHEDA 18:25 → PH5A 18:45
PROVIDERS: ADMIT Internal Medicine; ATTEND Internal Medicine
DX: G35 Multiple sclerosis (principal); I10 Essential (primary) hypertension; B35.8 Other dermatophytoses; F29 Unspecified psychosis not due to a substance or known physiological condition; F17.210 Nicotine dependence, cigarettes, uncomplicated; R60.0 Localized edema
CPT/HCPCS: 80048; G0378; J1644